=== PATIENT | female | born 1930 | race Caucasian/White ===

== ENCOUNTER 2017-07-04 10:22 | Inpatient (IN) | payer MEDICARE, OTHER ==
[~2017-07-04] VITALS: Ht 162.6 cm; Wt 59.0 kg
[2017-07-04] MEDS ORDERED: Ampicillin/Sulbactam Sod 3 GM in NS 110 ML IV SCH (11:00)
--- NOTE | 2017-07-04 11:51 | Diagnostic Imaging Report ---
Indication: Headache Technique: Contiguous 5 mm thick transaxial imaging of the head obtained in a Siemens Sensation [address] scanner. Soft tissue and bone windows generated. Total Dose length Product (DLP): [address] Dose Index Volume (CTDIvol): 70.38 mGy Comparison: none Findings: There is mild prominence of the ventricles, basal cisterns, and cerebral sulci consistent with atrophy. Mild, nonspecific, white matter hypoattenuation is noted throughout the brain consistent with chronic small vessel disease. There is no midline shift, edema, acute hemorrhage, mass effect, or abnormal extra-axial fluid collections. Bones and extra osseous soft tissues are unremarkable. There is a moderate amount of paranasal sinus opacification. Impression: No acute intracranial bleed, mass effect or edema. Mild atrophy of the brain. Nonspecific white matter hypoattenuation probably due to chronic small vessel disease. Moderate pansinusitis The CT scanner at [facility] is accredited by the [employer] and the scans are performed using dose optimization techniques as appropriate to a performed exam including Automatic Exposure control.
[2017-07-04] MEDS ORDERED: Unasyn 3gm Inj ONE (11:52)
[2017-07-04 12:00] LABS: MEAN CORPUSCULAR HEMOGLOBIN 30.2 PG (27.0-31.0); MEAN CORPUSCULAR HGB CONC 32.8 G/DL (32.0-36.0); MEAN CORPUSCULAR VOLUME 92 FL (80-99); MEAN PLATELET VOLUME 8.5 FL (6.5-10.1); PLATELET COUNT 234 K/UL (150-450)
[2017-07-04 12:06] LABS: PROTHROMBIN TIME 10.6 SEC (9.30-11.50)
[2017-07-04 12:12] LABS: WHITE BLOOD COUNT 39.6 K/UL (4.8-10.8)
[2017-07-04 12:13] LABS: ALANINE AMINOTRANSFERASE 31 U/L (3-33); ALBUMIN/GLOBULIN RATIO 1.2 (1.0-2.7); ANION GAP 17 (5-15); ASPARTATE AMINO TRANSFERASE 23 U/L (5-40); CALCIUM 9.6 mg/dL (8.6-10.2); CARBON DIOXIDE 23 mEQ/L (20-30); CHLORIDE 97 mEQ/L (98-107); CREATININE 0.9 mg/dL (0.5-0.9); HEMOLYSIS 4; POTASSIUM 3.9 mEQ/L (3.4-4.9); SODIUM 137 mEQ/L (135-145); TOTAL PROTEIN 6.6 g/dL (6.6-8.7); TROPONIN I < 0.30 ng/mL (<=0.30)
[2017-07-04 12:21] VITALS: BP 113/74
[2017-07-04 12:23] LABS: CKMB 3.8 ng/mL (< 3.8)
--- NOTE | 2017-07-04 12:32 | Diagnostic Imaging Report ---
Indication: Dyspnea Comparison: 12/29/10 A single view chest radiograph was obtained. Findings: There is a vague density at the right lung base. Pneumonia not excluded. This could be soft tissue attenuation or something overlying the patient is well. The heart is normal in size. The bones are osteopenic. Impression: Question of infiltrate involving the right lung base.
[2017-07-04 12:34] LABS: BAND NEUTROPHILS % (MANUAL) 2 % (0-8); BASOPHILS % (MANUAL) 0 % (0-2); EOSINOPHILS % (MANUAL) 0 % (0-3); LYMPHOCYTES % (MANUAL) 6 % (20-45); METAMYELOCYTES % 1 % (0-0); MYELOCYTES % 2 % (0-0); NEUTROPHILS % (MANUAL) 85 % (45-75); PLATELET ESTIMATE ADEQUATE; PLATELET MORPHOLOGY NORMAL; TOTAL CELLS COUNTED 100
[2017-07-04 12:35] LABS: BILIRUBIN,DIRECT 0.5 mg/dL (0.1-0.3)
[2017-07-04 12:36] LABS: HYPOCHROMASIA 1+
[2017-07-04 14:00] VITALS: BP 130/68
[2017-07-04 14:28] LABS: APPEARANCE,URINE SLIGHTLY CLOUDY; KETONES,URINE 2+ (NEGATIVE); LEUKOCYTE ESTERASE ,URINE 1+ (NEGATIVE); NITRITE,URINE NEGATIVE (NEGATIVE); PH,URINE 5 (4.5-8.0); PROTEIN,URINE 2+ (NEGATIVE); UROBILINOGEN,URINE NORMAL MG/DL (0.0-1.0)
[2017-07-04 14:40] LABS: AMORPHOUS SEDIMENT,UR FEW /LPF; BACTERIA,URINE FEW /HPF; MUCUS,URINE FEW /LPF (NONE/OCC); SQUAMOUS EPITHELIAL CELL,UR FEW /LPF (NONE/OCC)
[2017-07-04] MEDS ORDERED: DuoNeb 0.5-3(2.5)mg/3ml neb HHN PRN (14:45)
[2017-07-04] MEDS ORDERED: LORazepam Inj 2mg/ml 1ml IV PRN (14:45)
[2017-07-04] MEDS ORDERED: Miralax 17gm pkt ORAL PRN (14:45)
--- NOTE | 2017-07-04 14:49 | Emergency Room Report ---
History of Present Illness General Chief Complaint: General Complaint Source: Patient Present Illness HPI This is a 87-year-old female presented after increased fever to 101. She reported increased left eye discharge and had been recently seen by ophthalmology and started on topical antibiotics. Patient had been noted to have decreased hearing. She had been having some increased cough. The patient had been seen by primary care physician 2 days ago. Patient was noted to have elevated white blood count at that time. Patient was followed by Dr. Henderson. The patient had reported history of non-Hodgkin's lymphoma many years ago. She had normal white blood count is for many years Allergies: Coded Allergies: DEMECLOCYCLINE (Verified Allergy, Unknown, 12/29/10) Patient History Past Medical History: see triage record Reviewed Nursing Documentation: PMH: Agreed, PSxH: Agreed Nursing Documentation-PMH Past Medical History: Deferred Review of Systems All Other Systems: negative except mentioned in HPI Physical Exam Vital Signs Date Time Temp Pulse Resp B/P Pulse Ox O2 Delivery O2 Flow Rate FiO2 07/04/17 10:39 98.2 98 16 147/63 97 Room Air 07/04/17 12:21 2.0 Sp02 EP Interpretation: reviewed, normal General Appearance: normal inspection, well appearing, no apparent distress, alert Head: atraumatic ENT: normal voice, other - bilateral ear tm erythema, decreased hearing. Neck: normal inspection, full range of motion, supple, no bony tend Respiratory: normal inspection, chest non-tender, no respiratory distress, no retraction, no wheezing, crackles Cardiovascular #1: regular rate, rhythm, no edema Gastrointestinal: normal inspection, normal bowel sounds, non tender, soft, no guarding, no hernia Genitourinary: no CVA tenderness Musculoskeletal: normal inspection, back normal, normal range of motion Neurologic: normal inspection, alert, responsive, speech normal Psychiatric: normal inspection, judgement/insight normal, mood/affect normal Skin: normal inspection, normal color, no rash Medical Decision Making Diagnostic Impression: Primary Impression: Pneumonia Additional Impressions: Pansinusitis Hx of lymphoma, non-Hodgkins ER Course Patient presented for fever. Differential diagnosis included wasn't limited to pneumonia, urinary tract infection, drug fever, allergic reaction, sepsis, cholecystitis, among others.Because of complexity of patient's case laboratory testing and imaging studies were ordered. A CT imaging of the head was ordered due to the patient's change in hearing. CT read by radiology showed pansinusitis with atrophic changes noted. A chest x-ray one view showed a right lung infiltrate. The patient started on IV antibiotics. Dr. Pal was contacted for inpatient management due to complexity of medical condition. EKG Diagnostic Results Rate: normal Rhythm: NSR ST Segments: no acute changes Rhythm Strip Diag. Results EP Interpretation: yes Rhythm: NSR, no PVC's, no ectopy Last Vital Signs Date Time Temp Pulse Resp B/P Pulse Ox O2 Delivery O2 Flow Rate FiO2 07/04/17 12:21 98.2 101 30 113/74 100 Nasal Cannula 2.0 Status: unchanged [facility] Condition: Stable Referrals: NON PHYSICIAN (PCP) Darnell Worrell Jul 04, 2017 14:49
[2017-07-04] MEDS ORDERED: FAMOTIDINE20 MG ORAL (15:25)
[2017-07-04] MEDS ORDERED: BETIMOL5 M2 OP (15:25)
[2017-07-04] MEDS ORDERED: PATADAY2.5 ML OP (15:25)
[2017-07-04] MEDS ORDERED: VITAMIN D400 INTLU ORAL (15:25)
[2017-07-04] MEDS ORDERED: FISH OIL CAP1000 MG ORAL (15:25)
[2017-07-04 16:24] VITALS: BP 140/45
[2017-07-04] MEDS ORDERED: Rx Monitoring Vancomycin MISC PRN (16:45)
[2017-07-04 17:26] VITALS: BP 138/56
[2017-07-04] MEDS: Vancomycin 1 GM in D5W 275 ML IVPB SCH (19:24)
[2017-07-04] MEDS: Cefepime HCl 1 GM in D5W 110 ML IVPB SCH ×2 (19:24→21:56)
[2017-07-04] MEDS: Heparin 5000 units/ml inj SUBQ SCH (20:38)
[2017-07-04 20:39] VITALS: BP_SYST 127; BP_SYST 161; BP_DIAS 56; BP_DIAS 78
--- NOTE | 2017-07-04 22:08 | History and Physical ---
History of Present Illness General Reason for Hospitalization: General Complaint Present Illness HPI 87 year old female with hx of lymphoma many years ago, presented to with CC of fever and decreasing hearing. She has bouts of cough. Her CXR in ER showed some RLL infiltrate, her wbc was increased. She is admitted for further work up. Allergies: Coded Allergies: DEMECLOCYCLINE (Verified Allergy, Unknown, 12/29/10) Medication History Scheduled Famotidine (Famotidine), 20 MG ORAL DAILY, (Reported) Fish Oil (Fish Oil 1,000 mg Capsule), 1,000 MG ORAL DAILY, (Reported) Olopatadine Hcl (Pataday), 2.5 ML OP PRN, (Reported) Timolol (Betimol), 5 ML OP BID, (Reported) Vitamin D (Vitamin D3), 1,000 UNITS ORAL DAILY, (Reported) Patient History Healthcare decision maker Resuscitation status Full Code Advanced Directive on File Past Medical/Surgical History Past Medical/Surgical History: (1) Hx of lymphoma, non-Hodgkins Review of Systems All Other Systems: negative except mentioned in HPI Physical Exam General Appearance: WD/WN, no apparent distress Lines, tubes and drains: peripheral, central line HEENT: normocephalic, atraumatic Neck: non-tender, supple Respiratory/Chest: chest wall non-tender, lungs clear Cardiovascular/Chest: normal peripheral pulses, normal rate Abdomen: normal bowel sounds, non tender Genitourinary/Rectal: normal genital exam, normal rectal exam Last 24 Hour Vital Signs Date Time Temp Pulse Resp B/P Pulse Ox O2 Delivery O2 Flow Rate FiO2 07/04/17 20:39 98.2 99 20 127/56 95 Nasal Cannula 2.0 07/04/17 17:26 99.7 105 18 138/56 93 Room Air 07/04/17 16:42 98.2 99 35 127/56 95 Room Air 2.0 07/04/17 16:24 98.2 99 35 140/45 95 Room Air 07/04/17 14:00 98.2 101 29 130/68 100 Nasal Cannula 2.0 07/04/17 12:21 98.2 101 30 113/74 100 Nasal Cannula 2.0 07/04/17 10:39 98.2 98 16 147/63 97 Room Air Laboratory Tests Test 07/04/17 11:50 07/04/17 14:00 White Blood Count 39.6 K/UL (4.8-10.8) *H Red Blood Count 4.10 M/UL (4.20-5.40) L Hemoglobin 12.4 G/DL (12.0-16.0) Hematocrit 37.8 % (37.0-47.0) Mean Corpuscular Volume 92 FL (80-99) Mean Corpuscular Hemoglobin 30.2 PG (27.0-31.0) Mean Corpuscular Hemoglobin Concent 32.8 G/DL (32.0-36.0) Red Cell Distribution Width 12.0 % (11.6-14.8) Platelet Count 234 K/UL (150-450) Mean Platelet Volume 8.5 FL (6.5-10.1) Neutrophils (%) (Auto) % (45.0-75.0) Lymphocytes (%) (Auto) % (20.0-45.0) Monocytes (%) (Auto) % (1.0-10.0) Eosinophils (%) (Auto) % (0.0-3.0) Basophils (%) (Auto) % (0.0-2.0) Differential Total Cells Counted 100 Neutrophils % (Manual) 85 % (45-75) H Lymphocytes % (Manual) 6 % (20-45) L Monocytes % (Manual) 4 % (1-10) Eosinophils % (Manual) 0 % (0-3) Basophils % (Manual) 0 % (0-2) Metamyelocytes % 1 % (0-0) H Myelocytes % 2 % (0-0) H Band Neutrophils 2 % (0-8) Platelet Estimate Adequate Platelet Morphology Normal Hypochromasia 1+ Prothrombin Time 10.6 SEC (9.30-11.50) Prothromb Time International Ratio 1.0 (0.9-1.1) Activated Partial Thromboplast Time 34 SEC (23-33) H Sodium Level 137 mEQ/L (135-145) Potassium Level 3.9 mEQ/L (3.4-4.9) Chloride Level 97 mEQ/L (98-107) L Carbon Dioxide Level 23 mEQ/L (20-30) Anion Gap 17 (5-15) H Blood Urea Nitrogen 20 mg/dL (7-23) Creatinine 0.9 mg/dL (0.5-0.9) Estimat Glomerular Filtration Rate mL/min (>60) Glucose Level 156 mg/dL (74-106) H Lactic Acid Level 1.70 mmol/L (0.66-2.22) Calcium Level 9.6 mg/dL (8.6-10.2) Total Bilirubin 1.3 mg/dL (0.0-1.2) H Direct Bilirubin 0.5 mg/dL (0.1-0.3) H Aspartate Amino Transf (AST/SGOT) 23 U/L (5-40) Alanine Aminotransferase (ALT/SGPT) 31 U/L (3-33) Alkaline Phosphatase 176 U/L (35-104) H Total Creatine Kinase 85 U/L (26-140) Creatine Kinase MB 3.8 ng/mL (< 3.8) Creatine Kinase MB Relative Index 4.4 Troponin I < 0.30 ng/mL (<=0.30) Total Protein 6.6 g/dL (6.6-8.7) Albumin 3.7 g/dL (3.5-5.2) Globulin 2.9 g/dL Albumin/Globulin Ratio 1.2 (1.0-2.7) Urine Color Yellow Urine Appearance Slightly cloudy Urine pH 5 (4.5-8.0) Urine Specific [place] 1.015 (1.005-1.035) Urine Protein 2+ (NEGATIVE) H Urine Glucose (UA) Negative (NEGATIVE) Urine Ketones 2+ (NEGATIVE) H Urine Occult Blood 3+ (NEGATIVE) H Urine Nitrite Negative (NEGATIVE) Urine Bilirubin Negative (NEGATIVE) Urine Urobilinogen Normal MG/DL (0.0-1.0) Urine Leukocyte Esterase 1+ (NEGATIVE) H Urine RBC 5-10 /HPF (0 - 2) H Urine WBC 2-4 /HPF (0 - 2) Urine Squamous Epithelial Cells Few /LPF (NONE/OCC) Urine Amorphous Sediment Few /LPF (NONE) H Urine Bacteria Few /HPF (NONE) Urine Mucus Few /LPF (NONE/OCC) H Height (Feet): 5 Height (Inches): 4.00 Weight (Pounds): 130 Medications Current Medications Medications (Trade) Dose Ordered Sig/Art Route PRN Reason Start Time Stop Time Status Last Admin Dose Admin Acetaminophen (Tylenol) 650 mg Q4H PRN ORAL FEVER 07/04/17 14:45 08/03/17 14:44 Albuterol/ Ipratropium 3 ml 3 ml Q4H PRN HHN Shortness of Breath 07/04/17 14:45 07/09/17 14:44 Cefepime HCl 1 gm/ Dextrose 110 ml @ 220 mls/hr Q24HRS IVPB 07/04/17 18:30 07/11/17 18:29 07/04/17 21:56 Dextrose (Dextrose 50%) STAT PRN IV Hypoglycemia 07/04/17 14:45 08/03/17 14:44 Heparin Sodium (Porcine) (Heparin 5000 units/ml) 5,000 units EVERY 12 HOURS SUBQ 07/04/17 21:00 08/03/17 20:59 07/04/17 20:38 Lorazepam (Ativan 2mg/ml 1ml) 2 mg Q2H PRN IV For Anxiety 07/04/17 14:45 07/11/17 14:44 Morphine Sulfate (Morphine Sulfate) 4 mg Q4H PRN IVP Severe Pain (Pain Scale 7-10) 07/04/17 14:45 07/11/17 14:44 Ondansetron HCl (Zofran) 4 mg Q6H PRN IVP Nausea & Vomiting 07/04/17 14:45 08/03/17 14:44 Polyethylene Glycol (Miralax) 17 gm DAILYPRN PRN ORAL Constipation 07/04/17 14:45 08/03/17 14:44 Sodium Chloride (0.45% NS 1000ml) 1,000 ml @ 50 mls/hr Q20H IV 07/04/17 17:00 08/03/17 16:59 07/04/17 19:01 Vancomycin HCl (Rx Monitoring Vancomycin) 1 ea DAILY PRN MISC PRN RX PROTOCOL 07/04/17 16:45 08/03/17 16:44 Vancomycin HCl/ Dextrose (Vancomycin/D5W) 275 ml @ 183.3 mls/ hr Q24H IVPB 07/04/17 17:00 07/09/17 16:59 07/04/17 19:24 Assessment/Plan Problem List: (1) Sepsis ICD Codes: A41.9 - Sepsis, unspecified organism SNOMED: 74658758 (2) Pneumonia ICD Codes: J18.9 - Pneumonia, unspecified organism SNOMED: 813053258 (3) Hx of lymphoma, non-Hodgkins ICD Codes: Z85.72 - Personal history of non-Hodgkin lymphomas SNOMED: 451849540 Assessment/Plan f/u wbc blood smear continue abx check sputum cultures ent evaluation ID evaluation. ADALGISA CHINCHILLA Jul 04, 2017 22:08
[2017-07-05] VITALS (7 sets, daily range): BP systolic 104–128; BP diastolic 56–64
[2017-07-05 07:00] LABS: MEAN CORPUSCULAR HEMOGLOBIN 30.3 PG (27.0-31.0); MEAN CORPUSCULAR HGB CONC 32.9 G/DL (32.0-36.0); MEAN CORPUSCULAR VOLUME 92 FL (80-99); MEAN PLATELET VOLUME 8.6 FL (6.5-10.1); PLATELET COUNT 200 K/UL (150-450); RED BLOOD COUNT 3.59 M/UL (4.20-5.40)
[2017-07-05 07:05] LABS: WHITE BLOOD COUNT 38.4 K/UL (4.8-10.8)
[2017-07-05 07:19] LABS: ANION GAP 13 (5-15); CALCIUM 8.9 mg/dL (8.6-10.2); CARBON DIOXIDE 24 mEQ/L (20-30); CHLORIDE 102 mEQ/L (98-107); CREATININE 0.7 mg/dL (0.5-0.9); HEMOLYSIS 2; POTASSIUM 3.4 mEQ/L (3.4-4.9); SODIUM 139 mEQ/L (135-145)
[2017-07-05 08:08] LABS: BAND NEUTROPHILS % (MANUAL) 7 % (0-8); BASOPHILS % (MANUAL) 0 % (0-2); EOSINOPHILS % (MANUAL) 0 % (0-3); HYPOCHROMASIA 1+; LYMPHOCYTES % (MANUAL) 4 % (20-45); MYELOCYTES % 5 % (0-0); NEUTROPHILS % (MANUAL) 80 % (45-75); PLATELET ESTIMATE ADEQUATE; PLATELET MORPHOLOGY NORMAL; TOTAL CELLS COUNTED 100
[2017-07-05] MEDS: Heparin 5000 units/ml inj SUBQ SCH ×2 (08:42→20:51)
[2017-07-05] MEDS ORDERED: Tubing IV Secondary IV ONE (09:07)
[2017-07-05 10:05] LABS: OTHERS PATHOLOGIST COMMENT
--- NOTE | 2017-07-05 13:11 | Infectious Diseases Prog Note ---
Assessment/Plan Assessment/Plan ID consult dictated # [id number]; Pneumonia Pansinusitis NHL in remission Conjunctivitis Subjective Allergies: Coded Allergies: DEMECLOCYCLINE (Verified Allergy, Unknown, 12/29/10) Objective Vital Signs Last 24 Hour Vital Signs Date Time Temp Pulse Resp B/P Pulse Ox O2 Delivery O2 Flow Rate FiO2 07/05/17 11:48 98.0 85 20 119/62 96 Nasal Cannula 2.0 07/05/17 08:36 98.3 81 20 117/56 96 Nasal Cannula 07/05/17 04:45 98.6 83 18 127/59 97 Room Air 83 07/05/17 00:54 96.4 73 20 104/64 98 Nasal Cannula 73 07/04/17 20:39 98.2 99 20 127/56 95 Nasal Cannula 2.0 07/04/17 17:26 99.7 105 18 138/56 93 Room Air 07/04/17 16:42 98.2 99 35 127/56 95 Room Air 2.0 07/04/17 16:24 98.2 99 35 140/45 95 Room Air 07/04/17 14:00 98.2 101 29 130/68 100 Nasal Cannula 2.0 Height (Feet): 5 Height (Inches): 4.00 Weight (Pounds): 130 Laboratory Tests Test 07/04/17 14:00 07/05/17 05:45 Urine Color Yellow Urine Appearance Slightly cloudy Urine pH 5 (4.5-8.0) Urine Specific [place] 1.015 (1.005-1.035) Urine Protein 2+ (NEGATIVE) H Urine Glucose (UA) Negative (NEGATIVE) Urine Ketones 2+ (NEGATIVE) H Urine Occult Blood 3+ (NEGATIVE) H Urine Nitrite Negative (NEGATIVE) Urine Bilirubin Negative (NEGATIVE) Urine Urobilinogen Normal MG/DL (0.0-1.0) Urine Leukocyte Esterase 1+ (NEGATIVE) H Urine RBC 5-10 /HPF (0 - 2) H Urine WBC 2-4 /HPF (0 - 2) Urine Squamous Epithelial Cells Few /LPF (NONE/OCC) Urine Amorphous Sediment Few /LPF (NONE) H Urine Bacteria Few /HPF (NONE) Urine Mucus Few /LPF (NONE/OCC) H White Blood Count 38.4 K/UL (4.8-10.8) *H Red Blood Count 3.59 M/UL (4.20-5.40) L Hemoglobin 10.9 G/DL (12.0-16.0) L Hematocrit 33.0 % (37.0-47.0) L Mean Corpuscular Volume 92 FL (80-99) Mean Corpuscular Hemoglobin 30.3 PG (27.0-31.0) Mean Corpuscular Hemoglobin Concent 32.9 G/DL (32.0-36.0) Red Cell Distribution Width 12.0 % (11.6-14.8) Platelet Count 200 K/UL (150-450) Mean Platelet Volume 8.6 FL (6.5-10.1) Neutrophils (%) (Auto) % (45.0-75.0) Lymphocytes (%) (Auto) % (20.0-45.0) Monocytes (%) (Auto) % (1.0-10.0) Eosinophils (%) (Auto) % (0.0-3.0) Basophils (%) (Auto) % (0.0-2.0) Differential Total Cells Counted 100 Neutrophils % (Manual) 80 % (45-75) H Lymphocytes % (Manual) 4 % (20-45) L Monocytes % (Manual) 4 % (1-10) Eosinophils % (Manual) 0 % (0-3) Basophils % (Manual) 0 % (0-2) Myelocytes % 5 % (0-0) H Band Neutrophils 7 % (0-8) Platelet Estimate Adequate Platelet Morphology Normal Hypochromasia 1+ Sodium Level 139 mEQ/L (135-145) Potassium Level 3.4 mEQ/L (3.4-4.9) Chloride Level 102 mEQ/L (98-107) Carbon Dioxide Level 24 mEQ/L (20-30) Anion Gap 13 (5-15) Blood Urea Nitrogen 13 mg/dL (7-23) Creatinine 0.7 mg/dL (0.5-0.9) Estimat Glomerular Filtration Rate mL/min (>60) Glucose Level 115 mg/dL (74-106) H Calcium Level 8.9 mg/dL (8.6-10.2) Phosphorus Level 3.0 mg/dL (2.5-4.8) Albumin 2.8 g/dL (3.5-5.2) L Current Medications Medications (Trade) Dose Ordered Sig/Art Route PRN Reason Start Time Stop Time Status Last Admin Dose Admin Acetaminophen (Tylenol) 650 mg Q4H PRN ORAL FEVER 07/04/17 14:45 08/03/17 14:44 Albuterol/ Ipratropium 3 ml 3 ml Q4H PRN HHN Shortness of Breath 07/04/17 14:45 07/09/17 14:44 Cefepime HCl 1 gm/ Dextrose 110 ml @ 220 mls/hr Q24HRS IVPB 07/04/17 18:30 07/11/17 18:29 07/04/17 21:56 Dextrose (Dextrose 50%) STAT PRN IV Hypoglycemia 07/04/17 14:45 08/03/17 14:44 Heparin Sodium (Porcine) (Heparin 5000 units/ml) 5,000 units EVERY 12 HOURS SUBQ 07/04/17 21:00 08/03/17 20:59 07/05/17 08:42 Lorazepam (Ativan 2mg/ml 1ml) 2 mg Q2H PRN IV For Anxiety 07/04/17 14:45 07/11/17 14:44 Morphine Sulfate (Morphine Sulfate) 4 mg Q4H PRN IVP Severe Pain (Pain Scale 7-10) 07/04/17 14:45 07/11/17 14:44 Non-Formulary Medication (Non-Formulary Med) 1 ea DAILY ORAL 07/05/17 12:30 08/04/17 12:29 UNV Ondansetron HCl (Zofran) 4 mg Q6H PRN IVP Nausea & Vomiting 07/04/17 14:45 08/03/17 14:44 Polyethylene Glycol (Miralax) 17 gm DAILYPRN PRN ORAL Constipation 07/04/17 14:45 08/03/17 14:44 Sodium Chloride (0.45% NS 1000ml) 1,000 ml @ 50 mls/hr Q20H IV 07/04/17 17:00 08/03/17 16:59 07/04/17 19:01 Timolol Maleate (Timoptic 0.5% Op Soln) 1 drop TWICE A DAY BOTH EYES 07/05/17 13:30 08/04/17 13:29 Tobramycin/ Dexamethasone (Tobradex Opth Susp) 1 drop TID BOTH EYES 07/05/17 13:30 08/04/17 13:29 Vancomycin HCl (Rx Monitoring Vancomycin) 1 ea DAILY PRN MISC PRN RX PROTOCOL 07/04/17 16:45 08/03/17 16:44 Vancomycin HCl/ Dextrose (Vancomycin/D5W) 275 ml @ 183.3 mls/ hr Q24H IVPB 07/04/17 17:00 07/09/17 16:59 07/04/17 19:24 PRASAD MCGINNIS Jul 05, 2017 13:11
[2017-07-05] MEDS: Timolol 0.5% Op Soln 2.5ml BOTH EYES SCH ×2 (13:30→17:23)
[2017-07-05] MEDS: Tobradex Opth Susp 2.5ml BOTH EYES SCH ×2 (13:30→17:23)
--- NOTE | 2017-07-05 16:19 | Pulmonology Progress Note ---
Assessment/Plan Problems: (1) Sepsis (2) Pneumonia (3) Hx of lymphoma, non-Hodgkins Assessment/Plan blood smear check sputum pt/ot awaiting ENT evaluation Subjective ROS Limited/Unobtainable: No Interval Events: no new complains, still coughing Allergies: Coded Allergies: DEMECLOCYCLINE (Verified Allergy, Unknown, 12/29/10) Objective Last 24 Hour Vital Signs Date Time Temp Pulse Resp B/P Pulse Ox O2 Delivery O2 Flow Rate FiO2 07/05/17 11:48 98.0 85 20 119/62 96 Nasal Cannula 2.0 07/05/17 08:36 98.3 81 20 117/56 96 Nasal Cannula 07/05/17 04:45 98.6 83 18 127/59 97 Room Air 83 07/05/17 00:54 96.4 73 20 104/64 98 Nasal Cannula 73 07/04/17 20:39 98.2 99 20 127/56 95 Nasal Cannula 2.0 07/04/17 17:26 99.7 105 18 138/56 93 Room Air 07/04/17 16:42 98.2 99 35 127/56 95 Room Air 2.0 07/04/17 16:24 98.2 99 35 140/45 95 Room Air Intake and Output 07/04/17 07/05/17 19:00 07:00 Intake Total 986 ml Balance 986 ml IV Total 986 ml # Voids 1 General Appearance: WD/WN, no acute distress HEENT: normocephalic, atraumatic Respiratory/Chest: chest wall non-tender, lungs clear Breasts: no masses Cardiovascular: normal rate Abdomen: normal bowel sounds, no organomegaly Genitourinary: normal external genitalia Extremities: no clubbing Skin: no ulcers Neurologic/Psychiatric: abnormal gait, normal mood/affect Lymphatic: no neck adenopathy Laboratory Tests 07/05/17 05:45: White Blood Count 38.4*H, Red Blood Count 3.59L, Hemoglobin 10.9L, Hematocrit 33.0L, Mean Corpuscular Volume 92, Mean Corpuscular Hemoglobin 30.3, Mean Corpuscular Hemoglobin Concent 32.9, Red Cell Distribution Width 12.0, Platelet Count 200, Mean Platelet Volume 8.6, Neutrophils (%) (Auto) , Lymphocytes (%) ( Auto) , Monocytes (%) (Auto) , Eosinophils (%) (Auto) , Basophils (%) (Auto) , Differential Total Cells Counted 100, Neutrophils % (Manual) 80H, Lymphocytes % (Manual) 4L, Monocytes % (Manual) 4, Eosinophils % (Manual) 0, Basophils % ( Manual) 0, Myelocytes % 5H, Band Neutrophils 7, Platelet Estimate Adequate, Platelet Morphology Normal, Hypochromasia 1+, Sodium Level 139, Potassium Level 3.4, Chloride Level 102, Carbon Dioxide Level 24, Anion Gap 13, Blood Urea Nitrogen 13, Creatinine 0.7, Estimat Glomerular Filtration Rate , Glucose Level 115H, Calcium Level 8.9, Phosphorus Level 3.0, Albumin 2.8L Current Medications Medications (Trade) Dose Ordered Sig/Art Route PRN Reason Start Time Stop Time Status Last Admin Dose Admin Acetaminophen (Tylenol) 650 mg Q4H PRN ORAL FEVER 07/04/17 14:45 08/03/17 14:44 Albuterol/ Ipratropium 3 ml 3 ml Q4H PRN HHN Shortness of Breath 07/04/17 14:45 07/09/17 14:44 Cefepime HCl 1 gm/ Dextrose 110 ml @ 220 mls/hr Q24HRS IVPB 07/04/17 18:30 07/11/17 18:29 07/04/17 21:56 Dextrose (Dextrose 50%) STAT PRN IV Hypoglycemia 07/04/17 14:45 08/03/17 14:44 Heparin Sodium (Porcine) (Heparin 5000 units/ml) 5,000 units EVERY 12 HOURS SUBQ 07/04/17 21:00 08/03/17 20:59 07/05/17 08:42 Lorazepam (Ativan 2mg/ml 1ml) 2 mg Q2H PRN IV For Anxiety 07/04/17 14:45 07/11/17 14:44 Morphine Sulfate (Morphine Sulfate) 4 mg Q4H PRN IVP Severe Pain (Pain Scale 7-10) 07/04/17 14:45 07/11/17 14:44 Ondansetron HCl (Zofran) 4 mg Q6H PRN IVP Nausea & Vomiting 07/04/17 14:45 08/03/17 14:44 Patient Own Medication (Patient's Own Med) 1 ea BID BOTH EYES 07/05/17 18:00 08/04/17 17:59 Polyethylene Glycol (Miralax) 17 gm DAILYPRN PRN ORAL Constipation 07/04/17 14:45 08/03/17 14:44 Sodium Chloride (0.45% NS 1000ml) 1,000 ml @ 50 mls/hr Q20H IV 07/04/17 17:00 08/03/17 16:59 07/05/17 14:41 Timolol Maleate (Timoptic 0.5% Op Soln) 1 drop TWICE A DAY BOTH EYES 07/05/17 13:30 08/04/17 13:29 Tobramycin/ Dexamethasone (Tobradex Opth Susp) 1 drop TID BOTH EYES 07/05/17 13:30 08/04/17 13:29 Vancomycin HCl (Rx Monitoring Vancomycin) 1 ea DAILY PRN MISC PRN RX PROTOCOL 07/04/17 16:45 08/03/17 16:44 Vancomycin HCl/ Dextrose (Vancomycin/D5W) 275 ml @ 183.3 mls/ hr Q24H IVPB 07/04/17 17:00 07/09/17 16:59 07/04/17 19:24 ADALGISA CHINCHILLA Jul 05, 2017 16:19
[2017-07-05] MEDS: AZOPT 1% BOTH EYES SCH (17:22)
[2017-07-05] MEDS: OPTH BOTH EYES SCH (17:22)
[2017-07-05] MEDS: Vancomycin 1 GM in D5W 275 ML IVPB SCH (17:22)
[2017-07-05 18:31] LABS: PATH BLOOD SMEAR/OMC SENT TO PATHOLOGIST
[2017-07-05 18:41] LABS: URIC ACID 7.4 mg/dL (3.0-7.5)
[2017-07-05 19:31] LABS: THYROID STIMULATING HORMONE 1.4 uIU/mL (0.300-4.500)
[2017-07-05] MEDS: Cefepime 2gm/D5W 110ml IV SCH ×2 (20:47)
--- NOTE | 2017-07-05 23:30 | Consultation ---
DATE OF CONSULTATION: 07/05/2017 HEMATOLOGY/ONCOLOGY CONSULTATION CONSULTING PHYSICIAN: Adrián Barrios M.D. REQUESTING PHYSICIAN: Rosalie Pal M.D. REASON FOR CONSULTATION: Evaluation of leukocytosis. IDENTIFICATION: Dear Dr. Pal, The patient is a pleasant 87-year-old female with a past medical history significant for non-Hodgkin's lymphoma, status post chemotherapy, has been in remission for several years, at this time presented to the hospital with fever as well as decreasing hearing. She has been having some cough. Her chest x-ray showed a right lower lobe infiltrate. She had a peripheral smear that was performed, which showed 36,000 white cells as well as left shifted myeloid maturation, 5% myelocytes. Hematology service is consulted for further evaluation and treatment. INR is currently 1. Creatinine 0.7. Albumin is 2.8. PAST MEDICAL HISTORY: Lymphoma, in remission. MEDICATIONS: Fish oil, timolol, vitamin D, and Pepcid. ALLERGIES: Demecycline. REVIEW OF SYSTEMS: Constitutional: No fever, chills, or night sweats. Skin: No rashes, lumps, or itching. HEENT: No headache or vision changes. Breasts: No lumps, pain, or discharge. Pulmonary: No cough, sputum, or shortness of breath. Gastrointestinal: No nausea, vomiting, or diarrhea. Genitourinary: No dysuria, frequency, or urgency. Musculoskeletal: No joint swelling, muscle pain, or trauma. Neurological: No dizziness, fainting, or seizures. PHYSICAL EXAMINATION: GENERAL: The patient is in no distress. VITAL SIGNS: Blood pressure 127/86, heart rate 80, respiratory rate 12, and O2 saturation 99% on room air. PULMONARY: Decreased breath sounds. CARDIOVASCULAR: Regular rate. No S3 or S4. ABDOMEN: Soft, nontender, and nondistended. EXTREMITIES: A 1+ edema. LABORATORY AND DIAGNOSTIC DATA: WBC 39,000; hemoglobin 12.4, and platelet count of 276,000. Peripheral smear showed left-sided maturation. ASSESSMENT AND PLAN: 1. Granulocytosis concerning for leukemia such as chronic lymphocytic leukemia versus chronic neutrophilic leukemia. We will send for peripheral flow cytometry. 2. Leukocytosis, rule out underlying infection. 3. Anemia, secondary to chronic disease, rule out bleed. Anemia workup ordered. 4. Right lower lobe infiltrate pneumonia, on antibiotics. 5. Sepsis, on antibiotics. 6. Lymphoma history, non-Hodgkin's. Evaluate currently with a peripheral smear for recurrence of worsening case scenario. Adrián Barrios M.D. DR: ALANA JOB#: [id number] CC:
--- NOTE | 2017-07-05 23:30 | Consultation ---
DATE OF CONSULTATION: 07/05/2017 INFECTIOUS DISEASE CONSULTATION This consultation is for coverage of Dr. López. PRIMARY ATTENDING PHYSICIAN: Rosalie Pal M.D. REASON FOR CONSULTATION: Pneumonia, sinusitis, and leukocytosis. HISTORY OF PRESENT ILLNESS: This 87-year-old female admitted yesterday complaining of coughing. The patient had problems started with runny eyes. She was seen by a doctor outside and had tobramycin eye drops, then developed some pain in the ears and after that has developed coughing that is mostly dry. PAST MEDICAL HISTORY: Non-Hodgkin's lymphoma in remission for 5 years. The patient has a history of gallstone pancreatitis, history of hip replacement, and difficulty on walking and walks with a walker. MEDICATIONS: Timolol eye drops, tobramycin,ophthalmic, heparin subcutaneous, vancomycin, Tylenol, morphine, polyethylene glycol, and lorazepam. ALLERGIES: No known drug allergy. On the computer, it is written as demeclocycline. SOCIAL HISTORY: The patient now lives in [facility]. No history of alcohol, drug abuse, or smoking. REVIEW OF SYSTEMS: She has some pain in ears and legs. No fever. No chills. Dry coughing. No nausea. No vomiting. PHYSICAL EXAMINATION: GENERAL APPEARANCE: No acute distress. VITAL SIGNS: Temperature 98 degrees, pulse 85, and blood pressure 119/62. HEAD AND NECK: [place] conjunctivae. Uses biocular glasses. No oral lesion. Ear canals and tympanic membranes are within normal. HEART: Regular. LUNGS: Clear. ABDOMEN: Soft. EXTREMITIES: No edema. LABORATORY AND DIAGNOSTIC DATA: Sodium 139, potassium 3.4, chloride 102, bicarbonate 24, BUN 13, creatinine 0.7, and glucose 115. WBC 38.4, hemoglobin 10.2, hematocrit 33, platelets 200,000, and neutrophils are 80%. CT scan of the head showed pansinusitis. Chest x-ray shows questionable infiltrate in right lung. IMPRESSION: 1. Pneumonia, questionable pneumonia in the right lung. 2. Pansinusitis. 3. Non-Hodgkin's lymphoma, in remission. 4. Leukocytosis. 5. Conjunctivitis. RECOMMENDATION: We will continue with cefepime and vancomycin. We will follow up the cultures and her antibiotic. At the end of my exam, I thank, Dr. Pal, for involving me in the care of this patient. Shukri Braxton M.D. DR: SUSU JOB#: [id number] CC: CINDY
[2017-07-06] VITALS: BP 139/62
[2017-07-06] MEDS: Morphine Sulfate 4mg/ml Inj IVP PRN (01:07)
[2017-07-06 04:00] VITALS: BP 126/70
[2017-07-06 08:07] VITALS: BP 140/66
[2017-07-06] MEDS: Tobradex Opth Susp 2.5ml BOTH EYES SCH ×3 (08:41→17:40)
[2017-07-06] MEDS: AZOPT 1% BOTH EYES SCH ×2 (08:41→17:40)
[2017-07-06] MEDS: Timolol 0.5% Op Soln 2.5ml BOTH EYES SCH ×2 (08:41→17:40)
[2017-07-06] MEDS: OPTH BOTH EYES SCH ×2 (08:41→17:40)
[2017-07-06] MEDS: Heparin 5000 units/ml inj SUBQ SCH ×2 (08:43→20:54)
[2017-07-06 11:25] VITALS: BP 131/66
[2017-07-06 15:54] VITALS: BP 130/60
--- NOTE | 2017-07-06 16:11 | Pulmonology Progress Note ---
Assessment/Plan Problems: (1) Sepsis (2) Pneumonia (3) Hx of lymphoma, non-Hodgkins Assessment/Plan blood smear check sputum pt/ot awaiting ENT evaluation check cultures continue abx Subjective ROS Limited/Unobtainable: No Constitutional: Reports: no symptoms HEENT: Repors: no symptoms Respiratory: Reports: no symptoms Allergies: Coded Allergies: DEMECLOCYCLINE (Verified Allergy, Unknown, 12/29/10) Objective Last 24 Hour Vital Signs Date Time Temp Pulse Resp B/P Pulse Ox O2 Delivery O2 Flow Rate FiO2 07/06/17 15:54 97.0 77 18 130/60 100 Nasal Cannula 2.0 07/06/17 11:25 98.2 81 20 131/66 100 Nasal Cannula 2.0 07/06/17 08:07 97.9 91 20 140/66 98 Nasal Cannula 2.0 07/06/17 04:00 98.2 81 18 126/70 96 Nasal Cannula 2.0 07/06/17 01:58 98.1 07/06/17 00:00 98.1 85 18 139/62 97 Nasal Cannula 2.0 07/05/17 20:00 98.6 71 18 127/64 Nasal Cannula 2.0 07/05/17 19:52 98.4 71 18 127/64 97 Nasal Cannula 2.0 Intake and Output 07/05/17 07/06/17 19:00 07:00 Intake Total 1053.3 ml 903.3 ml Balance 1053.3 ml 903.3 ml Intake Oral 420 ml IV Total 633.3 ml 903.3 ml # Voids 1 4 Objective General Appearance: WD/WN HEENT: normocephalic, atraumatic Respiratory/Chest: chest wall non-tender, lungs clear Breasts: no masses Cardiovascular: normal peripheral pulses, normal rate Abdomen: normal bowel sounds, soft, non tender Genitourinary: normal external genitalia Extremities: no cyanosis Skin: no rash 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, normal mood/affect Lymphatic: no groin adenopathy Microbiology Date/Time Source Procedure Growth Status 07/04/17 11:50 Blood Blood Culture - Preliminary NO GROWTH AFTER 24 HOURS Resulted 07/04/17 11:50 Blood Blood Culture - Preliminary NO GROWTH AFTER 24 HOURS Resulted 07/05/17 23:00 Sputum Gram Stain - Final Resulted 07/05/17 23:00 Sputum Sputum Culture Pending Resulted Laboratory Tests 07/05/17 18:00: Reticulocyte Count 0.2, Fibrinogen > 800H, Uric Acid 7.4, Iron Level 25L, Total Iron Binding Capacity 130L, Percent Iron Saturation 19, Unsaturated Iron Binding 105L, Ferritin 989H, Vitamin B12 Level 673, Methylmalonic Acid [Pending] , Folate [Pending], Thyroid Stimulating Hormone (TSH) 1.400 Current Medications Medications (Trade) Dose Ordered Sig/Art Route PRN Reason Start Time Stop Time Status Last Admin Dose Admin Acetaminophen (Tylenol) 650 mg Q4H PRN ORAL FEVER 07/04/17 14:45 08/03/17 14:44 Albuterol/ Ipratropium 3 ml 3 ml Q4H PRN HHN Shortness of Breath 07/04/17 14:45 07/09/17 14:44 Cefepime HCl/ Dextrose (Maxipime/D5W) 110 ml @ 220 mls/hr Q24HRS IV 07/05/17 20:00 07/12/17 19:59 07/05/17 20:47 Dextrose (Dextrose 50%) STAT PRN IV Hypoglycemia 07/04/17 14:45 08/03/17 14:44 Heparin Sodium (Porcine) (Heparin 5000 units/ml) 5,000 units EVERY 12 HOURS SUBQ 07/04/17 21:00 08/03/17 20:59 07/06/17 08:43 Lorazepam (Ativan 2mg/ml 1ml) 2 mg Q2H PRN IV For Anxiety 07/04/17 14:45 07/11/17 14:44 Morphine Sulfate (Morphine Sulfate) 4 mg Q4H PRN IVP Severe Pain (Pain Scale 7-10) 07/04/17 14:45 07/11/17 14:44 07/06/17 01:07 Ondansetron HCl (Zofran) 4 mg Q6H PRN IVP Nausea & Vomiting 07/04/17 14:45 08/03/17 14:44 Patient Own Medication 1 ea 1 ea BID BOTH EYES 07/05/17 18:00 08/04/17 17:59 07/06/17 08:41 Polyethylene Glycol (Miralax) 17 gm DAILYPRN PRN ORAL Constipation 07/04/17 14:45 08/03/17 14:44 Sodium Chloride (0.45% NS 1000ml) 1,000 ml @ 50 mls/hr Q20H IV 07/04/17 17:00 08/03/17 16:59 07/06/17 15:09 Timolol Maleate (Timoptic 0.5% Op Soln) 1 drop TWICE A DAY BOTH EYES 07/05/17 13:30 08/04/17 13:29 07/06/17 08:41 Tobramycin/ Dexamethasone (Tobradex Opth Susp) 1 drop TID BOTH EYES 07/05/17 13:30 08/04/17 13:29 07/06/17 13:15 Vancomycin HCl (Rx Monitoring Vancomycin) 1 ea DAILY PRN MISC PRN RX PROTOCOL 07/04/17 16:45 08/03/17 16:44 Vancomycin HCl/ Dextrose (Vancomycin/D5W) 275 ml @ 183.3 mls/ hr Q24H IVPB 07/04/17 17:00 07/09/17 16:59 07/05/17 17:22 ADALGISA CHNICHILLA Jul 06, 2017 16:11
[2017-07-06] MEDS ORDERED: Tubing IV Secondary IV ONE (16:50)
[2017-07-06] MEDS: Vancomycin 1 GM in D5W 275 ML IVPB SCH (17:40)
[2017-07-06 20:00] VITALS: BP 139/63
[2017-07-06] MEDS: Cefepime 2gm/D5W 110ml IV SCH ×2 (20:49)
[2017-07-07] VITALS: BP 120/56
[2017-07-07 04:00] VITALS: BP 142/66
[2017-07-07] MEDS: Morphine Sulfate 4mg/ml Inj IVP PRN (05:25)
[2017-07-07 08:34] VITALS: BP 149/72
--- NOTE | 2017-07-07 09:24 | Infectious Diseases Prog Note ---
Assessment/Plan Assessment/Plan A; Pneumonia Pansinusitis NHL in remission Conjunctivitis Left Knee guerrero's cyst P; Continue Cefepime Discontinue vancomycin F/U CBC Subjective ROS Limited/Unobtainable: No Constitutional: Reports: no symptoms HEENT: Reports: other - pain in ears Respiratory: Reports: dry cough Gastrointestinal/Abdominal: Reports: bloating Genitourinary: Reports: other - urgency Musculoskeletal: Reports: no symptoms Allergies: Coded Allergies: DEMECLOCYCLINE (Verified Allergy, Unknown, 12/29/10) Objective Vital Signs Last 24 Hour Vital Signs Date Time Temp Pulse Resp B/P Pulse Ox O2 Delivery O2 Flow Rate FiO2 07/07/17 08:34 97.7 87 19 149/72 97 Nasal Cannula 2.0 07/07/17 04:00 97.7 80 20 142/66 98 Nasal Cannula 3.0 07/07/17 00:00 97.7 78 18 120/56 97 Nasal Cannula 2.0 07/06/17 21:54 97.7 07/06/17 20:00 99.9 84 19 139/63 98 Room Air 07/06/17 15:54 97.0 77 18 130/60 100 Nasal Cannula 2.0 07/06/17 11:25 98.2 81 20 131/66 100 Nasal Cannula 2.0 Height (Feet): 5 Height (Inches): 4.00 Weight (Pounds): 130 General Appearance: no acute distress HEENT: mucous membranes moist Respiratory/Chest: lungs clear Cardiovascular: normal rate Abdomen: soft, non tender Extremities: no edema Neurologic/Psychiatric: alert, oriented x 3, responsive, other - hearing loss Microbiology Date/Time Source Procedure Growth Status 07/04/17 11:50 Blood Blood Culture - Preliminary NO GROWTH AFTER 48 HOURS Resulted 07/04/17 11:50 Blood Blood Culture - Preliminary NO GROWTH AFTER 48 HOURS Resulted 07/05/17 23:00 Sputum Gram Stain - Final Resulted 07/05/17 23:00 Sputum Sputum Culture - Preliminary NORMAL UPPER RESPIRATORY SUYAPA PRESENT Resulted Current Medications Medications (Trade) Dose Ordered Sig/Art Route PRN Reason Start Time Stop Time Status Last Admin Dose Admin Acetaminophen (Tylenol) 650 mg Q4H PRN ORAL FEVER 07/04/17 14:45 08/03/17 14:44 07/06/17 20:55 Albuterol/ Ipratropium 3 ml 3 ml Q4H PRN HHN Shortness of Breath 07/04/17 14:45 07/09/17 14:44 Cefepime HCl/ Dextrose (Maxipime/D5W) 110 ml @ 220 mls/hr Q24HRS IV 07/05/17 20:00 07/12/17 19:59 07/06/17 20:49 Dextrose (Dextrose 50%) STAT PRN IV Hypoglycemia 07/04/17 14:45 08/03/17 14:44 Heparin Sodium (Porcine) (Heparin 5000 units/ml) 5,000 units EVERY 12 HOURS SUBQ 07/04/17 21:00 08/03/17 20:59 07/06/17 20:54 Lorazepam (Ativan 2mg/ml 1ml) 2 mg Q2H PRN IV For Anxiety 07/04/17 14:45 07/11/17 14:44 Morphine Sulfate (Morphine Sulfate) 4 mg Q4H PRN IVP Severe Pain (Pain Scale 7-10) 07/04/17 14:45 07/11/17 14:44 07/07/17 05:25 Ondansetron HCl (Zofran) 4 mg Q6H PRN IVP Nausea & Vomiting 07/04/17 14:45 08/03/17 14:44 Patient Own Medication 1 ea 1 ea BID BOTH EYES 07/05/17 18:00 08/04/17 17:59 07/06/17 17:40 Polyethylene Glycol (Miralax) 17 gm DAILYPRN PRN ORAL Constipation 07/04/17 14:45 08/03/17 14:44 Sodium Chloride (0.45% NS 1000ml) 1,000 ml @ 50 mls/hr Q20H IV 07/04/17 17:00 08/03/17 16:59 07/06/17 15:09 Timolol Maleate (Timoptic 0.5% Op Soln) 1 drop TWICE A DAY BOTH EYES 07/05/17 13:30 08/04/17 13:29 07/06/17 17:40 Tobramycin/ Dexamethasone (Tobradex Opth Susp) 1 drop TID BOTH EYES 07/05/17 13:30 08/04/17 13:29 07/06/17 17:40 Vancomycin HCl (Rx Monitoring Vancomycin) 1 ea DAILY PRN MISC PRN RX PROTOCOL 07/04/17 16:45 08/03/17 16:44 Vancomycin HCl/ Dextrose (Vancomycin/D5W) 275 ml @ 183.3 mls/ hr Q24H IVPB 07/04/17 17:00 07/09/17 16:59 07/06/17 17:40 PRASAD MCGINNIS Jul 07, 2017 09:24
[2017-07-07] MEDS: Tobradex Opth Susp 2.5ml BOTH EYES SCH ×3 (09:31→17:24)
[2017-07-07] MEDS: OPTH BOTH EYES SCH ×2 (09:32→17:24)
[2017-07-07] MEDS: Timolol 0.5% Op Soln 2.5ml BOTH EYES SCH ×2 (09:32→17:24)
[2017-07-07] MEDS: AZOPT 1% BOTH EYES SCH ×2 (09:32→17:24)
[2017-07-07] MEDS: Heparin 5000 units/ml inj SUBQ SCH ×2 (09:36→20:27)
[2017-07-07 12:04] VITALS: BP 143/76
--- NOTE | 2017-07-07 13:04 | General Progress Note ---
Assessment/Plan Assessment/Plan 1. Granulocytosis concerning for leukemia such as chronic lymphocytic leukemia versus chronic neutrophilic leukemia. We will send for peripheral flow cytometry. --> currently pending 2. Leukocytosis, rule out underlying infection. 3. Anemia, secondary to chronic disease, rule out bleed. Anemia workup ordered. --> ob pending --> work up reviewed, no evidence of iron or b12 deficiency 4. Right lower lobe infiltrate pneumonia, on antibiotics. 5. Sepsis, on antibiotics. 6. Lymphoma history, non-Hodgkin's. Evaluate currently with a peripheral smear for recurrence of worsening case scenario. Subjective Date patient seen: Jul 06, 2017 Constitutional: Reports: no symptoms HEENT: Reports: no symptoms Cardiovascular: Reports: no symptoms Respiratory: Reports: no symptoms Gastrointestinal/Abdominal: Reports: no symptoms Genitourinary: Reports: no symptoms Neurologic/Psychiatric: Reports: no symptoms Endocrine: Reports: no symptoms Hematologic/Lymphatic: Reports: anemia Allergies: Coded Allergies: DEMECLOCYCLINE (Verified Allergy, Unknown, 12/29/10) Subjective NAD Objective Last 24 Hour Vital Signs Date Time Temp Pulse Resp B/P Pulse Ox O2 Delivery O2 Flow Rate FiO2 07/07/17 12:04 97.9 84 19 143/76 98 Nasal Cannula 2.0 07/07/17 08:34 97.7 87 19 149/72 97 Nasal Cannula 2.0 07/07/17 04:00 97.7 80 20 142/66 98 Nasal Cannula 3.0 07/07/17 00:00 97.7 78 18 120/56 97 Nasal Cannula 2.0 07/06/17 21:54 97.7 07/06/17 20:00 99.9 84 19 139/63 98 Room Air 07/06/17 15:54 97.0 77 18 130/60 100 Nasal Cannula 2.0 Intake and Output 07/06/17 07/07/17 19:00 07:00 Intake Total 1253.3 ml 660 ml Output Total 400 ml Balance 853.3 ml 660 ml Intake Oral 570 ml IV Total 683.3 ml 660 ml Output Urine Total 400 ml # Voids 2 6 Height (Feet): 5 Height (Inches): 4.00 Weight (Pounds): 130 General Appearance: no apparent distress EENT: PERRL/EOMI Neck: normal alignment Cardiovascular: normal rate Edema: no edema noted Pedal (L), no edema noted Pedal (R) Neurologic: normal mood/affect Adrián Barrios Jul 07, 2017 13:03
--- NOTE | 2017-07-07 13:27 | Pulmonology Progress Note ---
Assessment/Plan Problems: (1) Sepsis (2) Pneumonia (3) Hx of lymphoma, non-Hodgkins Assessment/Plan hematology f/u check sputum pt/ot awaiting ENT evaluation check cultures continue abx check blood smear Subjective ROS Limited/Unobtainable: No Constitutional: Reports: no symptoms HEENT: Repors: no symptoms Respiratory: Reports: no symptoms Allergies: Coded Allergies: DEMECLOCYCLINE (Verified Allergy, Unknown, 12/29/10) Objective Last 24 Hour Vital Signs Date Time Temp Pulse Resp B/P Pulse Ox O2 Delivery O2 Flow Rate FiO2 07/07/17 12:04 97.9 84 19 143/76 98 Nasal Cannula 2.0 07/07/17 08:34 97.7 87 19 149/72 97 Nasal Cannula 2.0 07/07/17 04:00 97.7 80 20 142/66 98 Nasal Cannula 3.0 07/07/17 00:00 97.7 78 18 120/56 97 Nasal Cannula 2.0 07/06/17 21:54 97.7 07/06/17 20:00 99.9 84 19 139/63 98 Room Air 07/06/17 15:54 97.0 77 18 130/60 100 Nasal Cannula 2.0 Intake and Output 07/06/17 07/07/17 19:00 07:00 Intake Total 1253.3 ml 660 ml Output Total 400 ml Balance 853.3 ml 660 ml Intake Oral 570 ml IV Total 683.3 ml 660 ml Output Urine Total 400 ml # Voids 2 6 Objective General Appearance: WD/WN HEENT: normocephalic, atraumatic Respiratory/Chest: chest wall non-tender, lungs clear Breasts: no masses Cardiovascular: normal peripheral pulses, normal rate Abdomen: normal bowel sounds, soft, non tender Genitourinary: normal external genitalia Extremities: no cyanosis Skin: no rash 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, 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 mood/affect Lymphatic: no groin adenopathy Microbiology Date/Time Source Procedure Growth Status 07/05/17 23:00 Sputum Gram Stain - Final Resulted 07/05/17 23:00 Sputum Sputum Culture - Preliminary NORMAL UPPER RESPIRATORY SUYAPA PRESENT Resulted Current Medications Medications (Trade) Dose Ordered Sig/Art Route PRN Reason Start Time Stop Time Status Last Admin Dose Admin Acetaminophen (Tylenol) 650 mg Q4H PRN ORAL FEVER 07/04/17 14:45 08/03/17 14:44 07/06/17 20:55 Albuterol/ Ipratropium (DuoNeb 0.5-3(2.5)mg/3ml) 3 ml Q4H PRN HHN Shortness of Breath 07/04/17 14:45 07/09/17 14:44 Cefepime HCl/ Dextrose (Maxipime/D5W) 110 ml @ 220 mls/hr Q24HRS IV 07/05/17 20:00 07/12/17 19:59 07/06/17 20:49 Dextrose (Dextrose 50%) STAT PRN IV Hypoglycemia 07/04/17 14:45 08/03/17 14:44 Heparin Sodium (Porcine) (Heparin 5000 units/ml) 5,000 units EVERY 12 HOURS SUBQ 07/04/17 21:00 08/03/17 20:59 07/07/17 09:36 Lorazepam (Ativan 2mg/ml 1ml) 2 mg Q2H PRN IV For Anxiety 07/04/17 14:45 07/11/17 14:44 Morphine Sulfate (Morphine Sulfate) 4 mg Q4H PRN IVP Severe Pain (Pain Scale 7-10) 07/04/17 14:45 07/11/17 14:44 07/07/17 05:25 Ondansetron HCl (Zofran) 4 mg Q6H PRN IVP Nausea & Vomiting 07/04/17 14:45 08/03/17 14:44 Patient Own Medication 1 ea 1 ea BID BOTH EYES 07/05/17 18:00 08/04/17 17:59 07/07/17 09:32 Polyethylene Glycol (Miralax) 17 gm DAILYPRN PRN ORAL Constipation 07/04/17 14:45 08/03/17 14:44 Sodium Chloride (0.45% NS 1000ml) 1,000 ml @ 50 mls/hr Q20H IV 07/04/17 17:00 08/03/17 16:59 07/07/17 13:13 Timolol Maleate (Timoptic 0.5% Op Soln) 1 drop TWICE A DAY BOTH EYES 07/05/17 13:30 08/04/17 13:29 07/07/17 09:32 Tobramycin/ Dexamethasone (Tobradex Opth Susp) 1 drop TID BOTH EYES 07/05/17 13:30 08/04/17 13:29 07/07/17 13:07 ADALGISA CHINCHILLA Jul 07, 2017 13:27
[2017-07-07 16:00] VITALS: BP 143/65
--- NOTE | 2017-07-07 16:05 | General Progress Note ---
Assessment/Plan Assessment/Plan 1. Granulocytosis concerning for leukemia such as chronic lymphocytic leukemia versus chronic neutrophilic leukemia. We will send for peripheral flow cytometry. --> currently pending --> will follow up with Dr. Zaheer Aquino, her oncologist 2. Leukocytosis, rule out underlying infection. 3. Anemia, secondary to chronic disease, rule out bleed. Anemia workup ordered. --> ob pending --> work up reviewed, no evidence of iron or b12 deficiency 4. Right lower lobe infiltrate pneumonia, on antibiotics. 5. Sepsis, on antibiotics. 6. Lymphoma history, non-Hodgkin's. Evaluate currently with a peripheral smear for recurrence of worsening case scenario. Subjective Constitutional: Reports: no symptoms HEENT: Reports: no symptoms Cardiovascular: Reports: no symptoms Respiratory: Reports: no symptoms Gastrointestinal/Abdominal: Reports: no symptoms Genitourinary: Reports: no symptoms Neurologic/Psychiatric: Reports: no symptoms Endocrine: Reports: no symptoms Hematologic/Lymphatic: Reports: anemia Allergies: Coded Allergies: DEMECLOCYCLINE (Verified Allergy, Unknown, 12/29/10) Subjective appears comfortable Objective Last 24 Hour Vital Signs Date Time Temp Pulse Resp B/P Pulse Ox O2 Delivery O2 Flow Rate FiO2 07/07/17 12:04 97.9 84 19 143/76 98 Nasal Cannula 2.0 07/07/17 08:34 97.7 87 19 149/72 97 Nasal Cannula 2.0 07/07/17 04:00 97.7 80 20 142/66 98 Nasal Cannula 3.0 07/07/17 00:00 97.7 78 18 120/56 97 Nasal Cannula 2.0 07/06/17 21:54 97.7 07/06/17 20:00 99.9 84 19 139/63 98 Room Air Intake and Output 07/06/17 07/07/17 19:00 07:00 Intake Total 1253.3 ml 660 ml Output Total 400 ml Balance 853.3 ml 660 ml Intake Oral 570 ml IV Total 683.3 ml 660 ml Output Urine Total 400 ml # Voids 2 6 Height (Feet): 5 Height (Inches): 4.00 Weight (Pounds): 130 General Appearance: no apparent distress Neck: normal inspection Abdomen: non tender Edema: no edema noted Pedal (L), no edema noted Pedal (R) Neurologic: sensory deficit Skin: warm/dry GianlucaynAdrián rockwell 13, 2017 16:05
[2017-07-07] MEDS ORDERED: 1/2 NS 1000ml IV ONE (17:18)
--- NOTE | 2017-07-07 17:59 | Cardiology Report ---
APPROVED REPORT EKG Measurement Heart [id number] [place] 122P67 [id number] Normal sinus rhythm Left axis deviation Minimal voltage criteria for LVH, may be normal variant Abnormal ECG
[2017-07-07 20:00] VITALS: BP 142/68
[2017-07-07] MEDS: Cefepime 2gm/D5W 110ml IV SCH ×2 (20:25)
[2017-07-08] VITALS: BP 132/62
[2017-07-08 04:00] VITALS: BP 138/68
[2017-07-08 06:51] LABS: PROTHROMBIN TIME 10.8 SEC (9.30-11.50)
[2017-07-08 07:05] LABS: MEAN CORPUSCULAR HEMOGLOBIN 32.1 PG (27.0-31.0); MEAN CORPUSCULAR HGB CONC 34.7 G/DL (32.0-36.0); MEAN CORPUSCULAR VOLUME 93 FL (80-99); PLATELET COUNT 215 K/UL (150-450); RED BLOOD COUNT 3.35 M/UL (4.20-5.40); RED CELL DISTRIBUTION WIDTH 11.7 % (11.6-14.8)
[2017-07-08 07:17] LABS: ALANINE AMINOTRANSFERASE 21 U/L (3-33); ALBUMIN/GLOBULIN RATIO 0.9 (1.0-2.7); ANION GAP 9 (5-15); ASPARTATE AMINO TRANSFERASE 21 U/L (5-40); CALCIUM 8.6 mg/dL (8.6-10.2); CARBON DIOXIDE 25 mEQ/L (20-30); CHLORIDE 104 mEQ/L (98-107); CREATININE 0.6 mg/dL (0.5-0.9); HEMOLYSIS 7; MAGNESIUM 1.9 mg/dL (1.7-2.5); PHOSPHORUS 3.5 mg/dL (2.5-4.8); POTASSIUM 3.2 mEQ/L (3.4-4.9); SODIUM 138 mEQ/L (135-145); TOTAL PROTEIN 4.9 g/dL (6.6-8.7)
[2017-07-08 07:33] LABS: WHITE BLOOD COUNT 24.4 K/UL (4.8-10.8)
[2017-07-08 08:15] VITALS: BP 140/65
--- NOTE | 2017-07-08 09:00 | Consultation ---
DATE OF CONSULTATION: 07/08/2017 HEAD AND NECK SURGERY/ENT CONSULT CONSULTING PHYSICIAN: Sanket Galan M.D. REQUESTING PHYSICIAN: Rosalie Pal M.D. INDICATION FOR CONSULTATION: This is an 87-year-old female, who was admitted with sepsis appears to be pneumonia and some sinusitis with hearing loss. She has chronic hearing loss, wears bilateral Phonak hearing aids. ALLERGIES: She is allergic to demeclocycline. MEDICATIONS: Medications include Maxipime, vancomycin, Tylenol, heparin, DuoNeb, lorazepam, morphine, Zofran, MiraLAX, tobramycin, and dexamethasone. LABORATORY DATA: Her cultures are negative from the nose and blood as of 07/05/2017. Her white count is coming down on 07/04/2017 was 39, this morning it is 24.4, although does have a shift. PHYSICAL EXAMINATION: VITAL SIGNS: Height 162.56, weight 58.967, and BMI 22.3. HEENT: Head: Normocephalic. Eyes: Pupils are equal, round, and reactive to light and EOMI. Sinuses nontender. Nose normal. Ears positive light reflex. No cerumen. TMs looks good in her ears. She does have a Phonak aids next to her, but not wearing them at the moment. NECK: No palpable masses. ASSESSMENT: Not sure if she has sinusitis or it has been treated and is no longer bothering her. Hearing loss appears to be chronic. As she already has hearing aids for both ears. Other issues are pneumonia and sepsis. Continue present care. PLAN: When discharged she should followup and getting her hearing aids adjusted if they are not working well for her. Thank you very much for asking my opinion in the care and treatment of this patient. Sanket Galan M.D. DR: ZANE JOB#: [id number] CC: CINDY
[2017-07-08 09:31] LABS: BAND NEUTROPHILS % (MANUAL) 7 % (0-8); BASOPHILS % (MANUAL) 1 % (0-2); EOSINOPHILS % (MANUAL) 1 % (0-3); HYPOCHROMASIA 1+; LYMPHOCYTES % (MANUAL) 9 % (20-45); MYELOCYTES % 2 % (0-0); NEUTROPHILS % (MANUAL) 63 % (45-75); PLATELET ESTIMATE ADEQUATE; PLATELET MORPHOLOGY NORMAL; TOTAL CELLS COUNTED 100
[2017-07-08] MEDS ORDERED: 1/2 NS 1000ml IV ONE (09:45)
[2017-07-08] MEDS ORDERED: NS 275ml ONE (09:46)
[2017-07-08] MEDS ORDERED: Tubing IV Secondary IV ONE (09:46)
[2017-07-08] MEDS: Tobradex Opth Susp 2.5ml BOTH EYES SCH ×3 (09:58→18:17)
[2017-07-08] MEDS: Timolol 0.5% Op Soln 2.5ml BOTH EYES SCH ×2 (09:58→18:16)
[2017-07-08] MEDS: OPTH BOTH EYES SCH ×2 (09:59→18:16)
[2017-07-08] MEDS: AZOPT 1% BOTH EYES SCH ×2 (09:59→18:16)
[2017-07-08] MEDS: Heparin 5000 units/ml inj SUBQ SCH ×2 (10:01→20:35)
--- NOTE | 2017-07-08 10:03 | Infectious Diseases Prog Note ---
Assessment/Plan Assessment/Plan A; Pneumonia Pansinusitis NHL in remission Conjunctivitis Left Knee guerrero's cyst P; Continue Cefepime if diarrhea persists check for C. difficile Subjective ROS Limited/Unobtainable: No Respiratory: Reports: dry cough Gastrointestinal/Abdominal: Reports: bloating, diarrhea, other - last night Allergies: Coded Allergies: DEMECLOCYCLINE (Verified Allergy, Unknown, 12/29/10) Objective Vital Signs Last 24 Hour Vital Signs Date Time Temp Pulse Resp B/P Pulse Ox O2 Delivery O2 Flow Rate FiO2 07/08/17 08:15 97.1 77 19 140/65 96 Nasal Cannula 2.0 07/08/17 04:00 97.3 75 18 138/68 97 Nasal Cannula 07/08/17 00:00 97.7 79 18 132/62 98 Nasal Cannula 2.0 07/07/17 20:00 98.8 90 18 142/68 Nasal Cannula 2.0 07/07/17 19:43 Nasal Cannula 2.0 28 07/07/17 19:43 97 2.0 28 07/07/17 18:23 97.3 07/07/17 16:00 97.3 89 20 143/65 97 Nasal Cannula 3.0 07/07/17 12:04 97.9 84 19 143/76 98 Nasal Cannula 2.0 Height (Feet): 5 Height (Inches): 4.00 Weight (Pounds): 130 General Appearance: no acute distress HEENT: mucous membranes moist Respiratory/Chest: lungs clear Cardiovascular: normal rate Abdomen: soft, non tender Extremities: no edema Neurologic/Psychiatric: alert, oriented x 3, responsive Microbiology Date/Time Source Procedure Growth Status 07/05/17 23:00 Sputum Gram Stain - Final Complete 07/05/17 23:00 Sputum Sputum Culture - Final NORMAL UPPER RESPIRATORY SUYAPA AT 48 ... Complete Laboratory Tests Test 07/07/17 21:30 07/08/17 04:35 Stool Occult Blood Negative (NEGATIVE) White Blood Count 24.4 K/UL (4.8-10.8) *H Red Blood Count 3.35 M/UL (4.20-5.40) L Hemoglobin 10.8 G/DL (12.0-16.0) L Hematocrit 31.0 % (37.0-47.0) L Mean Corpuscular Volume 93 FL (80-99) Mean Corpuscular Hemoglobin 32.1 PG (27.0-31.0) H Mean Corpuscular Hemoglobin Concent 34.7 G/DL (32.0-36.0) Red Cell Distribution Width 11.7 % (11.6-14.8) Platelet Count 215 K/UL (150-450) Mean Platelet Volume 9.0 FL (6.5-10.1) Neutrophils (%) (Auto) % (45.0-75.0) Lymphocytes (%) (Auto) % (20.0-45.0) Monocytes (%) (Auto) % (1.0-10.0) Eosinophils (%) (Auto) % (0.0-3.0) Basophils (%) (Auto) % (0.0-2.0) Differential Total Cells Counted 100 Neutrophils % (Manual) 63 % (45-75) Lymphocytes % (Manual) 9 % (20-45) L Monocytes % (Manual) 17 % (1-10) H Eosinophils % (Manual) 1 % (0-3) Basophils % (Manual) 1 % (0-2) Myelocytes % 2 % (0-0) H Band Neutrophils 7 % (0-8) Platelet Estimate Adequate Platelet Morphology Normal Hypochromasia 1+ Prothrombin Time 10.8 SEC (9.30-11.50) Prothromb Time International Ratio 1.0 (0.9-1.1) Activated Partial Thromboplast Time 37 SEC (23-33) H Sodium Level 138 mEQ/L (135-145) Potassium Level 3.2 mEQ/L (3.4-4.9) L Chloride Level 104 mEQ/L (98-107) Carbon Dioxide Level 25 mEQ/L (20-30) Anion Gap 9 (5-15) Blood Urea Nitrogen 6 mg/dL (7-23) L Creatinine 0.6 mg/dL (0.5-0.9) Estimat Glomerular Filtration Rate mL/min (>60) Glucose Level 112 mg/dL (74-106) H Calcium Level 8.6 mg/dL (8.6-10.2) Phosphorus Level 3.5 mg/dL (2.5-4.8) Magnesium Level 1.9 mg/dL (1.7-2.5) Total Bilirubin 0.7 mg/dL (0.0-1.2) Aspartate Amino Transf (AST/SGOT) 21 U/L (5-40) Alanine Aminotransferase (ALT/SGPT) 21 U/L (3-33) Alkaline Phosphatase 156 U/L (35-104) H Total Protein 4.9 g/dL (6.6-8.7) L Albumin 2.4 g/dL (3.5-5.2) L Globulin 2.5 g/dL Albumin/Globulin Ratio 0.9 (1.0-2.7) L Current Medications Medications (Trade) Dose Ordered Sig/Art Route PRN Reason Start Time Stop Time Status Last Admin Dose Admin Acetaminophen (Tylenol) 650 mg Q4H PRN ORAL Mild Pain/Temp > 100.5 07/07/17 17:00 08/06/17 16:59 07/07/17 17:24 Albuterol/ Ipratropium (DuoNeb 0.5-3(2.5)mg/3ml) 3 ml Q4H PRN HHN Shortness of Breath 07/04/17 14:45 07/09/17 14:44 Cefepime HCl/ Dextrose (Maxipime/D5W) 110 ml @ 220 mls/hr Q24HRS IV 07/05/17 20:00 07/12/17 19:59 07/07/17 20:25 Dextrose (Dextrose 50%) STAT PRN IV Hypoglycemia 07/04/17 14:45 08/03/17 14:44 Heparin Sodium (Porcine) (Heparin 5000 units/ml) 5,000 units EVERY 12 HOURS SUBQ 07/04/17 21:00 08/03/17 20:59 07/07/17 20:27 Lorazepam (Ativan 2mg/ml 1ml) 2 mg Q2H PRN IV For Anxiety 07/04/17 14:45 07/11/17 14:44 Morphine Sulfate (Morphine Sulfate) 4 mg Q4H PRN IVP Severe Pain (Pain Scale 7-10) 07/04/17 14:45 07/11/17 14:44 07/07/17 05:25 Ondansetron HCl (Zofran) 4 mg Q6H PRN IVP Nausea & Vomiting 07/04/17 14:45 08/03/17 14:44 Patient Own Medication 1 ea 1 ea BID BOTH EYES 07/05/17 18:00 08/04/17 17:59 07/07/17 17:24 Polyethylene Glycol (Miralax) 17 gm DAILYPRN PRN ORAL Constipation 07/04/17 14:45 08/03/17 14:44 Sodium Chloride (0.45% NS 1000ml) 1,000 ml @ 50 mls/hr Q20H IV 07/04/17 17:00 08/03/17 16:59 07/07/17 13:13 Timolol Maleate (Timoptic 0.5% Op Soln) 1 drop TWICE A DAY BOTH EYES 07/05/17 13:30 08/04/17 13:29 07/07/17 17:24 Tobramycin/ Dexamethasone (Tobradex Opth Susp) 1 drop TID BOTH EYES 07/05/17 13:30 08/04/17 13:29 07/07/17 17:24 PRASAD MCGINNIS Jul 08, 2017 10:03
[2017-07-08 12:15] VITALS: BP 145/68
--- NOTE | 2017-07-08 12:23 | Diagnostic Imaging Report ---
APPROVED REPORT CPT Code: 14139 Present Symptoms Shortness of breath Comments: Lt ankle sprain. Hx left hip fracture 2010. BILATERAL: Imaging reveals a patent deep venous system bilaterally. There is no evidence of thrombus within the femoral, popliteal or tibial segments. The greater saphenous veins are also within normal limits. Doppler indicates normal spontaneous flow within these segments. Incidental finding: Avina's cyst in left popliteal fossa measuring 3.5 cm x 2.0 cm x 1.3 cm.
--- NOTE | 2017-07-08 15:07 | Pulmonology Progress Note ---
Assessment/Plan Problems: (1) Sepsis (2) Pneumonia (3) Hx of lymphoma, non-Hodgkins Assessment/Plan blood smear, and cytology pending hematology f/u check sputum pt/ot awaiting ENT evaluation check cultures continue abx all cultures negative ENT consult appreciated and reviewed. Subjective ROS Limited/Unobtainable: No Constitutional: Reports: no symptoms HEENT: Repors: no symptoms Respiratory: Reports: no symptoms Allergies: Coded Allergies: DEMECLOCYCLINE (Verified Allergy, Unknown, 12/29/10) Objective Last 24 Hour Vital Signs Date Time Temp Pulse Resp B/P Pulse Ox O2 Delivery O2 Flow Rate FiO2 07/08/17 12:15 97.7 78 21 145/68 98 Nasal Cannula 2.0 07/08/17 08:15 97.1 77 19 140/65 96 Nasal Cannula 2.0 07/08/17 04:00 97.3 75 18 138/68 97 Nasal Cannula 07/08/17 00:00 97.7 79 18 132/62 98 Nasal Cannula 2.0 07/07/17 20:00 98.8 90 18 142/68 Nasal Cannula 2.0 07/07/17 19:43 Nasal Cannula 2.0 28 07/07/17 19:43 97 2.0 28 07/07/17 18:23 97.3 07/07/17 16:00 97.3 89 20 143/65 97 Nasal Cannula 3.0 Intake and Output 07/07/17 07/08/17 19:00 07:00 Intake Total 1000 ml 550 ml Output Total 220 ml Balance 780 ml 550 ml Intake Oral 600 ml IV Total 400 ml 550 ml Output Urine Total 220 ml # Voids 3 3 # Bowel Movements 1 Objective General Appearance: WD/WN HEENT: normocephalic, atraumatic Respiratory/Chest: chest wall non-tender, lungs clear Breasts: no masses Cardiovascular: normal peripheral pulses, normal rate Abdomen: normal bowel sounds, soft, non tender Genitourinary: normal external genitalia Extremities: no cyanosis Skin: no rash Neurologic/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 Complete Laboratory Tests 07/07/17 21:30: Stool Occult Blood Negative 07/08/17 04:35: White Blood Count 24.4*H, Red Blood Count 3.35L, Hemoglobin 10.8L, Hematocrit 31.0L, Mean Corpuscular Volume 93, Mean Corpuscular Hemoglobin 32.1H, Mean Corpuscular Hemoglobin Concent 34.7, Red Cell Distribution Width 11.7, Platelet Count 215, Mean Platelet Volume 9.0, Neutrophils (%) (Auto) , Lymphocytes (%) ( Auto) , Monocytes (%) (Auto) , Eosinophils (%) (Auto) , Basophils (%) (Auto) , Differential Total Cells Counted 100, Neutrophils % (Manual) 63, Lymphocytes % ( Manual) 9L, Monocytes % (Manual) 17H, Eosinophils % (Manual) 1, Basophils % ( Manual) 1, Myelocytes % 2H, Band Neutrophils 7, Platelet Estimate Adequate, Platelet Morphology Normal, Hypochromasia 1+, Prothrombin Time 10.8, Prothromb Time International Ratio 1.0, Activated Partial Thromboplast Time 37H, Sodium Level 138, Potassium Level 3.2L, Chloride Level 104, Carbon Dioxide Level 25, Anion Gap 9, Blood Urea Nitrogen 6L, Creatinine 0.6, Estimat Glomerular Filtration Rate , Glucose Level 112H, Calcium Level 8.6, Phosphorus Level 3.5, Magnesium Level 1.9, Total Bilirubin 0.7, Aspartate Amino Transf (AST/SGOT) 21, Alanine Aminotransferase (ALT/SGPT) 21, Alkaline Phosphatase 156H, Total Protein 4.9L, Albumin 2.4L, Globulin 2.5, Albumin/Globulin Ratio 0.9L Current Medications Medications (Trade) Dose Ordered Sig/Art Route PRN Reason Start Time Stop Time Status Last Admin Dose Admin Acetaminophen (Tylenol) 650 mg Q4H PRN ORAL Mild Pain/Temp > 100.5 07/07/17 17:00 08/06/17 16:59 07/07/17 17:24 Albuterol/ Ipratropium (DuoNeb 0.5-3(2.5)mg/3ml) 3 ml Q4H PRN HHN Shortness of Breath 07/04/17 14:45 07/09/17 14:44 Cefepime HCl/ Dextrose (Maxipime/D5W) 110 ml @ 220 mls/hr Q24HRS IV 07/05/17 20:00 07/12/17 19:59 07/07/17 20:25 Dextrose (Dextrose 50%) STAT PRN IV Hypoglycemia 07/04/17 14:45 08/03/17 14:44 Heparin Sodium (Porcine) (Heparin 5000 units/ml) 5,000 units EVERY 12 HOURS SUBQ 07/04/17 21:00 08/03/17 20:59 07/08/17 10:01 Lorazepam (Ativan 2mg/ml 1ml) 2 mg Q2H PRN IV For Anxiety 07/04/17 14:45 07/11/17 14:44 Morphine Sulfate (Morphine Sulfate) 4 mg Q4H PRN IVP Severe Pain (Pain Scale 7-10) 07/04/17 14:45 07/11/17 14:44 07/07/17 05:25 Ondansetron HCl (Zofran) 4 mg Q6H PRN IVP Nausea & Vomiting 07/04/17 14:45 08/03/17 14:44 Patient Own Medication 1 ea 1 ea BID BOTH EYES 07/05/17 18:00 08/04/17 17:59 07/08/17 09:59 Polyethylene Glycol (Miralax) 17 gm DAILYPRN PRN ORAL Constipation 07/04/17 14:45 08/03/17 14:44 Sodium Chloride (0.45% NS 1000ml) 1,000 ml @ 50 mls/hr Q20H IV 07/04/17 17:00 08/03/17 16:59 07/08/17 09:58 Timolol Maleate (Timoptic 0.5% Op Soln) 1 drop TWICE A DAY BOTH EYES 07/05/17 13:30 08/04/17 13:29 07/08/17 09:58 Tobramycin/ Dexamethasone (Tobradex Opth Susp) 1 drop TID BOTH EYES 07/05/17 13:30 08/04/17 13:29 07/08/17 13:48 ADALGISA CHINCHILLA Jul 08, 2017 15:07
[2017-07-08 15:48] VITALS: BP 147/67
[2017-07-08 20:00] VITALS: BP 136/63
[2017-07-08] MEDS: Cefepime 2gm/D5W 110ml IV SCH ×2 (20:30)
--- NOTE | 2017-07-08 20:46 | General Progress Note ---
Assessment/Plan Assessment/Plan 1. Granulocytosis concerning for leukemia such as chronic lymphocytic leukemia versus chronic neutrophilic leukemia. We will send for peripheral flow cytometry. --> currently pending --> will follow up with Dr. Zaheer Aquino, her oncologist 2. Leukocytosis 3. Anemia, secondary to chronic disease, rule out bleed. Anemia workup ordered. --> ob is negative --> work up reviewed, no evidence of iron or b12 deficiency 4. Right lower lobe infiltrate pneumonia, on antibiotics. 5. Lymphoma history, non-Hodgkin's. Evaluate currently with a peripheral smear for recurrence of worsening case scenario. Subjective Constitutional: Reports: no symptoms HEENT: Reports: no symptoms Cardiovascular: Reports: no symptoms Respiratory: Reports: no symptoms Gastrointestinal/Abdominal: Reports: no symptoms Genitourinary: Reports: no symptoms Neurologic/Psychiatric: Reports: no symptoms Endocrine: Reports: no symptoms Hematologic/Lymphatic: Reports: anemia Allergies: Coded Allergies: DEMECLOCYCLINE (Verified Allergy, Unknown, 12/29/10) Subjective calm, in bed, resting Objective Last 24 Hour Vital Signs Date Time Temp Pulse Resp B/P Pulse Ox O2 Delivery O2 Flow Rate FiO2 07/08/17 19:57 Nasal Cannula 2.0 28 07/08/17 19:57 96 2.0 28 07/08/17 15:48 97.3 84 20 147/67 96 Nasal Cannula 2.0 07/08/17 12:15 97.7 78 21 145/68 98 Nasal Cannula 2.0 07/08/17 08:15 97.1 77 19 140/65 96 Nasal Cannula 2.0 07/08/17 04:00 97.3 75 18 138/68 97 Nasal Cannula 07/08/17 00:00 97.7 79 18 132/62 98 Nasal Cannula 2.0 Intake and Output 07/07/17 07/08/17 19:00 07:00 Intake Total 1000 ml 550 ml Output Total 220 ml Balance 780 ml 550 ml Intake Oral 600 ml IV Total 400 ml 550 ml Output Urine Total 220 ml # Voids 3 3 # Bowel Movements 1 Laboratory Tests 07/07/17 21:30: Stool Occult Blood Negative 07/08/17 04:35: White Blood Count 24.4*H, Red Blood Count 3.35L, Hemoglobin 10.8L, Hematocrit 31.0L, Mean Corpuscular Volume 93, Mean Corpuscular Hemoglobin 32.1H, Mean Corpuscular Hemoglobin Concent 34.7, Red Cell Distribution Width 11.7, Platelet Count 215, Mean Platelet Volume 9.0, Neutrophils (%) (Auto) , Lymphocytes (%) ( Auto) , Monocytes (%) (Auto) , Eosinophils (%) (Auto) , Basophils (%) (Auto) , Differential Total Cells Counted 100, Neutrophils % (Manual) 63, Lymphocytes % ( Manual) 9L, Monocytes % (Manual) 17H, Eosinophils % (Manual) 1, Basophils % ( Manual) 1, Myelocytes % 2H, Band Neutrophils 7, Platelet Estimate Adequate, Platelet Morphology Normal, Hypochromasia 1+, Prothrombin Time 10.8, Prothromb Time International Ratio 1.0, Activated Partial Thromboplast Time 37H, Sodium Level 138, Potassium Level 3.2L, Chloride Level 104, Carbon Dioxide Level 25, Anion Gap 9, Blood Urea Nitrogen 6L, Creatinine 0.6, Estimat Glomerular Filtration Rate , Glucose Level 112H, Calcium Level 8.6, Phosphorus Level 3.5, Magnesium Level 1.9, Total Bilirubin 0.7, Aspartate Amino Transf (AST/SGOT) 21, Alanine Aminotransferase (ALT/SGPT) 21, Alkaline Phosphatase 156H, Total Protein 4.9L, Albumin 2.4L, Globulin 2.5, Albumin/Globulin Ratio 0.9L Height (Feet): 5 Height (Inches): 4.00 Weight (Pounds): 130 General Appearance: no apparent distress EENT: TMs normal Neck: normal alignment Edema: no edema noted Pedal (L), no edema noted Pedal (R) Neurologic: no motor/sensory deficits Skin: warm/dry Adrián Barrios Jul 08, 2017 20:46
[2017-07-09] VITALS: BP 142/66
[2017-07-09 04:00] VITALS: BP 139/66
[2017-07-09 06:20] LABS: MEAN CORPUSCULAR HEMOGLOBIN 31.2 PG (27.0-31.0); MEAN CORPUSCULAR HGB CONC 33.5 G/DL (32.0-36.0); MEAN CORPUSCULAR VOLUME 93 FL (80-99); MEAN PLATELET VOLUME 8.2 FL (6.5-10.1); PLATELET COUNT 242 K/UL (150-450); RED BLOOD COUNT 3.67 M/UL (4.20-5.40)
[2017-07-09 06:37] LABS: WHITE BLOOD COUNT 23.5 K/UL (4.8-10.8)
[2017-07-09 07:58] LABS: BAND NEUTROPHILS % (MANUAL) 7 % (0-8); BASOPHILS % (MANUAL) 0 % (0-2); EOSINOPHILS % (MANUAL) 1 % (0-3); HYPOCHROMASIA 1+; LYMPHOCYTES % (MANUAL) 7 % (20-45); MYELOCYTES % 4 % (0-0); NEUTROPHILS % (MANUAL) 65 % (45-75); PLATELET ESTIMATE ADEQUATE; PLATELET MORPHOLOGY NORMAL; TOTAL CELLS COUNTED 100
[2017-07-09] MEDS: Timolol 0.5% Op Soln 2.5ml BOTH EYES SCH ×2 (08:38→17:23)
[2017-07-09] MEDS: Heparin 5000 units/ml inj SUBQ SCH ×2 (08:38→20:40)
[2017-07-09] MEDS: OPTH BOTH EYES SCH ×2 (08:53→17:37)
[2017-07-09] MEDS: AZOPT 1% BOTH EYES SCH ×2 (08:53→17:37)
[2017-07-09 08:57] VITALS: BP 146/65
[2017-07-09] MEDS: Tobradex Opth Susp 2.5ml BOTH EYES SCH ×3 (09:19→17:53)
--- NOTE | 2017-07-09 09:27 | Diagnostic Imaging Report ---
Indication: PAIN Technique: 2 views of the left ankle Comparison: none Findings: Exam is somewhat limited due to lack of a mortise view. Bones are osteoporotic. No definite acute fractures. No dislocations. The joint spaces are preserved. Impression: Somewhat limited exam Osteoporosis No definite acute bony trauma
[2017-07-09 12:49] VITALS: BP 145/73
--- NOTE | 2017-07-09 14:23 | Infectious Diseases Prog Note ---
Assessment/Plan Assessment/Plan A; Pneumonia Pansinusitis NHL in remission Conjunctivitis Left Knee guerrero's cyst P; Continue Cefepime X 2 days check for C. difficile Subjective ROS Limited/Unobtainable: No Respiratory: Reports: dry cough Gastrointestinal/Abdominal: Reports: diarrhea, other - indigestion Genitourinary: Reports: no symptoms Neurologic: Reports: no symptoms Psychiatric: Reports: no symptoms Allergies: Coded Allergies: DEMECLOCYCLINE (Verified Allergy, Unknown, 12/29/10) Objective Vital Signs Last 24 Hour Vital Signs Date Time Temp Pulse Resp B/P Pulse Ox O2 Delivery O2 Flow Rate FiO2 07/09/17 12:49 97.7 74 20 145/73 97 Nasal Cannula 2.0 07/09/17 08:57 96.6 77 19 146/65 98 Nasal Cannula 2.0 07/09/17 04:00 97.3 72 20 139/66 98 Nasal Cannula 2.0 07/09/17 00:13 97.7 07/09/17 00:00 97.7 74 20 142/66 98 Nasal Cannula 2.0 07/08/17 20:00 97.7 76 20 136/63 96 Nasal Cannula 2.0 07/08/17 19:57 Nasal Cannula 2.0 28 07/08/17 19:57 96 2.0 28 07/08/17 15:48 97.3 84 20 147/67 96 Nasal Cannula 2.0 Height (Feet): 5 Height (Inches): 4.00 Weight (Pounds): 130 General Appearance: no acute distress HEENT: mucous membranes moist Respiratory/Chest: lungs clear Cardiovascular: normal rate Abdomen: soft, non tender Extremities: no edema Neurologic/Psychiatric: alert, oriented x 3, responsive Laboratory Tests Test 07/09/17 04:55 White Blood Count 23.5 K/UL (4.8-10.8) *H Red Blood Count 3.67 M/UL (4.20-5.40) L Hemoglobin 11.4 G/DL (12.0-16.0) L Hematocrit 34.1 % (37.0-47.0) L Mean Corpuscular Volume 93 FL (80-99) Mean Corpuscular Hemoglobin 31.2 PG (27.0-31.0) H Mean Corpuscular Hemoglobin Concent 33.5 G/DL (32.0-36.0) Red Cell Distribution Width 12.0 % (11.6-14.8) Platelet Count 242 K/UL (150-450) Mean Platelet Volume 8.2 FL (6.5-10.1) Neutrophils (%) (Auto) % (45.0-75.0) Lymphocytes (%) (Auto) % (20.0-45.0) Monocytes (%) (Auto) % (1.0-10.0) Eosinophils (%) (Auto) % (0.0-3.0) Basophils (%) (Auto) % (0.0-2.0) Differential Total Cells Counted 100 Neutrophils % (Manual) 65 % (45-75) Lymphocytes % (Manual) 7 % (20-45) L Monocytes % (Manual) 16 % (1-10) H Eosinophils % (Manual) 1 % (0-3) Basophils % (Manual) 0 % (0-2) Myelocytes % 4 % (0-0) H Band Neutrophils 7 % (0-8) Platelet Estimate Adequate Platelet Morphology Normal Hypochromasia 1+ Current Medications Medications (Trade) Dose Ordered Sig/Art Route PRN Reason Start Time Stop Time Status Last Admin Dose Admin Acetaminophen (Tylenol) 650 mg Q4H PRN ORAL Mild Pain/Temp > 100.5 07/07/17 17:00 08/06/17 16:59 07/08/17 23:14 Albuterol/ Ipratropium (DuoNeb 0.5-3(2.5)mg/3ml) 3 ml Q4H PRN HHN Shortness of Breath 07/04/17 14:45 07/09/17 14:44 Cefepime HCl/ Dextrose (Maxipime/D5W) 110 ml @ 220 mls/hr Q24HRS IV 07/05/17 20:00 07/12/17 19:59 07/08/17 20:30 Dextrose (Dextrose 50%) STAT PRN IV Hypoglycemia 07/04/17 14:45 08/03/17 14:44 Heparin Sodium (Porcine) (Heparin 5000 units/ml) 5,000 units EVERY 12 HOURS SUBQ 07/04/17 21:00 08/03/17 20:59 07/09/17 08:38 Lorazepam (Ativan 2mg/ml 1ml) 2 mg Q2H PRN IV For Anxiety 07/04/17 14:45 07/11/17 14:44 Morphine Sulfate (Morphine Sulfate) 4 mg Q4H PRN IVP Severe Pain (Pain Scale 7-10) 07/04/17 14:45 07/11/17 14:44 07/07/17 05:25 Ondansetron HCl (Zofran) 4 mg Q6H PRN IVP Nausea & Vomiting 07/04/17 14:45 08/03/17 14:44 Patient Own Medication 1 ea 1 ea BID BOTH EYES 07/05/17 18:00 08/04/17 17:59 07/09/17 08:53 Polyethylene Glycol (Miralax) 17 gm DAILYPRN PRN ORAL Constipation 07/04/17 14:45 08/03/17 14:44 Sodium Chloride (0.45% NS 1000ml) 1,000 ml @ 50 mls/hr Q20H IV 07/04/17 17:00 08/03/17 16:59 07/09/17 05:54 Timolol Maleate (Timoptic 0.5% Op Soln) 1 drop TWICE A DAY BOTH EYES 07/05/17 13:30 08/04/17 13:29 07/09/17 08:38 Tobramycin/ Dexamethasone (Tobradex Opth Susp) 1 drop TID BOTH EYES 07/05/17 13:30 08/04/17 13:29 07/09/17 12:58 PRASAD MCGINNIS Jul 09, 2017 14:23
[2017-07-09 16:00] VITALS: BP 149/59
--- NOTE | 2017-07-09 16:11 | Pulmonology Progress Note ---
Assessment/Plan Problems: (1) Sepsis (2) Pneumonia (3) Hx of lymphoma, non-Hodgkins Assessment/Plan blood smear, and cytology negative for any blasts hematology f/u check sputum pt/ot check cultures continue abx all cultures negative, guerrero for Cdiff wbc persistently high ENT consult appreciated and reviewed. Subjective ROS Limited/Unobtainable: No Interval Events: no new complains Allergies: Coded Allergies: DEMECLOCYCLINE (Verified Allergy, Unknown, 12/29/10) Objective Last 24 Hour Vital Signs Date Time Temp Pulse Resp B/P Pulse Ox O2 Delivery O2 Flow Rate FiO2 07/09/17 12:49 97.7 74 20 145/73 97 Nasal Cannula 2.0 07/09/17 08:57 96.6 77 19 146/65 98 Nasal Cannula 2.0 07/09/17 04:00 97.3 72 20 139/66 98 Nasal Cannula 2.0 07/09/17 00:13 97.7 07/09/17 00:00 97.7 74 20 142/66 98 Nasal Cannula 2.0 07/08/17 20:00 97.7 76 20 136/63 96 Nasal Cannula 2.0 07/08/17 19:57 Nasal Cannula 2.0 28 07/08/17 19:57 96 2.0 28 Intake and Output 07/08/17 07/09/17 19:00 07:00 Intake Total 1170 ml 680 ml Balance 1170 ml 680 ml Intake Oral 720 ml 120 ml IV Total 450 ml 560 ml # Voids 2 2 Objective General Appearance: WD/WN HEENT: normocephalic, atraumatic Respiratory/Chest: chest wall non-tender, lungs clear Breasts: no masses Cardiovascular: normal peripheral pulses, normal rate Abdomen: normal bowel sounds, soft, non tender Genitourinary: normal external genitalia Extremities: no cyanosis Skin: no rash 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, normal mood/affect Lymphatic: no groin adenopathy Laboratory Tests 07/09/17 04:55: White Blood Count 23.5*H, Red Blood Count 3.67L, Hemoglobin 11.4L, Hematocrit 34.1L, Mean Corpuscular Volume 93, Mean Corpuscular Hemoglobin 31.2H, Mean Corpuscular Hemoglobin Concent 33.5, Red Cell Distribution Width 12.0, Platelet Count 242, Mean Platelet Volume 8.2, Neutrophils (%) (Auto) , Lymphocytes (%) ( Auto) , Monocytes (%) (Auto) , Eosinophils (%) (Auto) , Basophils (%) (Auto) , Differential Total Cells Counted 100, Neutrophils % (Manual) 65, Lymphocytes % ( Manual) 7L, Monocytes % (Manual) 16H, Eosinophils % (Manual) 1, Basophils % ( Manual) 0, Myelocytes % 4H, Band Neutrophils 7, Platelet Estimate Adequate, Platelet Morphology Normal, Hypochromasia 1+ Current Medications Medications (Trade) Dose Ordered Sig/Art Route PRN Reason Start Time Stop Time Status Last Admin Dose Admin Acetaminophen (Tylenol) 650 mg Q4H PRN ORAL Mild Pain/Temp > 100.5 07/07/17 17:00 08/06/17 16:59 07/08/17 23:14 Cefepime HCl/ Dextrose (Maxipime/D5W) 110 ml @ 220 mls/hr Q24HRS IV 07/05/17 20:00 07/12/17 19:59 07/08/17 20:30 Dextrose (Dextrose 50%) STAT PRN IV Hypoglycemia 07/04/17 14:45 08/03/17 14:44 Heparin Sodium (Porcine) (Heparin 5000 units/ml) 5,000 units EVERY 12 HOURS SUBQ 07/04/17 21:00 08/03/17 20:59 07/09/17 08:38 Lorazepam (Ativan 2mg/ml 1ml) 2 mg Q2H PRN IV For Anxiety 07/04/17 14:45 07/11/17 14:44 Morphine Sulfate (Morphine Sulfate) 4 mg Q4H PRN IVP Severe Pain (Pain Scale 7-10) 07/04/17 14:45 07/11/17 14:44 07/07/17 05:25 Ondansetron HCl (Zofran) 4 mg Q6H PRN IVP Nausea & Vomiting 07/04/17 14:45 08/03/17 14:44 Patient Own Medication 1 ea 1 ea BID BOTH EYES 07/05/17 18:00 08/04/17 17:59 07/09/17 08:53 Polyethylene Glycol (Miralax) 17 gm DAILYPRN PRN ORAL Constipation 07/04/17 14:45 08/03/17 14:44 Sodium Chloride (0.45% NS 1000ml) 1,000 ml @ 50 mls/hr Q20H IV 07/04/17 17:00 08/03/17 16:59 07/09/17 05:54 Timolol Maleate (Timoptic 0.5% Op Soln) 1 drop TWICE A DAY BOTH EYES 07/05/17 13:30 08/04/17 13:29 07/09/17 08:38 Tobramycin/ Dexamethasone (Tobradex Opth Susp) 1 drop TID BOTH EYES 07/05/17 13:30 08/04/17 13:29 07/09/17 12:58 ADALGISA CHINCHILLA Jul 09, 2017 16:11
--- NOTE | 2017-07-09 18:21 | General Progress Note ---
Assessment/Plan Assessment/Plan 1. Granulocytosis concerning for leukemia such as chronic lymphocytic leukemia versus chronic neutrophilic leukemia. We will send for peripheral flow cytometry. --> smear negative for blasts --> follow up with Dr. Zaheer Aquino, her oncologist 2. Leukocytosis --> ID following 3. Anemia, secondary to chronic disease, rule out bleed. Anemia workup ordered. --> ob is negative --> work up reviewed, no evidence of iron or b12 deficiency 4. Right lower lobe infiltrate pneumonia, on antibiotics. Subjective Constitutional: Reports: no symptoms HEENT: Reports: no symptoms Cardiovascular: Reports: no symptoms Respiratory: Reports: no symptoms Gastrointestinal/Abdominal: Reports: no symptoms Genitourinary: Reports: no symptoms Neurologic/Psychiatric: Reports: no symptoms Endocrine: Reports: no symptoms Hematologic/Lymphatic: Reports: no symptoms Allergies: Coded Allergies: DEMECLOCYCLINE (Verified Allergy, Unknown, 12/29/10) Subjective NAD Objective Last 24 Hour Vital Signs Date Time Temp Pulse Resp B/P Pulse Ox O2 Delivery O2 Flow Rate FiO2 07/09/17 16:00 98.1 75 20 149/59 97 Nasal Cannula 2.0 07/09/17 12:49 97.7 74 20 145/73 97 Nasal Cannula 2.0 07/09/17 08:57 96.6 77 19 146/65 98 Nasal Cannula 2.0 07/09/17 04:00 97.3 72 20 139/66 98 Nasal Cannula 2.0 07/09/17 00:13 97.7 07/09/17 00:00 97.7 74 20 142/66 98 Nasal Cannula 2.0 07/08/17 20:00 97.7 76 20 136/63 96 Nasal Cannula 2.0 07/08/17 19:57 Nasal Cannula 2.0 28 07/08/17 19:57 96 2.0 28 Intake and Output 07/08/17 07/09/17 19:00 07:00 Intake Total 1170 ml 680 ml Balance 1170 ml 680 ml Intake Oral 720 ml 120 ml IV Total 450 ml 560 ml # Voids 2 2 Laboratory Tests 07/09/17 04:55: White Blood Count 23.5*H, Red Blood Count 3.67L, Hemoglobin 11.4L, Hematocrit 34.1L, Mean Corpuscular Volume 93, Mean Corpuscular Hemoglobin 31.2H, Mean Corpuscular Hemoglobin Concent 33.5, Red Cell Distribution Width 12.0, Platelet Count 242, Mean Platelet Volume 8.2, Neutrophils (%) (Auto) , Lymphocytes (%) ( Auto) , Monocytes (%) (Auto) , Eosinophils (%) (Auto) , Basophils (%) (Auto) , Differential Total Cells Counted 100, Neutrophils % (Manual) 65, Lymphocytes % ( Manual) 7L, Monocytes % (Manual) 16H, Eosinophils % (Manual) 1, Basophils % ( Manual) 0, Myelocytes % 4H, Band Neutrophils 7, Platelet Estimate Adequate, Platelet Morphology Normal, Hypochromasia 1+ Height (Feet): 5 Height (Inches): 4.00 Weight (Pounds): 130 General Appearance: alert EENT: normal ENT inspection Neck: supple Cardiovascular: normal rate Respiratory/Chest: chest wall non-tender Abdomen: no organomegaly Edema: mild edema 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
[2017-07-09 20:00] VITALS: BP 146/57
[2017-07-09] MEDS: Cefepime 2gm/D5W 110ml IV SCH ×2 (20:38)
[2017-07-10 00:15] VITALS: BP 147/56
[2017-07-10 04:19] VITALS: BP 145/57
[2017-07-10 08:10] LABS: OTHERS PATHOLOGIST COMMENT
[2017-07-10 08:37] VITALS: BP 157/67
[2017-07-10] MEDS: OPTH BOTH EYES SCH ×2 (09:25→17:21)
[2017-07-10] MEDS: Tobradex Opth Susp 2.5ml BOTH EYES SCH ×3 (09:25→17:21)
[2017-07-10] MEDS: Timolol 0.5% Op Soln 2.5ml BOTH EYES SCH ×2 (09:25→17:21)
[2017-07-10] MEDS: AZOPT 1% BOTH EYES SCH ×2 (09:25→17:21)
[2017-07-10] MEDS: Heparin 5000 units/ml inj SUBQ SCH ×2 (09:26→20:48)
[2017-07-10 11:58] VITALS: BP 152/62
--- NOTE | 2017-07-10 14:01 | Infectious Diseases Prog Note ---
Assessment/Plan Assessment/Plan Assessment: NEUTOPHILIC GRANULOCYTOSIS w/ toxic granules RLL Pneumonia Pansinusitis blood cx 07/04/17 negative sputum cx 07/05/17 normal oral carol NHL in remission undergoing r/o CLL vs CNL, pending peripheral flow cytometry Conjunctivitis, resolved Left Knee guerrero's cyst hypoalbuminemia hypokalemia mild elevated alk phos Plan: Continue Cefepime D#5 If peripheral flow cytometry is negative, will consider adjusting abx and additional imaging, but exam is reassuring today. check for C. difficile monitor CBC, recheck in AM. Subjective Constitutional: Reports: no symptoms HEENT: Reports: congestion, other - dark non bloody discharge when blowing her nose. Respiratory: Reports: no symptoms Cardiovascular: Reports: no symptoms Gastrointestinal/Abdominal: Reports: no symptoms Neurologic: Reports: no symptoms Musculoskeletal: Reports: no symptoms Allergies: Coded Allergies: DEMECLOCYCLINE (Verified Allergy, Unknown, 12/29/10) Objective Vital Signs Last 24 Hour Vital Signs Date Time Temp Pulse Resp B/P Pulse Ox O2 Delivery O2 Flow Rate FiO2 07/10/17 11:58 97.9 67 19 152/62 97 Nasal Cannula 2.0 07/10/17 08:37 97.3 73 19 157/67 98 Nasal Cannula 2.0 07/10/17 04:19 98.2 67 20 145/57 96 Nasal Cannula 07/10/17 02:49 98.2 07/10/17 00:15 98.2 74 20 147/56 96 Nasal Cannula 07/09/17 20:00 98.2 74 20 146/57 96 Nasal Cannula 07/09/17 19:15 97 2.0 28 07/09/17 19:15 Nasal Cannula 2.0 28 07/09/17 16:00 98.1 75 20 149/59 97 Nasal Cannula 2.0 Height (Feet): 5 Height (Inches): 4.00 Weight (Pounds): 130 Objective General Appearance: no acute distress HEENT: mucous membranes moist Respiratory/Chest: lungs clear Cardiovascular: normal rate Abdomen: soft, non tender Extremities: no edema Neurologic/Psychiatric: alert, oriented x 3, responsive Current Medications Medications (Trade) Dose Ordered Sig/Art Route PRN Reason Start Time Stop Time Status Last Admin Dose Admin Acetaminophen (Tylenol) 650 mg Q4H PRN ORAL Mild Pain/Temp > 100.5 07/07/17 17:00 08/06/17 16:59 07/10/17 01:50 Cefepime HCl/ Dextrose (Maxipime/D5W) 110 ml @ 220 mls/hr Q24HRS IV 07/05/17 20:00 07/12/17 19:59 07/09/17 20:38 Dextrose (Dextrose 50%) STAT PRN IV Hypoglycemia 07/04/17 14:45 08/03/17 14:44 Heparin Sodium (Porcine) (Heparin 5000 units/ml) 5,000 units EVERY 12 HOURS SUBQ 07/04/17 21:00 08/03/17 20:59 07/10/17 09:26 Lorazepam (Ativan 2mg/ml 1ml) 2 mg Q2H PRN IV For Anxiety 07/04/17 14:45 07/11/17 14:44 Morphine Sulfate (Morphine Sulfate) 4 mg Q4H PRN IVP Severe Pain (Pain Scale 7-10) 07/04/17 14:45 07/11/17 14:44 07/07/17 05:25 Ondansetron HCl (Zofran) 4 mg Q6H PRN IVP Nausea & Vomiting 07/04/17 14:45 08/03/17 14:44 Patient Own Medication 1 ea 1 ea BID BOTH EYES 07/05/17 18:00 08/04/17 17:59 07/10/17 09:25 Polyethylene Glycol (Miralax) 17 gm DAILYPRN PRN ORAL Constipation 07/04/17 14:45 08/03/17 14:44 Sodium Chloride (0.45% NS 1000ml) 1,000 ml @ 50 mls/hr Q20H IV 07/04/17 17:00 08/03/17 16:59 07/10/17 12:50 Timolol Maleate (Timoptic 0.5% Op Soln) 1 drop TWICE A DAY BOTH EYES 07/05/17 13:30 08/04/17 13:29 07/10/17 09:25 Tobramycin/ Dexamethasone (Tobradex Opth Susp) 1 drop TID BOTH EYES 07/05/17 13:30 08/04/17 13:29 07/10/17 12:49 Ricky Schroeder M.D. Jul 10, 2017 14:01
--- NOTE | 2017-07-10 14:40 | General Progress Note ---
Assessment/Plan Assessment/Plan 1. Granulocytosis concerning for leukemia such as chronic lymphocytic leukemia versus chronic neutrophilic leukemia. We will send for peripheral flow cytometry. --> flow cytometry negative for blasts, no evidence of abnormality --> follow up with Dr. Zaheer Aquino, her oncologist 2. Leukocytosis --> ID following 3. Anemia, secondary to chronic disease, rule out bleed. Anemia workup ordered. --> ob is negative --> work up reviewed, no evidence of iron or b12 deficiency 4. Right lower lobe infiltrate pneumonia, on antibiotics. Subjective Constitutional: Reports: no symptoms HEENT: Reports: no symptoms Cardiovascular: Reports: no symptoms Respiratory: Reports: no symptoms Gastrointestinal/Abdominal: Reports: no symptoms Genitourinary: Reports: no symptoms Neurologic/Psychiatric: Reports: no symptoms Endocrine: Reports: no symptoms Hematologic/Lymphatic: Reports: anemia Allergies: Coded Allergies: DEMECLOCYCLINE (Verified Allergy, Unknown, 12/29/10) Subjective no major changes Objective Last 24 Hour Vital Signs Date Time Temp Pulse Resp B/P Pulse Ox O2 Delivery O2 Flow Rate FiO2 07/10/17 11:58 97.9 67 19 152/62 97 Nasal Cannula 2.0 07/10/17 08:37 97.3 73 19 157/67 98 Nasal Cannula 2.0 07/10/17 04:19 98.2 67 20 145/57 96 Nasal Cannula 07/10/17 02:49 98.2 07/10/17 00:15 98.2 74 20 147/56 96 Nasal Cannula 07/09/17 20:00 98.2 74 20 146/57 96 Nasal Cannula 07/09/17 19:15 97 2.0 28 07/09/17 19:15 Nasal Cannula 2.0 28 07/09/17 16:00 98.1 75 20 149/59 97 Nasal Cannula 2.0 Intake and Output 07/09/17 07/10/17 19:00 07:00 Intake Total 50 ml 1400 ml Output Total 300 ml Balance 50 ml 1100 ml Intake Oral 840 ml IV Total 50 ml 560 ml Output Urine Total 300 ml # Voids 4 # Bowel Movements 2 Height (Feet): 5 Height (Inches): 4.00 Weight (Pounds): 130 General Appearance: no apparent distress EENT: normal ENT inspection Neck: normal alignment Cardiovascular: regular rhythm Edema: no edema noted Pedal (L), no edema noted Pedal (R) Skin: warm/dry Adrián Barrios Jul 10, 2017 14:40
[2017-07-10 16:04] VITALS: BP 154/66
--- NOTE | 2017-07-10 17:16 | Pulmonology Progress Note ---
Assessment/Plan Problems: (1) rule out leukemia (2) Sepsis (3) Pneumonia (4) Hx of lymphoma, non-Hodgkins Assessment/Plan blood smear, and cytology negative for any blasts check sputum pt/ot check cultures continue abx all cultures negative, guerrero for Cdiff wbc persistently high CT abdomen and pelvis to rule out occult infection Subjective ROS Limited/Unobtainable: No Allergies: Coded Allergies: DEMECLOCYCLINE (Verified Allergy, Unknown, 12/29/10) Objective Last 24 Hour Vital Signs Date Time Temp Pulse Resp B/P Pulse Ox O2 Delivery O2 Flow Rate FiO2 07/10/17 16:04 98.1 78 20 154/66 96 Nasal Cannula 2.0 07/10/17 11:58 97.9 67 19 152/62 97 Nasal Cannula 2.0 07/10/17 08:37 97.3 73 19 157/67 98 Nasal Cannula 2.0 07/10/17 04:19 98.2 67 20 145/57 96 Nasal Cannula 07/10/17 02:49 98.2 07/10/17 00:15 98.2 74 20 147/56 96 Nasal Cannula 07/09/17 20:00 98.2 74 20 146/57 96 Nasal Cannula 07/09/17 19:15 97 2.0 28 07/09/17 19:15 Nasal Cannula 2.0 28 Intake and Output 07/09/17 07/10/17 19:00 07:00 Intake Total 50 ml 1400 ml Output Total 300 ml Balance 50 ml 1100 ml Intake Oral 840 ml IV Total 50 ml 560 ml Output Urine Total 300 ml # Voids 4 # Bowel Movements 2 Objective General Appearance: WD/WN HEENT: normocephalic, atraumatic Respiratory/Chest: chest wall non-tender, lungs clear Breasts: no masses Cardiovascular: normal peripheral pulses, normal rate Abdomen: normal bowel sounds, soft, non tender Genitourinary: normal external genitalia Extremities: no cyanosis Skin: no rash 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, normal mood/affect Lymphatic: no groin adenopathy Current Medications Medications (Trade) Dose Ordered Sig/Art Route PRN Reason Start Time Stop Time Status Last Admin Dose Admin Acetaminophen (Tylenol) 650 mg Q4H PRN ORAL Mild Pain/Temp > 100.5 07/07/17 17:00 08/06/17 16:59 07/10/17 01:50 Cefepime HCl/ Dextrose (Maxipime/D5W) 110 ml @ 220 mls/hr Q24HRS IV 07/05/17 20:00 07/12/17 19:59 07/09/17 20:38 Dextrose (Dextrose 50%) STAT PRN IV Hypoglycemia 07/04/17 14:45 08/03/17 14:44 Heparin Sodium (Porcine) (Heparin 5000 units/ml) 5,000 units EVERY 12 HOURS SUBQ 07/04/17 21:00 08/03/17 20:59 07/10/17 09:26 Lorazepam (Ativan 2mg/ml 1ml) 2 mg Q2H PRN IV For Anxiety 07/04/17 14:45 07/11/17 14:44 Morphine Sulfate (Morphine Sulfate) 4 mg Q4H PRN IVP Severe Pain (Pain Scale 7-10) 07/04/17 14:45 07/11/17 14:44 07/07/17 05:25 Ondansetron HCl (Zofran) 4 mg Q6H PRN IVP Nausea & Vomiting 07/04/17 14:45 08/03/17 14:44 Patient Own Medication 1 ea 1 ea BID BOTH EYES 07/05/17 18:00 08/04/17 17:59 07/10/17 09:25 Polyethylene Glycol (Miralax) 17 gm DAILYPRN PRN ORAL Constipation 07/04/17 14:45 08/03/17 14:44 Sodium Chloride (0.45% NS 1000ml) 1,000 ml @ 50 mls/hr Q20H IV 07/04/17 17:00 08/03/17 16:59 07/10/17 12:50 Timolol Maleate (Timoptic 0.5% Op Soln) 1 drop TWICE A DAY BOTH EYES 07/05/17 13:30 08/04/17 13:29 07/10/17 09:25 Tobramycin/ Dexamethasone (Tobradex Opth Susp) 1 drop TID BOTH EYES 07/05/17 13:30 08/04/17 13:29 07/10/17 12:49 ADALGISA CHINCHILLA Jul 10, 2017 17:16
[2017-07-10] MEDS: Analgesic Balm 15gm TOPIC SCH ×2 (18:34→20:46)
[2017-07-10 20:00] VITALS: BP 151/68
[2017-07-10] MEDS: Cefepime 2gm/D5W 110ml IV SCH ×2 (20:46)
[2017-07-11] VITALS (7 sets, daily range): BP systolic 110–161; BP diastolic 57–71
[2017-07-11 07:25] LABS: MEAN CORPUSCULAR HEMOGLOBIN 31.5 PG (27.0-31.0); MEAN CORPUSCULAR HGB CONC 33.9 G/DL (32.0-36.0); MEAN CORPUSCULAR VOLUME 93 FL (80-99); MEAN PLATELET VOLUME 7.8 FL (6.5-10.1); PLATELET COUNT 222 K/UL (150-450); RED BLOOD COUNT 3.28 M/UL (4.20-5.40); RED CELL DISTRIBUTION WIDTH 11.9 % (11.6-14.8); WHITE BLOOD COUNT 21.1 K/UL (4.8-10.8)
[2017-07-11 08:00] LABS: ALANINE AMINOTRANSFERASE 19 U/L (3-33); ALBUMIN/GLOBULIN RATIO 1.9 (1.0-2.7); ANION GAP 12 (5-15); ASPARTATE AMINO TRANSFERASE 26 U/L (5-40); CALCIUM 8.1 mg/dL (8.6-10.2); CARBON DIOXIDE 25 mEQ/L (20-30); CHLORIDE 103 mEQ/L (98-107); CREATININE 0.6 mg/dL (0.5-0.9); CRP QUANT 8.9 mg/dL (< 0.5); HEMOLYSIS 85; PHOSPHORUS 3.3 mg/dL (2.5-4.8); POTASSIUM 4.1 mEQ/L (3.4-4.9); SODIUM 140 mEQ/L (135-145); TOTAL PROTEIN 4.4 g/dL (6.6-8.7)
[2017-07-11] MEDS: Tobradex Opth Susp 2.5ml BOTH EYES SCH ×3 (08:26→18:28)
[2017-07-11] MEDS: Timolol 0.5% Op Soln 2.5ml BOTH EYES SCH ×2 (08:26→18:28)
[2017-07-11] MEDS: Analgesic Balm 15gm TOPIC SCH ×4 (08:27→21:36)
[2017-07-11] MEDS: OPTH BOTH EYES SCH ×2 (08:27→18:28)
[2017-07-11] MEDS: AZOPT 1% BOTH EYES SCH ×2 (08:27→18:28)
[2017-07-11] MEDS: Heparin 5000 units/ml inj SUBQ SCH ×2 (08:38→21:33)
[2017-07-11 10:16] LABS: BAND NEUTROPHILS % (MANUAL) 5 % (0-8); BASOPHILS % (MANUAL) 0 % (0-2); EOSINOPHILS % (MANUAL) 1 % (0-3); LYMPHOCYTES % (MANUAL) 6 % (20-45); METAMYELOCYTES % 3 % (0-0); MYELOCYTES % 3 % (0-0); NEUTROPHILS % (MANUAL) 74 % (45-75); PLATELET ESTIMATE ADEQUATE; PLATELET MORPHOLOGY NORMAL; TOTAL CELLS COUNTED 100
[2017-07-11 10:19] LABS: MICROCYTES 1+
[2017-07-11 10:22] LABS: HYPOCHROMASIA 1+
--- NOTE | 2017-07-11 15:30 | Diagnostic Imaging Report ---
\H\CT THORAX\N\ Indications: Chest pain, sepsis, pneumonia, history of non-Hodgkin's lymphoma Technique: Continuous helical CT imaging of the thorax and upper abdomen was performed with automatic exposure control following intravenous administration of nonionic iodine contrast, on a Siemens sensation [address] scanner. Axial, coronal, and sagittal images were reconstructed at 5 mm slice thickness. CTDI volume(s): 8, 49, 13, 20, 14 mGy Total DLP: 1852 mGy-cm (Includes CT neck, abdomen, pelvis) Findings: Comparison: None Motion artifact degrades images. Loss in the dependent portions of right middle lobe, both lower lobes, right greater left. Increased interstitial markings in the nonconsolidated dependent portions of both lower lobes. Moderate bilateral pleural effusions, right greater than left. Heart normal size. No pericardial abnormality. No mediastinal or hilar enlarged lymph nodes, other abnormal mass or fluid collection. Scattered arterial mural calcifications. Vascular nonaneurysmal. No obvious filling defects in central pulmonary arteries. Chest wall soft tissues nonfocal. Multilevel disc space narrowing with marginal osteophyte formation, vacuum phenomenon in thoracic spine. IMPRESSION: Pulmonary bibasal atelectasis. Superimposed pneumonia not excludable. Pulmonary bibasal interstitial infiltrates, nonspecific, acuity indeterminate. Moderate bibasal pleural effusions, nonspecific Arteriosclerosis Degenerative spondylosis \H\CT ABDOMEN PELVIS\N\ Indications: Abdominal pain, sepsis, history of non-Hodgkin's lymphoma Technique: Continuous helical CT imaging of the abdomen and pelvis was performed with automatic exposure control following administration of oral and intravenous nonionic iodine contrast, on a Siemens sensation [address] scanner. Axial, coronal, and sagittal images were reconstructed at 5 mm slice thickness. CTDI volume(s): As above mGy Total DLP: As above mGy-cm Findings: Comparison: None Oral contrast has passed throughout the gastrointestinal tract to the level of distal descending colon. Entire tract nondilated aside from mild fecal distention of the rectosigmoid. Small hiatal hernia. Appendix not identified. Multiple colonic diverticula. No obvious mural thickening, adjacent stranding, extraluminal gas or loculated fluid collections. Small amount of free fluid in the dependent portion of pelvis. 2 mm circumscribed low-attenuation focus anterior aspect hepatic segment 4A, too small to accurately characterize. Gas and mildly dilated left intrahepatic bile ducts. Gallbladder absent. Surgical clips in gallbladder fossa. Common bile duct mildly distended and fluid-filled, maximum diameter 10 mm. No associated stone or mass identified. It appears to insert into a 2 cm duodenal diverticulum. Subcentimeter circumscribed low-attenuation foci in both renal cortices. Prominent arterial mural calcifications. No obvious significant flow-limiting stenosis or occlusion. Images through lower pelvis degraded by artifact from left hip prosthesis. Mild prominence/distention of uterine endometrial canal, low attenuation. Small nodular calcification in uterine myometrium. Bilateral fat-containing inguinal hernias. Remainder of visualized abdominopelvic anatomy demonstrates no other obvious acute abnormality. No enlarged lymph nodes detected. Abdominopelvic wall soft tissues nonfocal. Disc space narrowing with marginal osteophyte formation, vacuum phenomenon, discogenic sclerosis, mild facet hypertrophy lower lumbar spine. IMPRESSION: Small amount pelvic free fluid, nonspecific Mild dilation of bile ducts without obvious obstructive etiology, they be secondary to previous cholecystectomy. Correlate clinically. Pneumobilia may be secondary to previous enterotomy. Ascending cholangitis with gas-forming organism not excludable. Correlate clinically. Hiatal hernia -- Duodenal, multiple colonic diverticula Tiny hepatic low-attenuation focus, nonspecific Bilateral renal cortical low-attenuation foci probably but not definitely cysts Nonspecific mild prominence of uterine endometrial canal. Consider ultrasound correlation. Uterine myometrial calcifications likely vascular or degenerated fibroid Increased colorectal feces suggests constipation Bilateral fat-containing inguinal hernias Previous left hip arthroplasty Degenerative spondylosis
--- NOTE | 2017-07-11 16:35 | General Progress Note ---
Assessment/Plan Assessment/Plan 1. Granulocytosis concerning for leukemia such as chronic lymphocytic leukemia versus chronic neutrophilic leukemia --> flow cytometry negative for blasts, no evidence of abnormality --> CT scan was negative for malignancy --> follow up with Dr. Zaheer Aquino, her onc 2. Leukocytosis --> ID following, ct abd/pelvis to rule out infection negative 3. Anemia, secondary to chronic disease, rule out bleed. Anemia workup ordered. --> ob is negative --> work up reviewed, no evidence of iron or b12 deficiency 4. Right lower lobe infiltrate pneumonia, on antibiotics. Subjective Constitutional: Reports: no symptoms HEENT: Reports: no symptoms Cardiovascular: Reports: no symptoms Respiratory: Reports: no symptoms Gastrointestinal/Abdominal: Reports: no symptoms Genitourinary: Reports: no symptoms Neurologic/Psychiatric: Reports: no symptoms Endocrine: Reports: no symptoms Hematologic/Lymphatic: Reports: anemia Allergies: Coded Allergies: DEMECLOCYCLINE (Verified Allergy, Unknown, 12/29/10) Subjective ct abdomen scheduled today Objective Last 24 Hour Vital Signs Date Time Temp Pulse Resp B/P Pulse Ox O2 Delivery O2 Flow Rate FiO2 07/11/17 16:00 98.2 69 18 155/65 96 Nasal Cannula 2.0 07/11/17 11:57 98.1 72 18 153/65 97 Nasal Cannula 07/11/17 08:00 97.2 65 17 110/65 96 Nasal Cannula 07/11/17 04:00 97.7 84 18 154/71 96 Nasal Cannula 2.0 07/11/17 01:06 79 150/58 07/11/17 00:00 98.4 86 18 161/67 95 Nasal Cannula 2.0 07/10/17 21:08 Nasal Cannula 2.0 28 07/10/17 21:08 97 2.0 28 07/10/17 20:00 98.0 77 18 151/68 96 Nasal Cannula 2.0 Intake and Output 07/10/17 07/11/17 19:00 07:00 Intake Total 840 ml 780 ml Output Total 240 ml Balance 600 ml 780 ml Intake Oral 240 ml 120 ml IV Total 600 ml 660 ml Output Urine Total 240 ml # Voids 2 5 Laboratory Tests 07/11/17 04:50: White Blood Count 21.1H, Red Blood Count 3.28L, Hemoglobin 10.3L, Hematocrit 30.5L, Mean Corpuscular Volume 93, Mean Corpuscular Hemoglobin 31.5H, Mean Corpuscular Hemoglobin Concent 33.9, Red Cell Distribution Width 11.9, Platelet Count 222, Mean Platelet Volume 7.8, Neutrophils (%) (Auto) , Lymphocytes (%) ( Auto) , Monocytes (%) (Auto) , Eosinophils (%) (Auto) , Basophils (%) (Auto) , Differential Total Cells Counted 100, Neutrophils % (Manual) 74, Lymphocytes % ( Manual) 6L, Monocytes % (Manual) 8, Eosinophils % (Manual) 1, Basophils % ( Manual) 0, Metamyelocytes % 3H, Myelocytes % 3H, Band Neutrophils 5, Platelet Estimate Adequate, Platelet Morphology Normal, Hypochromasia 1+, Microcytosis 1+ , Erythrocyte Sedimentation Rate 92H, Sodium Level 140, Potassium Level 4.1, Chloride Level 103, Carbon Dioxide Level 25, Anion Gap 12, Blood Urea Nitrogen 7 , Creatinine 0.6, Estimat Glomerular Filtration Rate , Glucose Level 105, Calcium Level 8.1L, Phosphorus Level 3.3, Magnesium Level 2.0, Total Bilirubin 0.6, Aspartate Amino Transf (AST/SGOT) 26, Alanine Aminotransferase (ALT/SGPT) 19, Alkaline Phosphatase 160H, C-Reactive Protein, Quantitative 8.9H, Total Protein 4.4L, Albumin 2.9L, Globulin 1.5, Albumin/Globulin Ratio 1.9 Height (Feet): 5 Height (Inches): 4.00 Weight (Pounds): 130 General Appearance: WD/WN EENT: PERRL/EOMI Neck: non-tender Cardiovascular: normal peripheral pulses Respiratory/Chest: no respiratory distress Abdomen: non tender Extremities: non-tender Edema: no edema noted Pedal (L), no edema noted Pedal (R) Skin: warm/dry Adrián Barrios Jul 11, 2017 16:35
--- NOTE | 2017-07-11 18:54 | Infectious Diseases Prog Note ---
Assessment/Plan Assessment/Plan Assessment: RLL pneumonia, sputum cx 07/05 neg, blood cx 07/04 negative NEUTOPHILIC GRANULOCYTOSIS w/ toxic granules; decreased from 39.6 to 21.1 on abx for pneumonia Exam reassuring CT c/a/p not diagnostic, but negative for abscess, and does have some pneumobilia s/p cholecystectomy, but her exam and LFTs are not consistent with ascending cholangitis now that leukemia has been excluded, and CT w/o focal infectious process other than pneumonia which she is responding to, still would like to r/o C diff but with her constipation it hasn't been sent. will start empiric trial of flagyl. 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 difficile monitor CBC, recheck in AM. If continues to downtrend, okay for dispo to SNF on continued abx from ID standpoint. Subjective Constitutional: Reports: no symptoms Respiratory: Reports: no symptoms Cardiovascular: Reports: no symptoms Gastrointestinal/Abdominal: Reports: no symptoms Genitourinary: Reports: no symptoms Skin: Reports: no symptoms Allergies: Coded Allergies: DEMECLOCYCLINE (Verified Allergy, Unknown, 12/29/10) Objective Vital Signs Last 24 Hour Vital Signs Date Time Temp Pulse Resp B/P Pulse Ox O2 Delivery O2 Flow Rate FiO2 07/11/17 16:00 98.2 69 18 155/65 96 Nasal Cannula 2.0 07/11/17 11:57 98.1 72 18 153/65 97 Nasal Cannula 07/11/17 08:00 97.2 65 17 110/65 96 Nasal Cannula 07/11/17 04:00 97.7 84 18 154/71 96 Nasal Cannula 2.0 07/11/17 01:06 79 150/58 07/11/17 00:00 98.4 86 18 161/67 95 Nasal Cannula 2.0 07/10/17 21:08 Nasal Cannula 2.0 28 07/10/17 21:08 97 2.0 28 07/10/17 20:00 98.0 77 18 151/68 96 Nasal Cannula 2.0 Height (Feet): 5 Height (Inches): 4.00 Weight (Pounds): 130 Objective General Appearance: no acute distress HEENT: mucous membranes moist Respiratory/Chest: lungs clear Cardiovascular: normal rate Abdomen: soft, non tender Extremities: no edema Neurologic/Psychiatric: alert, oriented x 3, responsive no new micro Radiology Patient : KALEIGH YUNG Referring Physician: ADALGISA CHINCHILLA ID Number: [id number] Service Date: 07/11/17 : 1930 Report Date: 07/11/17 Gender: F Accession No.: [id number] Location: 4W Procedure: CT Chest Abdomen Pelvis W/Cont Indications: Chest pain, sepsis, pneumonia, history of non-Hodgkin's lymphoma Technique: Continuous helical CT imaging of the thorax and upper abdomen was performed with automatic exposure control following intravenous administration of nonionic iodine contrast, on a Siemens sensation [address] scanner. Axial, coronal, and sagittal images were reconstructed at 5 mm slice thickness. CTDI volume(s): 8, 49, 13, 20, 14 mGy Total DLP: 1852 mGy-cm (Includes CT neck, abdomen, pelvis) Findings: Comparison: None Motion artifact degrades images. Loss in the dependent portions of right middle lobe, both lower lobes, right greater left. Increased interstitial markings in the nonconsolidated dependent portions of both lower lobes. Moderate bilateral pleural effusions, right greater than left. Heart normal size. No pericardial abnormality. No mediastinal or hilar enlarged lymph nodes, other abnormal mass or fluid collection. Scattered arterial mural calcifications. Vascular nonaneurysmal. No obvious filling defects in central pulmonary arteries. Chest wall soft tissues nonfocal. Multilevel disc space narrowing with marginal osteophyte formation, vacuum phenomenon in thoracic spine. IMPRESSION: Pulmonary bibasal atelectasis. Superimposed pneumonia not excludable. Pulmonary bibasal interstitial infiltrates, nonspecific, acuity indeterminate. Moderate bibasal pleural effusions, nonspecific Arteriosclerosis Degenerative spondylosis Indications: Abdominal pain, sepsis, history of non-Hodgkin's lymphoma Technique: Continuous helical CT imaging of the abdomen and pelvis was performed with automatic exposure control following administration of oral and intravenous nonionic iodine contrast, on a Siemens sensation [address] scanner. Axial, coronal, and sagittal images were reconstructed at 5 mm slice thickness. CTDI volume(s): As above mGy Total DLP: As above mGy-cm Findings: Comparison: None Oral contrast has passed throughout the gastrointestinal tract to the level of distal descending colon. Entire tract nondilated aside from mild fecal distention of the rectosigmoid. Small hiatal hernia. Appendix not identified. Multiple colonic diverticula. No obvious mural thickening, adjacent stranding, extraluminal gas or loculated fluid collections. Small amount of free fluid in the dependent portion of pelvis. 2 mm circumscribed low-attenuation focus anterior aspect hepatic segment 4A, too small to accurately characterize. Gas and mildly dilated left intrahepatic bile ducts. Gallbladder absent. Surgical clips in gallbladder fossa. Common bile duct mildly distended and fluid-filled, maximum diameter 10 mm. No associated stone or mass identified. It appears to insert into a 2 cm duodenal diverticulum. Subcentimeter circumscribed low-attenuation foci in both renal cortices. Prominent arterial mural calcifications. No obvious significant flow-limiting stenosis or occlusion. Images through lower pelvis degraded by artifact from left hip prosthesis. Mild prominence/distention of uterine endometrial canal, low attenuation. Small nodular calcification in uterine myometrium. Bilateral fat-containing inguinal hernias. Remainder of visualized abdominopelvic anatomy demonstrates no other obvious acute abnormality. No enlarged lymph nodes detected. Abdominopelvic wall soft tissues nonfocal. Disc space narrowing with marginal osteophyte formation, vacuum phenomenon, discogenic sclerosis, mild facet hypertrophy lower lumbar spine. IMPRESSION: Small amount pelvic free fluid, nonspecific Mild dilation of bile ducts without obvious obstructive etiology, they be secondary to previous cholecystectomy. Correlate clinically. Pneumobilia may be secondary to previous enterotomy. Ascending cholangitis with gas-forming organism not excludable. Correlate clinically. Hiatal hernia -- Duodenal, multiple colonic diverticula Tiny hepatic low-attenuation focus, nonspecific Bilateral renal cortical low-attenuation foci probably but not definitely cysts Nonspecific mild prominence of uterine endometrial canal. Consider ultrasound correlation. Uterine myometrial calcifications likely vascular or degenerated fibroid Increased colorectal feces suggests constipation Bilateral fat-containing inguinal hernias Previous left hip arthroplasty Degenerative spondylosis Laboratory Tests Test 07/11/17 04:50 White Blood Count 21.1 K/UL (4.8-10.8) H Red Blood Count 3.28 M/UL (4.20-5.40) L Hemoglobin 10.3 G/DL (12.0-16.0) L Hematocrit 30.5 % (37.0-47.0) L Mean Corpuscular Volume 93 FL (80-99) Mean Corpuscular Hemoglobin 31.5 PG (27.0-31.0) H Mean Corpuscular Hemoglobin Concent 33.9 G/DL (32.0-36.0) Red Cell Distribution Width 11.9 % (11.6-14.8) Platelet Count 222 K/UL (150-450) Mean Platelet Volume 7.8 FL (6.5-10.1) Neutrophils (%) (Auto) % (45.0-75.0) Lymphocytes (%) (Auto) % (20.0-45.0) Monocytes (%) (Auto) % (1.0-10.0) Eosinophils (%) (Auto) % (0.0-3.0) Basophils (%) (Auto) % (0.0-2.0) Differential Total Cells Counted 100 Neutrophils % (Manual) 74 % (45-75) Lymphocytes % (Manual) 6 % (20-45) L Monocytes % (Manual) 8 % (1-10) Eosinophils % (Manual) 1 % (0-3) Basophils % (Manual) 0 % (0-2) Metamyelocytes % 3 % (0-0) H Myelocytes % 3 % (0-0) H Band Neutrophils 5 % (0-8) Platelet Estimate Adequate Platelet Morphology Normal Hypochromasia 1+ Microcytosis 1+ Erythrocyte Sedimentation Rate 92 MM/HR (0-42) H Sodium Level 140 mEQ/L (135-145) Potassium Level 4.1 mEQ/L (3.4-4.9) Chloride Level 103 mEQ/L (98-107) Carbon Dioxide Level 25 mEQ/L (20-30) Anion Gap 12 (5-15) Blood Urea Nitrogen 7 mg/dL (7-23) Creatinine 0.6 mg/dL (0.5-0.9) Estimat Glomerular Filtration Rate mL/min (>60) Glucose Level 105 mg/dL (74-106) Calcium Level 8.1 mg/dL (8.6-10.2) L Phosphorus Level 3.3 mg/dL (2.5-4.8) Magnesium Level 2.0 mg/dL (1.7-2.5) Total Bilirubin 0.6 mg/dL (0.0-1.2) Aspartate Amino Transf (AST/SGOT) 26 U/L (5-40) Alanine Aminotransferase (ALT/SGPT) 19 U/L (3-33) Alkaline Phosphatase 160 U/L (35-104) H C-Reactive Protein, Quantitative 8.9 mg/dL (< 0.5) H Total Protein 4.4 g/dL (6.6-8.7) L Albumin 2.9 g/dL (3.5-5.2) L Globulin 1.5 g/dL Albumin/Globulin Ratio 1.9 (1.0-2.7) Current Medications Medications (Trade) Dose Ordered Sig/Art Route PRN Reason Start Time Stop Time Status Last Admin Dose Admin Acetaminophen (Tylenol) 650 mg Q4H PRN ORAL Mild Pain/Temp > 100.5 07/07/17 17:00 08/06/17 16:59 07/10/17 01:50 Cefepime HCl/ Dextrose (Maxipime/D5W) 110 ml @ 220 mls/hr Q24HRS IV 07/05/17 20:00 07/12/17 19:59 07/10/17 20:46 Dextrose (Dextrose 50%) STAT PRN IV Hypoglycemia 07/04/17 14:45 08/03/17 14:44 Heparin Sodium (Porcine) (Heparin 5000 units/ml) 5,000 units EVERY 12 HOURS SUBQ 07/04/17 21:00 08/03/17 20:59 07/11/17 08:38 Menthol/Methyl Salicylate (Bengay) 1 applic FOUR TIMES A DAY TOPIC 07/10/17 18:30 08/09/17 18:29 07/11/17 18:28 Ondansetron HCl (Zofran) 4 mg Q6H PRN IVP Nausea & Vomiting 07/04/17 14:45 08/03/17 14:44 Patient Own Medication 1 ea 1 ea BID BOTH EYES 07/05/17 18:00 08/04/17 17:59 07/11/17 18:28 Polyethylene Glycol (Miralax) 17 gm DAILYPRN PRN ORAL Constipation 07/04/17 14:45 08/03/17 14:44 Sodium Chloride (0.45% NS 1000ml) 1,000 ml @ 50 mls/hr Q20H IV 07/04/17 17:00 08/03/17 16:59 07/11/17 08:27 Timolol Maleate (Timoptic 0.5% Op Soln) 1 drop TWICE A DAY BOTH EYES 07/05/17 13:30 08/04/17 13:29 07/11/17 18:28 Tobramycin/ Dexamethasone (Tobradex Opth Susp) 1 drop TID BOTH EYES 07/05/17 13:30 08/04/17 13:29 07/11/17 18:28 Ricky Schroeder M.D. Jul 11, 2017 18:54
[2017-07-11] MEDS ORDERED: CEFEPIME-D2 GM/50 ML IVPB (18:58)
[2017-07-11] MEDS ORDERED: METRONIDAZOLE500 MG ORAL (18:58)
[2017-07-11 19:54] LABS: LYMPHOCYTES % (AUTO) 4.5 % (20.0-45.0); MEAN CORPUSCULAR HEMOGLOBIN 31.8 PG (27.0-31.0); MEAN CORPUSCULAR HGB CONC 34.7 G/DL (32.0-36.0); MEAN CORPUSCULAR VOLUME 92 FL (80-99); MEAN PLATELET VOLUME 9.5 FL (6.5-10.1); NEUTROPHILS % (AUTO) 81.6 % (45.0-75.0); PLATELET COUNT 223 K/UL (150-450); RED BLOOD COUNT 3.24 M/UL (4.20-5.40); RED CELL DISTRIBUTION WIDTH 11.8 % (11.6-14.8); WHITE BLOOD COUNT 20.1 K/UL (4.8-10.8)
[2017-07-11 19:55] LABS: BASOPHILS % (AUTO) 1.3 % (0.0-2.0); EOSINOPHILS % (AUTO) 0.3 % (0.0-3.0); MONOCYTES % (AUTO) 12.3 % (1.0-10.0)
[2017-07-11] MEDS: Cefepime 2gm/D5W 110ml IV SCH ×2 (21:17)
--- NOTE | 2017-07-11 22:41 | Pulmonology Progress Note ---
Assessment/Plan Problems: (1) rule out leukemia (2) Sepsis (3) Pneumonia (4) Hx of lymphoma, non-Hodgkins Assessment/Plan blood smear, and cytology negative for any blasts check sputum pt/ot check cultures continue abx all cultures negative, stool for Cdiff wbc persistently high CT abdomen and pelvis to rule out occult infection, all reviewed, wbc decreasing from 30's to 20's started on flagyl dc home in am with oral abx if ok with ID Subjective ROS Limited/Unobtainable: No Constitutional: Reports: no symptoms HEENT: Repors: no symptoms Allergies: Coded Allergies: DEMECLOCYCLINE (Verified Allergy, Unknown, 12/29/10) Objective Last 24 Hour Vital Signs Date Time Temp Pulse Resp B/P Pulse Ox O2 Delivery O2 Flow Rate FiO2 07/11/17 20:00 98.6 73 19 147/57 96 Nasal Cannula 07/11/17 16:00 98.2 69 18 155/65 96 Nasal Cannula 2.0 07/11/17 11:57 98.1 72 18 153/65 97 Nasal Cannula 07/11/17 08:00 97.2 65 17 110/65 96 Nasal Cannula 07/11/17 04:00 97.7 84 18 154/71 96 Nasal Cannula 2.0 07/11/17 01:06 79 150/58 07/11/17 00:00 98.4 86 18 161/67 95 Nasal Cannula 2.0 Intake and Output 07/10/17 07/11/17 19:00 07:00 Intake Total 840 ml 780 ml Output Total 240 ml Balance 600 ml 780 ml Intake Oral 240 ml 120 ml IV Total 600 ml 660 ml Output Urine Total 240 ml # Voids 2 5 Objective General Appearance: WD/WN HEENT: normocephalic, atraumatic Respiratory/Chest: chest wall non-tender, lungs clear Breasts: no masses Cardiovascular: normal peripheral pulses, normal rate Abdomen: normal bowel sounds, soft, non tender Genitourinary: normal external genitalia Extremities: no cyanosis Skin: no rash 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, normal mood/affect Lymphatic: no groin adenopathy Laboratory Tests 07/11/17 04:50: White Blood Count 21.1H, Red Blood Count 3.28L, Hemoglobin 10.3L, Hematocrit 30.5L, Mean Corpuscular Volume 93, Mean Corpuscular Hemoglobin 31.5H, Mean Corpuscular Hemoglobin Concent 33.9, Red Cell Distribution Width 11.9, Platelet Count 222, Mean Platelet Volume 7.8, Neutrophils (%) (Auto) , Lymphocytes (%) ( Auto) , Monocytes (%) (Auto) , Eosinophils (%) (Auto) , Basophils (%) (Auto) , Differential Total Cells Counted 100, Neutrophils % (Manual) 74, Lymphocytes % ( Manual) 6L, Monocytes % (Manual) 8, Eosinophils % (Manual) 1, Basophils % ( Manual) 0, Metamyelocytes % 3H, Myelocytes % 3H, Band Neutrophils 5, Platelet Estimate Adequate, Platelet Morphology Normal, Hypochromasia 1+, Microcytosis 1+ , Erythrocyte Sedimentation Rate 92H, Sodium Level 140, Potassium Level 4.1, Chloride Level 103, Carbon Dioxide Level 25, Anion Gap 12, Blood Urea Nitrogen 7 , Creatinine 0.6, Estimat Glomerular Filtration Rate , Glucose Level 105, Calcium Level 8.1L, Phosphorus Level 3.3, Magnesium Level 2.0, Total Bilirubin 0.6, Aspartate Amino Transf (AST/SGOT) 26, Alanine Aminotransferase (ALT/SGPT) 19, Alkaline Phosphatase 160H, C-Reactive Protein, Quantitative 8.9H, Total Protein 4.4L, Albumin 2.9L, Globulin 1.5, Albumin/Globulin Ratio 1.9 07/11/17 19:30: White Blood Count 20.1H, Red Blood Count 3.24L, Hemoglobin 10.3L, Hematocrit 29.7L, Mean Corpuscular Volume 92, Mean Corpuscular Hemoglobin 31.8H, Mean Corpuscular Hemoglobin Concent 34.7, Red Cell Distribution Width 11.8, Platelet Count 223, Mean Platelet Volume 9.5, Neutrophils (%) (Auto) 81.6H, Lymphocytes ( %) (Auto) 4.5L, Monocytes (%) (Auto) 12.3H, Eosinophils (%) (Auto) 0.3, Basophils (%) (Auto) 1.3, Lactate Dehydrogenase 448H Current Medications Medications (Trade) Dose Ordered Sig/Art Route PRN Reason Start Time Stop Time Status Last Admin Dose Admin Acetaminophen (Tylenol) 650 mg Q4H PRN ORAL Mild Pain/Temp > 100.5 07/07/17 17:00 08/06/17 16:59 07/10/17 01:50 Cefepime HCl/ Dextrose (Maxipime/D5W) 110 ml @ 220 mls/hr Q24HRS IV 07/05/17 20:00 07/12/17 19:59 07/11/17 21:17 Dextrose (Dextrose 50%) STAT PRN IV Hypoglycemia 07/04/17 14:45 08/03/17 14:44 Heparin Sodium (Porcine) (Heparin 5000 units/ml) 5,000 units EVERY 12 HOURS SUBQ 07/04/17 21:00 08/03/17 20:59 07/11/17 21:33 Menthol/Methyl Salicylate (Bengay) 1 applic FOUR TIMES A DAY TOPIC 07/10/17 18:30 08/09/17 18:29 07/11/17 21:36 Metronidazole (Flagyl) 500 mg Q8HR ORAL 07/11/17 22:00 07/17/17 21:59 Ondansetron HCl (Zofran) 4 mg Q6H PRN IVP Nausea & Vomiting 07/04/17 14:45 08/03/17 14:44 Patient Own Medication 1 ea 1 ea BID BOTH EYES 07/05/17 18:00 08/04/17 17:59 07/11/17 18:28 Polyethylene Glycol (Miralax) 17 gm DAILYPRN PRN ORAL Constipation 07/04/17 14:45 08/03/17 14:44 Sodium Chloride (0.45% NS 1000ml) 1,000 ml @ 50 mls/hr Q20H IV 07/04/17 17:00 08/03/17 16:59 07/11/17 08:27 Timolol Maleate (Timoptic 0.5% Op Soln) 1 drop TWICE A DAY BOTH EYES 07/05/17 13:30 08/04/17 13:29 07/11/17 18:28 Tobramycin/ Dexamethasone (Tobradex Opth Susp) 1 drop TID BOTH EYES 07/05/17 13:30 08/04/17 13:29 07/11/17 18:28 ADALGISA CHINCHILLA Jul 11, 2017 22:41
[2017-07-11] MEDS: metroNIDAZOLE 500mg tab ORAL SCH (22:48)
[2017-07-12 00:06] VITALS: BP 155/65
[2017-07-12 04:20] VITALS: BP 136/61
[2017-07-12] MEDS: metroNIDAZOLE 500mg tab ORAL SCH ×2 (05:37→13:07)
[2017-07-12 07:25] LABS: BASOPHILS % (AUTO) 1.6 % (0.0-2.0); EOSINOPHILS % (AUTO) 0.4 % (0.0-3.0); LYMPHOCYTES % (AUTO) 5.4 % (20.0-45.0); MEAN CORPUSCULAR HEMOGLOBIN 31.5 PG (27.0-31.0); MEAN CORPUSCULAR HGB CONC 34.1 G/DL (32.0-36.0); MEAN CORPUSCULAR VOLUME 92 FL (80-99); MEAN PLATELET VOLUME 9.1 FL (6.5-10.1); MONOCYTES % (AUTO) 12.9 % (1.0-10.0); NEUTROPHILS % (AUTO) 79.7 % (45.0-75.0); PLATELET COUNT 211 K/UL (150-450); RED BLOOD COUNT 3.18 M/UL (4.20-5.40); RED CELL DISTRIBUTION WIDTH 11.8 % (11.6-14.8); WHITE BLOOD COUNT 16.6 K/UL (4.8-10.8)
--- NOTE | 2017-07-12 07:32 | Pulmonology Progress Note ---
Assessment/Plan Assessment/Plan ASSESSMENT sepsis RLL PNA pansinusitis NHL - in remission r/o leukemia - CLL vs CML- negative conjunctivitis- resolved Avina cyst L popliteal ankle sprain anemia of chronic disease PLAN OF CARE MS floor sputum cx negative, blood cx negative ID follows abx per ID recommendations O2 HHN prn stool C dif if able started on empiric Flagyl flow cytometry was negative while working out to r/o leukemia CT head no acute IC pathology , moderate pansinusitis initial CXR with R infiltrate Venous Duplex + Avina cyst L popliteal ankle X ray negative for acute bony trauma CT C/A/P noted CT chest: Pulmonary bi-basal atelectasis. Superimposed pneumonia not excludable. Pulmonary bi-basal interstitial infiltrates, nonspecific, acuity indeterminate. Moderate bi-basal pleural effusions, nonspecific CT A/P - Mild dilation of bile ducts without obvious obstructive etiology, they be secondary to previous cholecystectomy. . Pneumobilia may be secondary to previous enterotomy. Ascending cholangitis with gas-forming organism not excludable. Unlikely ascending cholangitis given benign abdominal exam, normal LFT, leukocytosis trending down CT neck - Bilateral maxillary sinusitis and mastoiditis, likely acute No other evidence of acute cervical pathology, with limitation as described anemia workup with low iron and high ferritin, stool OB negative monitor HH, stable, transfuse prn with goal to keep HgB above 7 HH at baseline PT/OT dc today home with HH services for IV abx as recommended by ID case discussed and evaluated by supervising physician Subjective Allergies: Coded Allergies: DEMECLOCYCLINE (Verified Allergy, Unknown, 12/29/10) Subjective leukocytosis trending down, afebrile Objective Last 24 Hour Vital Signs Date Time Temp Pulse Resp B/P Pulse Ox O2 Delivery O2 Flow Rate FiO2 07/12/17 04:20 97.5 74 19 136/61 Nasal Cannula 07/12/17 01:25 98.6 07/12/17 00:06 98.6 85 19 155/65 96 Nasal Cannula 07/11/17 23:56 97 Nasal Cannula 2.0 97 07/11/17 23:56 Nasal Cannula 2.0 28 07/11/17 20:00 98.6 73 19 147/57 96 Nasal Cannula 07/11/17 16:00 98.2 69 18 155/65 96 Nasal Cannula 2.0 07/11/17 11:57 98.1 72 18 153/65 97 Nasal Cannula 07/11/17 08:00 97.2 65 17 110/65 96 Nasal Cannula Intake and Output 07/11/17 07/12/17 19:00 07:00 Intake Total 860 ml 1042 ml Balance 860 ml 1042 ml Intake Oral 360 ml 420 ml IV Total 500 ml 622 ml # Voids 3 4 # Bowel Movements 2 General Appearance: no acute distress, cachetic, other - frail elderly female HEENT: normocephalic, atraumatic, anicteric, mucous membranes moist Respiratory/Chest: lungs clear - with moderate air exchange , no respiratory distress, no accessory muscle use Cardiovascular: normal rate, regular rhythm Abdomen: soft, non tender, non distended Genitourinary: normal external genitalia Extremities: no edema, pedal pulses normal Neurologic/Psychiatric: abnormal gait - unsteady , alert, oriented x 3, responsive Musculoskeletal: atrophy - BLE Laboratory Tests 07/11/17 19:30: White Blood Count 20.1H, Red Blood Count 3.24L, Hemoglobin 10.3L, Hematocrit 29.7L, Mean Corpuscular Volume 92, Mean Corpuscular Hemoglobin 31.8H, Mean Corpuscular Hemoglobin Concent 34.7, Red Cell Distribution Width 11.8, Platelet Count 223, Mean Platelet Volume 9.5, Neutrophils (%) (Auto) 81.6H, Lymphocytes ( %) (Auto) 4.5L, Monocytes (%) (Auto) 12.3H, Eosinophils (%) (Auto) 0.3, Basophils (%) (Auto) 1.3, Lactate Dehydrogenase 448H 07/12/17 06:05: White Blood Count [Pending], Red Blood Count [Pending], Hemoglobin [Pending], Hematocrit [Pending], Mean Corpuscular Volume [Pending], Mean Corpuscular Hemoglobin [Pending], Mean Corpuscular Hemoglobin Concent [Pending], Red Cell Distribution Width [Pending], Platelet Count [Pending], Mean Platelet Volume [ Pending], Neutrophils (%) (Auto) [Pending], Lymphocytes (%) (Auto) [Pending], Monocytes (%) (Auto) [Pending], Eosinophils (%) (Auto) [Pending], Basophils (%) (Auto) [Pending], Erythrocyte Sedimentation Rate [Pending], Sodium Level [ Pending], Potassium Level [Pending], Chloride Level [Pending], Carbon Dioxide Level [Pending], Blood Urea Nitrogen [Pending], Creatinine [Pending], Estimat Glomerular Filtration Rate [Pending], Glucose Level [Pending], Calcium Level [ Pending], Phosphorus Level [Pending], Magnesium Level [Pending], Ferritin [ Pending], Total Bilirubin [Pending], Aspartate Amino Transf (AST/SGOT) [Pending] , Alanine Aminotransferase (ALT/SGPT) [Pending], Alkaline Phosphatase [Pending] , C-Reactive Protein, Quantitative [Pending], Total Protein [Pending], Albumin [ Pending], Globulin [Pending] Current Medications Medications (Trade) Dose Ordered Sig/Art Route PRN Reason Start Time Stop Time Status Last Admin Dose Admin Acetaminophen (Tylenol) 650 mg Q4H PRN ORAL Mild Pain/Temp > 100.5 07/07/17 17:00 08/06/17 16:59 07/12/17 00:26 Cefepime HCl/ Dextrose (Maxipime/D5W) 110 ml @ 220 mls/hr Q24HRS IV 07/05/17 20:00 07/12/17 19:59 07/11/17 21:17 Dextrose (Dextrose 50%) STAT PRN IV Hypoglycemia 07/04/17 14:45 08/03/17 14:44 Heparin Sodium (Porcine) (Heparin 5000 units/ml) 5,000 units EVERY 12 HOURS SUBQ 07/04/17 21:00 08/03/17 20:59 07/11/17 21:33 Menthol/Methyl Salicylate (Bengay) 1 applic FOUR TIMES A DAY TOPIC 07/10/17 18:30 08/09/17 18:29 07/11/17 21:36 Metronidazole (Flagyl) 500 mg Q8HR ORAL 07/11/17 22:00 07/17/17 21:59 07/12/17 05:37 Ondansetron HCl (Zofran) 4 mg Q6H PRN IVP Nausea & Vomiting 07/04/17 14:45 08/03/17 14:44 Patient Own Medication 1 ea 1 ea BID BOTH EYES 07/05/17 18:00 08/04/17 17:59 07/11/17 18:28 Polyethylene Glycol (Miralax) 17 gm DAILYPRN PRN ORAL Constipation 07/04/17 14:45 08/03/17 14:44 Sodium Chloride (0.45% NS 1000ml) 1,000 ml @ 50 mls/hr Q20H IV 07/04/17 17:00 08/03/17 16:59 07/12/17 05:00 Timolol Maleate (Timoptic 0.5% Op Soln) 1 drop TWICE A DAY BOTH EYES 07/05/17 13:30 08/04/17 13:29 07/11/17 18:28 Tobramycin/ Dexamethasone (Tobradex Opth Susp) 1 drop TID BOTH EYES 07/05/17 13:30 08/04/17 13:29 07/11/17 18:28 Serge (Alba Kim NP Jul 12, 2017 07:32
[2017-07-12 07:43] LABS: ALANINE AMINOTRANSFERASE 16 U/L (3-33); ALBUMIN/GLOBULIN RATIO 1.2 (1.0-2.7); ANION GAP 12 (5-15); ASPARTATE AMINO TRANSFERASE 16 U/L (5-40); CALCIUM 8.7 mg/dL (8.6-10.2); CARBON DIOXIDE 24 mEQ/L (20-30); CHLORIDE 101 mEQ/L (98-107); CREATININE 0.5 mg/dL (0.5-0.9); CRP QUANT 8.5 mg/dL (< 0.5); HEMOLYSIS 0; PHOSPHORUS 3.2 mg/dL (2.5-4.8); POTASSIUM 3.4 mEQ/L (3.4-4.9); SODIUM 137 mEQ/L (135-145); TOTAL PROTEIN 6.1 g/dL (6.6-8.7)
[2017-07-12 08:00] VITALS: BP 143/55
[2017-07-12] MEDS: OPTH BOTH EYES SCH ×2 (08:18→18:00)
[2017-07-12] MEDS: AZOPT 1% BOTH EYES SCH ×2 (08:18→18:00)
[2017-07-12] MEDS: Tobradex Opth Susp 2.5ml BOTH EYES SCH ×3 (08:18→18:00)
[2017-07-12] MEDS: Timolol 0.5% Op Soln 2.5ml BOTH EYES SCH ×2 (08:18→18:00)
[2017-07-12] MEDS: Analgesic Balm 15gm TOPIC SCH ×3 (08:18→18:00)
[2017-07-12] MEDS: Heparin 5000 units/ml inj SUBQ SCH (08:25)
[2017-07-12 08:53] LABS: ERYTHROCYTE SEDIMENTATION RATE 88 MM/HR (0-42)
--- NOTE | 2017-07-12 10:38 | Diagnostic Imaging Report ---
Indications: Neck pain, sepsis, history of non-Hodgkin's lymphoma Technique: Continuous helical CT imaging of the neck from the base of the skull through the aortic arch was performed with automatic exposure control following intravenous administration of nonionic iodine contrast, on a Siemens sensation [address] scanner. Axial, coronal, and sagittal images were reconstructed at 3 mm slice thickness. CTDI volume(s): 8, 49, 13, 20, 14 mGy Total DLP: 1852 mGy-cm (Includes CT thorax, abdomen, pelvis) Findings: Comparison: None Visualized portions of brain: Unremarkable. Mastoid air cells: Bilateral subtotal opacification with air-fluid levels Paranasal sinuses: Subtotal opacification of bilateral maxillary sinuses with air-fluid levels.. Nasopharynx: Unremarkable. Oral cavity: Multiple images extensively degraded by artifact from metallic dental fillings. Unobscured anatomy unremarkable.. Oropharynx: Unremarkable. Epiglottis: Unremarkable. False vocal cords: Unremarkable. True vocal cords: Unremarkable. Subglottic airway: Unremarkable. Prevertebral soft tissues: Unremarkable. Bilateral parapharyngeal soft tissues: Partially obscured by artifact from metallic dental fillings. Unobscured anatomy unremarkable.. Lymph nodes: Normal size and configuration bilaterally. No enlargement. Superficial soft tissues: Unremarkable. Parotid glands: Unremarkable. Submandibular glands: Unremarkable. Thyroid gland: Unremarkable. Vascular structures: Scattered calcified arterial mural plaquing. No obvious flow-limiting stenosis or occlusion.. Skeletal structures: Multilevel disc space narrowing with marginal osteophyte formation and facet sclerosis and hypertrophy throughout cervical spine. Suggestion of multilevel spinal stenosis, neural foraminal narrowing.. IMPRESSION: Bilateral maxillary sinusitis and mastoiditis, likely acute No other evidence of acute cervical pathology, with limitation as described Arteriosclerosis without obvious flow-limiting abnormality Cervical degenerative spondylosis. Neural impingement not excludable. Consider MRI for further evaluation as clinically indicated. The CT scanner at [facility] is accredited by the [employer] and the scans are performed using protocols designed to limit radiation exposure to as low as reasonably achievable to attain images of sufficient resolution adequate for diagnostic evaluation.
[2017-07-12 11:53] VITALS: BP 144/66
--- NOTE | 2017-07-12 14:15 | Infectious Diseases Prog Note ---
Assessment/Plan Assessment/Plan Assessment: RLL pneumonia, sputum cx 07/05 neg, blood cx 07/04 negative NEUTOPHILIC GRANULOCYTOSIS w/ toxic granules; decreased from 39.6 to 21.1 to 16 on abx for pneumonia Exam reassuring CT c/a/p not diagnostic, but negative for abscess, and does have some pneumobilia s/p cholecystectomy, but her exam and LFTs are not consistent with ascending cholangitis now that leukemia has been excluded, and CT w/o focal infectious process other than pneumonia which she is responding to, still would like to r/o C diff but with her constipation it hasn't been sent. will start empiric trial of flagyl. Pansinusitis with mastoiditis (mild) blood cx 07/04/17 negative sputum cx 07/05/17 normal oral carol NHL in remission s/p r/o CLL vs CNL, peripheral flow cytometry was negative Conjunctivitis, resolved Left Knee guerrero's cyst hypoalbuminemia hypokalemia mild elevated alk phos Elevated ESR (92mm/hr) in the setting of pneumonia Plan: Continue Cefepime 2gm IV q24hr D#8 of 10 Continue flagyl 500mg PO q8hr D#2 of 7 check for C. difficile Leukocytosis resolving albeit slowly. okay for dispo on continued abx from ID standpoint. Subjective Constitutional: Reports: no symptoms Gastrointestinal/Abdominal: Reports: nausea Genitourinary: Reports: no symptoms Allergies: Coded Allergies: DEMECLOCYCLINE (Verified Allergy, Unknown, 12/29/10) Objective Vital Signs Last 24 Hour Vital Signs Date Time Temp Pulse Resp B/P Pulse Ox O2 Delivery O2 Flow Rate FiO2 07/12/17 11:53 97.3 74 19 144/66 96 Nasal Cannula 2.0 07/12/17 09:21 97.5 07/12/17 08:00 97.3 74 18 143/55 96 Nasal Cannula 2.0 07/12/17 04:20 97.5 74 19 136/61 Nasal Cannula 07/12/17 00:06 98.6 85 19 155/65 96 Nasal Cannula 07/11/17 23:56 97 Nasal Cannula 2.0 97 07/11/17 23:56 Nasal Cannula 2.0 28 07/11/17 20:00 98.6 73 19 147/57 96 Nasal Cannula 8/17/17 16:00 98.2 69 18 155/65 96 Nasal Cannula 2.0 Height (Feet): 5 Height (Inches): 4.00 Weight (Pounds): 130 Objective General Appearance: no acute distress HEENT: mucous membranes moist Respiratory/Chest: lungs clear Cardiovascular: normal rate Abdomen: soft, non tender Extremities: no edema Neurologic/Psychiatric: alert, oriented x 3, responsive Laboratory Tests Test 07/11/17 19:30 07/12/17 06:05 White Blood Count 20.1 K/UL (4.8-10.8) H 16.6 K/UL (4.8-10.8) H Red Blood Count 3.24 M/UL (4.20-5.40) L 3.18 M/UL (4.20-5.40) L Hemoglobin 10.3 G/DL (12.0-16.0) L 10.0 G/DL (12.0-16.0) L Hematocrit 29.7 % (37.0-47.0) L 29.3 % (37.0-47.0) L Mean Corpuscular Volume 92 FL (80-99) 92 FL (80-99) Mean Corpuscular Hemoglobin 31.8 PG (27.0-31.0) H 31.5 PG (27.0-31.0) H Mean Corpuscular Hemoglobin Concent 34.7 G/DL (32.0-36.0) 34.1 G/DL (32.0-36.0) Red Cell Distribution Width 11.8 % (11.6-14.8) 11.8 % (11.6-14.8) Platelet Count 223 K/UL (150-450) 211 K/UL (150-450) Mean Platelet Volume 9.5 FL (6.5-10.1) 9.1 FL (6.5-10.1) Neutrophils (%) (Auto) 81.6 % (45.0-75.0) H 79.7 % (45.0-75.0) H Lymphocytes (%) (Auto) 4.5 % (20.0-45.0) L 5.4 % (20.0-45.0) L Monocytes (%) (Auto) 12.3 % (1.0-10.0) H 12.9 % (1.0-10.0) H Eosinophils (%) (Auto) 0.3 % (0.0-3.0) 0.4 % (0.0-3.0) Basophils (%) (Auto) 1.3 % (0.0-2.0) 1.6 % (0.0-2.0) Lactate Dehydrogenase 448 U/L (135-230) H Erythrocyte Sedimentation Rate 88 MM/HR (0-42) H Sodium Level 137 mEQ/L (135-145) Potassium Level 3.4 mEQ/L (3.4-4.9) Chloride Level 101 mEQ/L (98-107) Carbon Dioxide Level 24 mEQ/L (20-30) Anion Gap 12 (5-15) Blood Urea Nitrogen 7 mg/dL (7-23) Creatinine 0.5 mg/dL (0.5-0.9) Estimat Glomerular Filtration Rate mL/min (>60) Glucose Level 91 mg/dL (74-106) Calcium Level 8.7 mg/dL (8.6-10.2) Phosphorus Level 3.2 mg/dL (2.5-4.8) Magnesium Level 2.0 mg/dL (1.7-2.5) Ferritin 726 ng/mL (13-150) H Total Bilirubin 0.7 mg/dL (0.0-1.2) Aspartate Amino Transf (AST/SGOT) 16 U/L (5-40) Alanine Aminotransferase (ALT/SGPT) 16 U/L (3-33) Alkaline Phosphatase 147 U/L (35-104) H C-Reactive Protein, Quantitative 8.5 mg/dL (< 0.5) H Total Protein 6.1 g/dL (6.6-8.7) #L Albumin 3.4 g/dL (3.5-5.2) L Globulin 2.7 g/dL Albumin/Globulin Ratio 1.2 (1.0-2.7) Current Medications Medications (Trade) Dose Ordered Sig/Art Route PRN Reason Start Time Stop Time Status Last Admin Dose Admin Acetaminophen (Tylenol) 650 mg Q4H PRN ORAL Mild Pain/Temp > 100.5 07/07/17 17:00 08/06/17 16:59 07/12/17 08:22 Cefepime HCl/ Dextrose (Maxipime/D5W) 110 ml @ 220 mls/hr Q24HRS IV 07/05/17 20:00 07/12/17 19:59 07/11/17 21:17 Dextrose (Dextrose 50%) STAT PRN IV Hypoglycemia 07/04/17 14:45 08/03/17 14:44 Heparin Sodium (Porcine) (Heparin 5000 units/ml) 5,000 units EVERY 12 HOURS SUBQ 07/04/17 21:00 08/03/17 20:59 07/12/17 08:25 Menthol/Methyl Salicylate (Bengay) 1 applic FOUR TIMES A DAY TOPIC 07/10/17 18:30 08/09/17 18:29 07/12/17 13:07 Metronidazole (Flagyl) 500 mg Q8HR ORAL 07/11/17 22:00 07/17/17 21:59 07/12/17 13:07 Ondansetron HCl (Zofran) 4 mg Q6H PRN IVP Nausea & Vomiting 07/04/17 14:45 08/03/17 14:44 Patient Own Medication 1 ea 1 ea BID BOTH EYES 07/05/17 18:00 08/04/17 17:59 07/12/17 08:18 Polyethylene Glycol (Miralax) 17 gm DAILYPRN PRN ORAL Constipation 07/04/17 14:45 08/03/17 14:44 Sodium Chloride (0.45% NS 1000ml) 1,000 ml @ 50 mls/hr Q20H IV 07/04/17 17:00 08/03/17 16:59 07/12/17 05:00 Timolol Maleate (Timoptic 0.5% Op Soln) 1 drop TWICE A DAY BOTH EYES 07/05/17 13:30 08/04/17 13:29 07/12/17 08:18 Tobramycin/ Dexamethasone (Tobradex Opth Susp) 1 drop TID BOTH EYES 07/05/17 13:30 08/04/17 13:29 07/12/17 13:07 Ricky Schroeder M.D. Jul 12, 2017 14:15
[2017-07-12] MEDS ORDERED: 1/2 NS 1000ml IV ONE (14:52)
[2017-07-12 16:00] VITALS: BP 137/79
--- NOTE | 2017-07-14 22:39 | General Progress Note ---
Assessment/Plan Assessment/Plan 1. Granulocytosis concerning for leukemia such as chronic lymphocytic leukemia versus chronic neutrophilic leukemia --> flow cytometry negative for blasts, no evidence of abnormality --> CT scan was negative for malignancy --> follow up with Dr. Zaheer Aquino, her onc 2. Leukocytosis --> down trending slowly --> ID following, ct abd/pelvis to rule out infection negative --> ct neck shows mastoiditis and sinusitis 3. Anemia, secondary to chronic disease, rule out bleed. Anemia workup ordered. --> ob is negative --> work up reviewed, no evidence of iron or b12 deficiency 4. Right lower lobe infiltrate pneumonia, on antibiotics. Subjective Date patient seen: Jul 12, 2017 Constitutional: Reports: no symptoms HEENT: Reports: no symptoms Cardiovascular: Reports: no symptoms Respiratory: Reports: no symptoms Gastrointestinal/Abdominal: Reports: no symptoms Genitourinary: Reports: no symptoms Neurologic/Psychiatric: Reports: no symptoms Endocrine: Reports: no symptoms Hematologic/Lymphatic: Reports: no symptoms Allergies: Coded Allergies: DEMECLOCYCLINE (Verified Allergy, Unknown, 12/29/10) Subjective NAD Objective Height (Feet): 5 Height (Inches): 4.00 Weight (Pounds): 130 General Appearance: no apparent distress EENT: normal ENT inspection Neck: normal inspection Respiratory/Chest: no accessory muscle use Abdomen: no organomegaly Skin: warm/dry Adrián Barrios Jul 14, 2017 22:39
--- NOTE | 2017-07-15 10:40 | Discharge Summary ---
Discharge Summary Hospital Course Date of Admission Jul 04, 2017 at 12:39 Date of Discharge Jul 12, 2017 at 18:50 Admitting Diagnosis sepsis, pneumonia HPI Radha Akbar is a 87 year old female who was admitted on Jul 04, 2017 at 12: 39 for Sepsis, Pneumonia Hospital Course dc summary #[id number] Discharge Medications New Medications: Cefepime Hcl/D5w (Cefepime-Dextrose 2 Gm/50 Ml) 2 Gm/50 Ml Piggyback 2 GM IVPB Q24H for 7 Days, BAG Metronidazole* (Flagyl*) 500 Mg Tablet 500 MG ORAL THREE TIMES A DAY for 7 Days, #21 TAB Discharge Discharge Disposition Patient was discharged to Home with Home Health(06) Discharge Diagnoses: Serge ([facility])Alba NP Jul 15, 2017 10:40
--- NOTE | 2017-07-16 10:31 | Discharge Summary 2 SIG ---
DATE OF ADMISSION: 07/04/2017 DATE OF DISCHARGE: 07/12/2017 The patient admitted under Dr. Pal. REASON FOR ADMISSION: This is an 87-year-old female with a history of non-Hodgkin lymphoma, presented to emergency department with complaint of fever and cough. Chest x-ray revealed right lower lobe infiltrate. The patient was admitted for further management. White blood count was 39.6 with neutrophils of 85%. ADMITTING DIAGNOSES: 1. Sepsis. 2. Pneumonia. 3. Pansinusitis. 4. History of non-Hodgkin lymphoma. HOSPITAL STAY: The patient was admitted. The patient was started on empiric antibiotic. Sputum culture negative. Blood culture negative. ID consult was requested. Supplemental oxygen provided as needed to keep saturation above 92%. Pulmonary toilet provided. Antibiotic was given as per ID recommendation. Flow cytometry was negative while working out to rule out leukemia. The patient was started on empiric Flagyl, possibly cover for C. diff. Unable to obtain stool C. diff since the patient was constipated at this time. CT of the head revealed no acute intracranial pathology, but shows moderate pansinusitis. Again, to reiterate, initial chest x-ray revealed right upper lobe infiltrate. Venous duplex of bilateral lower extremity revealed Avina's cyst in the left popliteal. Ankle x-ray was negative for acute bony trauma. CT of the chest showed pulmonary bibasilar atelectasis, possible superimposed pneumonia, pulmonary bibasilar interstitial infiltrate, and moderate bibasilar pleural effusion. CT of the abdomen and pelvis revealed mild dilatation of bile duct without obvious obstructive etiology. Pneumobilia may be secondary to previous enterotomy, ascending cholangitis with gas-forming organism was not excludable. CT of the neck revealed bilateral maxillary sinusitis and mastoiditis, likely acute. Per ID doctor, CT of the chest, abdomen, and pelvis was negative for abscess. The patient may have some pneumobilia after cholecystectomy, but her exam and LFT were not consistent with ascending cholangitis. Hemoglobin and hematocrit were closely monitored, remained on the baseline. Anemia workup revealed low iron and high ferritin. Stool OB was negative. Hemoglobin and hematocrit were closely monitored with the goal to keep hemoglobin above 7. Hemoglobin and hematocrit remained in the baseline with hemoglobin upon discharge 10 and hematocrit 29.3. The patient was working with physical and occupational therapy. The patient was stable for discharge home with home health services for IV antibiotic to complete the course as per ID recommendation. Blood culture negative. DISCHARGE DIAGNOSES: 1. Sepsis. 2. Right lower lobe pneumonia. 3. Pansinusitis. 4. Non-Hodgkin lymphoma, in remission. 5. Conjunctivitis, resolved. 6. Avina's cyst, left popliteal. 7. Anemia of chronic disease. 8. Ankle sprain. DISCHARGE MEDICATIONS: See medication reconciliation list. DISCHARGE INSTRUCTIONS: The patient was discharged home with home health services. Follow up with the primary medical doctor. Rosalie Pal M.D. I have been assigned to dictate discharge summary on this account and I was not involved in the patient's management. [facility] NZ[facility] DR: JENNIFER JOB#: [id number] CC:
== END 2017-07-12 18:50 | disposition home health service (06) | DRG 871 ==
LOC: EMR 11:00 → 4W 12:39 → EDBEDREQ 14:44 → EDBEDREQSVC 16:27 → 4W 16:42
DX: A41.9 Sepsis, unspecified organism (principal); J18.9 Pneumonia, unspecified organism; E88.09 Other disorders of plasma-protein metabolism, not elsewhere classified; D70.8 Other neutropenia; D63.8 Anemia in other chronic diseases classified elsewhere; H10.9 Unspecified conjunctivitis; E87.6 Hypokalemia; S93.402A Sprain of unspecified ligament of left ankle, initial encounter; J32.4 Chronic pansinusitis; Z85.72 Personal history of non-Hodgkin lymphomas; Z96.649 Presence of unspecified artificial hip joint; R26.2 Difficulty in walking, not elsewhere classified; Z88.8 Allergy status to other drugs, medicaments and biological substances; M71.22 Synovial cyst of popliteal space [Baker], left knee; X58.XXXA Exposure to other specified factors, initial encounter; H91.93 Unspecified hearing loss, bilateral
CPT/HCPCS: 36415; 70450; 70491; 71010; 71260; 74177; 80053; 80069; 81003; 82248; 82270; 82550; 82553; 82607; 82728; 82746; 83540; 83550; 83605; 83615; 83735; 83921; 84100; 84443; 84484; 84550; 85007; 85025; 85044; 85060; 85384; 85610; 85651; 85730; 86140; 87040; 87070; 87205; 93005; 93970; 94760

== ENCOUNTER 2018-11-26 13:58 | Inpatient (IN) | payer MEDICARE ==
[2018-11-26] VITALS (10 sets, daily range): BP systolic 114–132; BP diastolic 43–58
[~2018-11-26] VITALS: Ht 165.1 cm; Wt 47.6 kg
[~2018-11-26 13:58] MED LIST: BETIMOL5 M2 OP; CEFEPIME-D2 GM/50 ML IVPB; FAMOTIDINE20 MG ORAL; FISH OIL CAP1000 MG ORAL; METRONIDAZOLE500 MG ORAL; PATADAY2.5 ML OP; VITAMIN D400 INTLU ORAL
--- NOTE | 2018-11-26 13:58 | NUR ---
ED Nurse Note: PT BROUGHT IN BY AMBULANCE FROM HOME DUE TO GROUND LEVEL FALL. PT C/O RIGHT SIDED HIP PAIN 05/04 DESCRIBED ACHING. PT DENIES HEAD TRAUMA. LIMITED ROM OF RIGHT LOWER EXTREMITIY. CIRCULATION AND SENSATION INTACT AND CAP REFILL <3 SECONDS.
[2018-11-26] MEDS ORDERED: Morphine Sulfate 4mg/ml Inj (IV/IM USE ONLY) IVP ONE (14:15)
[2018-11-26] MEDS ORDERED: Sodium Chloride 500ML 550 ML IV SCH (14:15)
--- NOTE | 2018-11-26 14:52 | Emergency Room Report ---
History of Present Illness General Chief Complaint: Lower Extremity Injury Source: Patient, EMS Present Illness HPI Patient sustained a ground-level fall. She hit her right hip. She's unable to ambulate after that. There is no loss of consciousness. States that she's not moving the pain is minimal but when she tries to stand or move the hip the pain is quite severe. Pain rated 6/10 and aching. Not radiating No fevers, chills, chest pain, palpitations, nausea, vomiting, diarrhea, dysuria , abdominal pain, shortness of breath, depression, visual changes, headache. Previously treated for pneumonia Allergies: Coded Allergies: DEMECLOCYCLINE (Verified Allergy, Unknown, 12/29/10) Patient History Past Medical History: see triage record Past Surgical History: other - Left hip replacement Social History: Denies: smoking, alcohol use, drug use Social History Narrative Sister Now: No Reviewed Nursing Documentation: PMH: Agreed; PSxH: Agreed Nursing Documentation-PMH Hx Cardiac Problems: No Hx Cancer: No Hx Gastrointestinal Problems: No Hx Neurological Problems: No Review of Systems All Other Systems: negative except mentioned in HPI Physical Exam Vital Signs Date Time Temp Pulse Resp B/P (MAP) Pulse Ox O2 Delivery O2 Flow Rate FiO2 11/26/18 13:52 98.1 90 15 226/94 100 Room Air Sp02 EP Interpretation: reviewed, normal General Appearance: well appearing, no apparent distress, GCS 15 Head: normocephalic Eyes: bilateral eye normal inspection, bilateral eye PERRL ENT: moist mucus membranes Neck: supple, no bony tend Respiratory: lungs clear, normal breath sounds Cardiovascular #1: regular rate, rhythm Cardiovascular #2: 2+ radial (R) Gastrointestinal: normal inspection, normal bowel sounds, non tender, no mass, non-distended Musculoskeletal: back normal, pelvis stable, tender - To palpation right hip. Any movement of right leg causing pain. Shortening and external rotation Neurologic: alert, oriented x3, motor strength/tone normal, DTRs symmetric, sensory intact, speech normal Psychiatric: mood/affect normal Skin: normal inspection, warm/dry Medical Decision Making Diagnostic Impression: Primary Impression: Closed right hip fracture Qualified Codes: S72.001A - Fracture of unspecified part of neck of right femur, initial encounter for closed fracture ER Course Patient presents with right hip pain after mechanical fall without loss of consciousness. Differential diagnosis includes fracture, contusion, pelvic fracture amongst others. Evaluation will be with EKG, chest x-ray, hip x-ray, pelvic x-ray and labs. The patient will be treated with gentle IV hydration and analgesia. EKG without injury. Chest x-ray unremarkable. Right hip with intertrochanteric fracture. Pelvic films with left hip replacement and right hip fracture. Labs with elevated white count. CMP unremarkable. Patient improved with analgesia. Presented to Dr. Braxton and Dr. Gibson. Dr. Gibson's plan is to take the patient to surgery. Seen by Dr. Braxton in the emergency department. Laboratory Tests Test 11/26/18 14:59 11/26/18 16:49 White Blood Count 16.3 K/UL (4.8-10.8) H Red Blood Count 4.36 M/UL (4.20-5.40) Hemoglobin 13.6 G/DL (12.0-16.0) Hematocrit 40.6 % (37.0-47.0) Mean Corpuscular Volume 93 FL (80-99) Mean Corpuscular Hemoglobin 31.1 PG (27.0-31.0) H Mean Corpuscular Hemoglobin Concent 33.4 G/DL (32.0-36.0) Red Cell Distribution Width 13.0 % (11.6-14.8) Platelet Count 158 K/UL (150-450) Mean Platelet Volume 9.0 FL (6.5-10.1) Neutrophils (%) (Auto) 83.7 % (45.0-75.0) H Lymphocytes (%) (Auto) 6.9 % (20.0-45.0) L Monocytes (%) (Auto) 8.5 % (1.0-10.0) Eosinophils (%) (Auto) 0.1 % (0.0-3.0) Basophils (%) (Auto) 0.8 % (0.0-2.0) Prothrombin Time 10.0 SEC (9.30-11.50) Prothrombin Time INR 0.9 (0.9-1.1) PTT 27 SEC (23-33) Sodium Level 141 MMOL/L (136-145) Potassium Level 3.7 MMOL/L (3.5-5.1) Chloride Level 104 MMOL/L (98-107) Carbon Dioxide Level 25 MMOL/L (21-32) Anion Gap 12 mmol/L (5-15) Blood Urea Nitrogen 15 mg/dL (7-18) Creatinine 0.9 MG/DL (0.55-1.30) Estimate Glomerular Filtration Rate mL/min (>60) Glucose Level 113 MG/DL (74-106) H Calcium Level 9.0 MG/DL (8.5-10.1) Total Bilirubin 1.1 MG/DL (0.2-1.0) H Direct Bilirubin 0.2 MG/DL (0.0-0.3) Aspartate Amino Transferase (AST) 23 U/L (15-37) Alanine Aminotransferase (ALT) 22 U/L (12-78) Alkaline Phosphatase 95 U/L (46-116) Total Protein 6.9 G/DL (6.4-8.2) Albumin 4.3 G/DL (3.4-5.0) Globulin 2.6 g/dL Albumin/Globulin Ratio 1.7 (1.0-2.7) Urine Color Pale yellow Urine Appearance Clear Urine pH 6.5 (4.5-8.0) Urine Specific [place] 1.015 (1.005-1.035) Urine Protein 1+ (NEGATIVE) H Urine Glucose (UA) Negative (NEGATIVE) Urine Ketones Negative (NEGATIVE) Urine Blood 2+ (NEGATIVE) H Urine Nitrite Negative (NEGATIVE) Urine Bilirubin Negative (NEGATIVE) Urine Urobilinogen Normal MG/DL (0.0-1.0) Urine Leukocyte Esterase Negative (NEGATIVE) Urine RBC 0-2 /HPF (0 - 2) Urine WBC 0-2 /HPF (0 - 2) Urine Squamous Epithelial Cells None /LPF (NONE/OCC) Urine Bacteria None /HPF (NONE) EKG Diagnostic Results Rate: normal Rhythm: NSR ST Segments: no acute changes Other Impression left anterior block Rhythm Strip Diag. Results EP Interpretation: yes Rhythm: NSR, no PVC's, no ectopy Chest X-Ray Diagnostic Results Chest X-Ray Diagnostic Results : Chest X-Ray Ordered: Yes # of Views/Limited/Complete: 1 View Indication: Chest Pain Interpretation: no consolidation, no effusion, no pneumothorax Impression: No acute disease Electronically Signed by: Electronically signed by Ricardo King MD Other X-Ray Diagnostic Results Other X-Ray Diagnostic Results #1: X-Ray ordered: Pelvis # of Views/Limited Vs Complete: 1 View Indication: Pain EP Interpretation: Yes Interpretation: no dislocation, no soft tissue swelling, other - fx R and replacement L Impression: Other Electronically Signed by: Electronically signed by Ricardo King MD Other X-Ray Diagnostic Results #2: X-Ray ordered: R hip # of Views/Limited Vs Complete: 2 View Indication: Pain EP Interpretation: Yes Interpretation: no dislocation, no soft tissue swelling, other - fx Impression: Other Electronically Signed by: Electronically signed by Ricardo King MD Last Vital Signs Date Time Temp Pulse Resp B/P (MAP) Pulse Ox O2 Delivery O2 Flow Rate FiO2 11/26/18 13:52 98.1 90 15 226/94 100 Room Air Status: improved Disposition: ADMITTED INPATIENT Condition: Serious Ricardo King MD Nov 26, 2018 14:52
[2018-11-26 15:07] LABS: BASOPHILS % (AUTO) 0.8 % (0.0-2.0); EOSINOPHILS % (AUTO) 0.1 % (0.0-3.0); HEMATOCRIT 40.6 % (37.0-47.0); HEMOGLOBIN 13.6 G/DL (12.0-16.0); LYMPHOCYTES % (AUTO) 6.9 % (20.0-45.0); MEAN CORPUSCULAR VOLUME 93 FL (80-99); MONOCYTES % (AUTO) 8.5 % (1.0-10.0); NEUTROPHILS % (AUTO) 83.7 % (45.0-75.0); PLATELET COUNT 158 K/UL (150-450); RED BLOOD COUNT 4.36 M/UL (4.20-5.40); WHITE BLOOD COUNT 16.3 K/UL (4.8-10.8)
[2018-11-26 15:17] LABS: INR 0.9 (0.9-1.1)
[2018-11-26 15:19] LABS: ANION GAP 12 mmol/L (5-15); BLOOD UREA NITROGEN 15 mg/dL (7-18); CARBON DIOXIDE 25 MMOL/L (21-32); CHLORIDE 104 MMOL/L (98-107); CREATININE 0.9 MG/DL (0.55-1.30); POTASSIUM 3.7 MMOL/L (3.5-5.1); SODIUM 141 MMOL/L (136-145)
--- NOTE | 2018-11-26 15:28 | Diagnostic Imaging Report ---
Indication: Dyspnea Comparison: 07/10/2017 A single view chest radiograph was obtained. Findings: Cardiomediastinal appearance is within normal limits for age. Aorta is calcified. The lungs are clear. Pulmonary vascularity is appropriate. The diaphragmatic contour is smooth and costophrenic angles are sharp. No pleural effusions are identified. The bones are osteopenic. Impression: No acute findings
[2018-11-26 15:31] LABS: ALANINE AMINOTRANSFERASE 22 U/L (12-78); ALBUMIN 4.3 G/DL (3.4-5.0); ALBUMIN/GLOBULIN RATIO 1.7 (1.0-2.7); ALKALINE PHOSPHATASE 95 U/L (46-116); ASPARTATE AMINO TRANSFERASE 23 U/L (15-37); BILIRUBIN,TOTAL 1.1 MG/DL (0.2-1.0)
--- NOTE | 2018-11-26 15:32 | Diagnostic Imaging Report ---
Indications: hip pain Findings: Two views of the right hip and AP pelvis were obtained. There is an acute intertrochanteric fracture of the right hip with mild impaction and varus angulation. Bones are osteopenic. A left hip hemiarthroplasty noted. Sacrum is obscured by bowel gas. Femoral artery calcifications are present. IMPRESSION: Acute intratrochanteric fracture of the right hip
[2018-11-26] MEDS ORDERED: AZOPT10 ML OP (15:37)
[2018-11-26] MEDS ORDERED: ATORVASTATIN CA20 MG ORAL (15:37)
[2018-11-26 15:38] LABS: BILIRUBIN,DIRECT 0.2 MG/DL (0.0-0.3)
--- NOTE | 2018-11-26 16:04 | NUR ---
ED Nurse Note: [facility] CALLED FOR PT TRANSFER. PER MS RN, PT WILL BE GOING TO OR FROM ED AND THEN TO [facility] UNIT FOLLOWING SURGERY. CALLED [facility] WHO CONFIRMED THAT PT WILL GO FROM ER TO OR AND THEN FROM OR TO MS UNIT. [facility] UN[facility] CALLED AGAIN TO GIVE REPORT. REPORT GIVEN TO JAYASHREE WESLEY WHO IS AWARE PT WILL BE TRANSFERRED AFTER SURGERY. WILL CONTINUE TO MONITOR PT IN ED UNTIL PT IS TAKEN TO OR.
--- NOTE | 2018-11-26 16:08 | NUR ---
Ad moreland in ED - 11/26/18 at 1611 by INDRA ED Nurse Note: SURGEON AT BEDSIDE.
--- NOTE | 2018-11-26 16:08 | NUR ---
ED Nurse Note: DR. MCGINNIS AT BEDSIDE
--- NOTE | 2018-11-26 16:43 | History & Physical ---
History and Physical History & Physicial HP dictated # [id number] Jules Braxton MD Nov 26, 2018 16:43
[2018-11-26] MEDS ORDERED: Morphine Sulfate 4mg/ml Inj (IV/IM USE ONLY) IVP PRN ×3 (16:45→17:45)
[2018-11-26] MEDS ORDERED: Zolpidem 5mg tab ORAL PRN (16:45)
[2018-11-26] MEDS ORDERED: Morphine Sulfate 2mg/ml Inj IVP PRN (16:45)
[2018-11-26] MEDS ORDERED: Milk of Magnesia 30ml Ud ORAL PRN ×2 (16:45→17:45)
[2018-11-26 16:56] LABS: APPEARANCE,URINE CLEAR; BILIRUBIN, URINE NEGATIVE (NEGATIVE); COLOR,URINE PALE YELLOW; GLUCOSE, URINE (UA) NEGATIVE (NEGATIVE); KETONES,URINE NEGATIVE (NEGATIVE); LEUKOCYTE ESTERASE ,URINE NEGATIVE (NEGATIVE); NITRITE,URINE NEGATIVE (NEGATIVE); PH,URINE 6.5 (4.5-8.0); PROTEIN,URINE 1+ (NEGATIVE); UROBILINOGEN,URINE NORMAL MG/DL (0.0-1.0)
--- NOTE | 2018-11-26 17:15 | History and Physical Report ---
DATE OF ADMISSION: 11/26/2018 CHIEF COMPLAINT: The patient had a ground level fall and sustained right hip fracture. 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 She was in the basement and then she tried to turn and lost her balance. She had a ground level fall and she could not ambulate after that. She was brought into the emergency room and she has been diagnosed with right hip fracture. The patient is being admitted for further care. PAST MEDICAL HISTORY: Includes history of non-Hodgkin lymphoma, which is in remission, history of glaucoma. She is status post pancreatitis and gallbladder surgery. MEDICATIONS: Reviewed in the EMR. ALLERGIES: Reported to demeclocycline. SOCIAL HISTORY: Remote history of smoking when she was in 20s. No history of alcohol abuse. REVIEW OF SYSTEMS: Noncontributory. PHYSICAL EXAMINATION: GENERAL: The patient is an elderly female, in no acute distress. VITAL SIGNS: Blood pressure 226/94, pulse is 90, temperature 98.1, respiratory rate is 15. HEENT: [place] conjunctivae. Anicteric sclerae. NECK: Supple. LUNGS: Clear to auscultation. HEART: S1 and S2 without murmurs or rubs. ABDOMEN: Soft and nontender. EXTREMITIES: No cyanosis or edema. LABORATORY FINDINGS: CBC shows a WBC of 16,300, hematocrit 40.6, hemoglobin is 13.6, platelets 158,000. The chemistry panel shows serum sodium 141, potassium 3.7, chloride 104, BUN is 15, creatinine 0.9, and blood sugar is 113. Total bilirubin is 1.1. ASSESSMENT: This is an 88-year-old female, who was admitted after a ground level fall sustaining right hip fracture. The patient has history of non-Hodgkin lymphoma, which is in remission, history of glaucoma. Her blood pressure is high this is in absence of previous history of hypertension. PLAN: The patient will be admitted to med/surg. Orthopedic consultation was consulted. The patient will be on IV fluid. NPO at this time. Cardiology clearance will be obtained. The patient will likely need to have at least an echocardiogram to look for any wall motion abnormality. In terms of blood pressure control, put the patient on clonidine at this point and hopefully with pain medication the patient's blood pressure would drop. If not then longer acting medication will be used. Thank you very much. Jules Braxton M.D. DR: Carlo JOB#: [id number] CC:
--- NOTE | 2018-11-26 17:15 | NUR ---
ED Nurse Note: SURGEON AT BEDSIDE.
[2018-11-26] MEDS ORDERED: Bupivacaine 0.5% Inj 30 ml vial INJ ONE (17:39)
[2018-11-26] MEDS ORDERED: cloNIDine 1000mcg/10ml inj ONE (17:39)
[2018-11-26] MEDS ORDERED: Propofol 200mg/20ml IV ONE (17:42)
[2018-11-26] MEDS ORDERED: Sodium Chloride 10ml vial INJ ONE (17:42)
--- NOTE | 2018-11-26 17:42 | Pre-Procedure Note/Attestation ---
Pre-Procedure Note/Attestation Complete Prior to Procedure Planned Procedure: right Procedure Narrative: Right hip nailing Indications for Procedure Pre-Operative Diagnosis: Right hip intertrochanteric fracture Attestation I attest that I discussed the nature of the procedure; its benefits; risks and complications; and alternatives (and the risks and benefits of such alternatives ), prior to the procedure, with the patient (or the patient's legal novelties sales representative). I attest that, if there was a reasonable possibility of needing a blood transfusion, the patient (or the patient's legal novelties sales representative) was given the [facility] standardized written summary, pursuant to the [place] Blood Safety Act ([place] Health and Safety Code # 1645, as amended). I attest that I re-evaluated the patient just prior to the surgery and that there has been no change in the patient's H&P, except as documented below: Ricardo Gibson MD Nov 26, 2018 17:42
[2018-11-26] MEDS ORDERED: Lidocaine 1% Plain 30 ml INJ ONE (17:43)
[2018-11-26] MEDS ORDERED: Midazolam 2mg/2ml Inj ONE (17:44)
[2018-11-26] MEDS ORDERED: Metoclopramide 10mg/2ml Inj IVP ONE (17:45)
[2018-11-26] MEDS ORDERED: EPINEPHrine 1mg/1ml Amp ONE (17:45)
[2018-11-26] MEDS ORDERED: oxyCODONE 5mg IR tab ORAL PRN (17:45)
[2018-11-26] MEDS ORDERED: Norco 5mg/325mg tab ORAL PRN ×2 (17:45→18:00)
[2018-11-26] MEDS ORDERED: D5 1/2NS 1,000 ML IV SCH (17:45)
--- NOTE | 2018-11-26 17:45 | NUR ---
ED Nurse Note: R/B/A EXPLAINED TO PT BY SURGEON. CONSENT FOR SURGERY SIGNED BY PT AND WITNESSED BY JAYASHREE CHADWICK. OR NURSE AT BEDSIDE. SPLUNK CONSULTANT : SISTER ALBA CABA [phone]
[2018-11-26] MEDS ORDERED: LR 1000ml 1,000 ML IVLG SCH (17:56)
--- NOTE | 2018-11-26 17:58 | Anethesia Preoperative Eval ---
Anesthesia Pre-op PMH/ROS General Date of Evaluation: Nov 26, 2018 Anesthesiologist: Judie ASA Score: ASA 3 - Emergency Mallampati Score Class I : Soft palate, uvula, fauces, pillars visible Class II: Soft palate, uvula, fauces visible Class III: Soft palate, base of uvula visible Class IV: Only hard plate visible Mallampati Classification: Class II Surgeon: Arthur Diagnosis: R Hip FX Surgical Procedure: ORIF R Hip Anesthesia History: none Family History: no anesthesia problems Allergies: Coded Allergies: DEMECLOCYCLINE (Verified Allergy, Unknown, 12/29/10) Medications: see eMAR Patient NPO?: Yes Past Medical History Cardiovascular: Reports: HTN, other - HL Pulmonary: Reports: other - [place] HEENT: Reports: glaucoma PSxH Narrative: L Hip Dandre Anesthesia Pre-op Phys. Exam Physician Exam Last Vital Signs Date Time Temp Pulse Resp B/P (MAP) Pulse Ox O2 Delivery O2 Flow Rate FiO2 11/26/18 13:52 98.1 90 15 226/94 100 Room Air Constitutional: NAD Neurologic: CN 2-12 intact Cardiovascular: RRR Respiratory: CTA Gastrointestinal: S/NT/ND Airway Exam Mallampati Score: Class II MO: limited ROM: limited Teeth: missing, intact Anesthesia Pre-op A/P Labs Hematology Test 11/26/18 14:59 White Blood Count 16.3 K/UL (4.8-10.8) H Red Blood Count 4.36 M/UL (4.20-5.40) Hemoglobin 13.6 G/DL (12.0-16.0) Hematocrit 40.6 % (37.0-47.0) Mean Corpuscular Volume 93 FL (80-99) Mean Corpuscular Hemoglobin 31.1 PG (27.0-31.0) H Mean Corpuscular Hemoglobin Concent 33.4 G/DL (32.0-36.0) Red Cell Distribution Width 13.0 % (11.6-14.8) Platelet Count 158 K/UL (150-450) Mean Platelet Volume 9.0 FL (6.5-10.1) Neutrophils (%) (Auto) 83.7 % (45.0-75.0) H Lymphocytes (%) (Auto) 6.9 % (20.0-45.0) L Monocytes (%) (Auto) 8.5 % (1.0-10.0) Eosinophils (%) (Auto) 0.1 % (0.0-3.0) Basophils (%) (Auto) 0.8 % (0.0-2.0) Coagulation Test 11/26/18 14:59 Prothrombin Time 10.0 SEC (9.30-11.50) Prothromb Time International Ratio 0.9 (0.9-1.1) Activated Partial Thromboplast Time 27 SEC (23-33) Chemistry Test 11/26/18 14:59 Sodium Level 141 MMOL/L (136-145) Potassium Level 3.7 MMOL/L (3.5-5.1) Chloride Level 104 MMOL/L (98-107) Carbon Dioxide Level 25 MMOL/L (21-32) Anion Gap 12 mmol/L (5-15) Blood Urea Nitrogen 15 mg/dL (7-18) Creatinine 0.9 MG/DL (0.55-1.30) Estimat Glomerular Filtration Rate mL/min (>60) Glucose Level 113 MG/DL (74-106) H Calcium Level 9.0 MG/DL (8.5-10.1) Total Bilirubin 1.1 MG/DL (0.2-1.0) H Direct Bilirubin 0.2 MG/DL (0.0-0.3) Aspartate Amino Transf (AST/SGOT) 23 U/L (15-37) Alanine Aminotransferase (ALT/SGPT) 22 U/L (12-78) Alkaline Phosphatase 95 U/L (46-116) Total Protein 6.9 G/DL (6.4-8.2) Albumin 4.3 G/DL (3.4-5.0) Globulin 2.6 g/dL Albumin/Globulin Ratio 1.7 (1.0-2.7) Risk Assessment & Plan Assessment: ASA 3E Plan: GA, Spinal, SED Status Change Before Surgery: No Pre-Antibiotics Dru Grams Ancef IV Given Within 1 Hr of Incision: Yes Time Given: 18:06 Celso Dimas MD Nov 26, 2018 17:58
[2018-11-26] MEDS ORDERED: HYDROcodone/Acetamin 7.5/325 tab ORAL PRN (18:00)
[2018-11-26] MEDS ORDERED: Atropine Sulfate 0.4mg/ml inj IVP PRN (18:00)
[2018-11-26] MEDS ORDERED: DiphenhydrAMINE 50mg/ml Inj IVP PRN (18:00)
[2018-11-26] MEDS ORDERED: Midazolam 2mg/2ml Inj IVP PRN (18:00)
[2018-11-26] MEDS ORDERED: Hydromorphone 0.5mg/0.5ml inj IVP PRN (18:00)
[2018-11-26] MEDS ORDERED: fentaNYL 100 mcg/2 mL IV PRN (18:00)
[2018-11-26] MEDS ORDERED: oxyCODONE HCL/Acetaminophen 5/325mg ORAL PRN (18:00)
[2018-11-26] MEDS ORDERED: Meperidine 50mg/ml Inj(FOR RIGORS ONLY) IVP PRN (18:00)
[2018-11-26] MEDS ORDERED: LORazepam Inj 2mg/ml 1ml IV PRN (18:00)
--- NOTE | 2018-11-26 18:00 | NUR ---
ED Nurse Note: PT TAKEN TO OR VIA GURNEY WITH ALL BELONGINGS ACCOMPANIED BY TECH AND OR NURSE.
--- NOTE | 2018-11-26 18:28 | Immediate Post-Op Evaluation ---
Immediate Post-Op Evalulation Immediate Post-Op Evalulation Procedure: ORIF R Hip Date of Evaluation: Nov 26, 2018 Time of Evaluation: 19:27 IV Fluids: 300 LR Blood Products: 0 Estimated Blood Loss: 11 Urinary Output: 0 Blood Pressure Systolic: 126 Blood Pressure Diastolic: 66 Pulse Rate: 81 Respiratory Rate: 16 O2 Sat by Pulse Oximetry: 100 Temperature (Fahrenheit): 87.8 Pain Score (1-10): 1 Nausea: No Vomiting: No Complications 0 Patient Status: awake, reacts, patent, none Hydration Status: adequate Dru Grams Ancef IV Given Within 1 Hr of Incision: Yes Time Given: 18:06 Celso Dimas MD Nov 26, 2018 18:28
--- NOTE | 2018-11-26 18:30 | Consultation ---
DATE OF CONSULTATION: 11/26/2018 ORTHOPEDIC CONSULTATION CONSULTING PHYSICIAN: Ricardo Gibson M.D. REFERRING PHYSICIAN: Dr. Pal. DIAGNOSIS: Right intertrochanteric displaced hip fracture. 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 She sustained the above injury. She was not able to walk and ambulance brought her to the emergency department. PAST MEDICAL HISTORY: Significant for hypercholesterolemia, for which she takes a statin medication. PAST SURGICAL HISTORY: She has had a previous orthopedic surgical intervention in 2010 when she had a hip hemiarthroplasty for displaced femoral neck fracture performed by Dr. Holder. She has had cataract surgery and has a history of glaucoma as well. ALLERGIES: She has no known drug allergies. PHYSICAL EXAMINATION: She is well appearing, in no distress. No manipulative provocative testing was performed on the right lower extremity. Gross neurovascular examination is intact to motor movement. There are no open wounds on the right hip. RADIOGRAPHS: Radiographs of right hip reveal intertrochanteric displaced hip fracture. ASSESSMENT AND PLAN: The patient is an 88-year-old woman who sustained a right intertrochanteric displaced hip fracture. I have recommended hip nailing. We reviewed all risks, benefits, and alternatives to surgery. We will proceed to the operating room when available. Thank you for the opportunity to consult. Ricardo Gibson M.D. DR: TATIANA/CHANCE JOB#: [id number] CC:
--- NOTE | 2018-11-26 19:16 | Brief Operative Note ---
Immediate Post Operative Note Operative Note Pre-op Diagnosis: Right hip intertrochanteric fracture Procedure: Right hip short nailing Post-op Diagnosis: same as pre-op Findings: consistent w/pre-op dx studies Surgeon: Arthur Anesthesiologist: Judie Anesthesia: general, regional Specimen: none Complications: none Condition: stable Fluids: 100 ml Estimated Blood Loss: minimal Drains: none Implant(s) used?: Yes Ricardo Gibson MD Nov 26, 2018 19:16
--- NOTE | 2018-11-26 19:45 | Operative Note - Dictated ---
DATE OF OPERATION: 11/26/2018 SURGEON: Ricardo Gibson M.D. [employer] SUPERVISOR: None. ANESTHESIA: General plus regional. COMPLICATIONS: None. ANTIBIOTICS: Ancef. PREOPERATIVE DIAGNOSIS: Right hip intertrochanteric displaced fracture. POSTOPERATIVE DIAGNOSIS: Right hip intertrochanteric displaced fracture. PROCEDURE PERFORMED: Right hip nailing using a Salud gamma 3 trochanteric 11 x 180 mm x 125 degrees short hip nail with a 90 x 10.5 mm hip screw and a 35 x 5 mm fully threaded distal locking screw. BACKGROUND: The patient slipped and fell. She sustained the above injury. All risks, benefits, and alternatives to surgical intervention were discussed in great detail. Risks included, but were not limited to, bleeding, infection, neurovascular injury, need for additional surgical intervention, failure of pain relief, arthrofibrosis, complications of anesthesia, blood clots, stroke, heart attack, potentially . She understood these risks, amongst others including rotational deformity and leg length discrepancy, and consent was signed. PROCEDURE: The patient was brought into the operating room and placed supine on the operating table. She was then placed onto a fracture table after regional anesthetic was administered. Two grams of Ancef were given. All bony prominences were appropriately padded and great care was taken to position the left hip since she has had a hip hemiarthroplasty in 2010. The right hip was again verified for surgical site and prepped and draped in the standard sterile fashion. Under fluoroscopic imaging, with appropriate reductive maneuver, the intertrochanteric fracture was reduced into anatomic alignment. The starting incision was created proximal to the greater trochanter in line with the femur and a greater trochanteric tip starting point was obtained and a center/center position on AP and lateral positioning. It was then over drilled and the short nail was secured into position. With fluoroscopic imaging, again, a center/center hip nail was secured into position with 10. It measured to 90 mm. It was secured and locked into position with a drop lock and loosen quarter turn to allow compression. A distal interlocking screw was then secured into position measuring 35 mm. Fluoroscopic imaging review revealed appropriate anatomic reduction and appropriate hardware placement. All wounds were copiously irrigated and reapproximated using 0 Vicryl, 2-0 Vicryl, and Monocryl. Steri-Strips were used over Mastisol. Dry sterile dressing was applied. She tolerated the procedure well. There were no complications. I attest I performed the entire operation. She was transferred to recovery in good condition. Ricardo Gibson M.D. DR: LAINEY JOB#: [id number] CC:
--- NOTE | 2018-11-26 20:46 | NUR ---
NURSE NOTES: Received report from SENIOR ACCOUNTANT CPAJAYASHREE العراقي. Pt VSS , A&O x 4. No pain, no signs of distress. Dressing on right hip dry & intact. IV RAC 22g dry, intact & patent. Pt oriented to room. Call light in reach, bed in lowest position, side rails up x2. Will continue to monitor.
--- NOTE | 2018-11-26 20:58 | NUR ---
NURSE NOTES: Per Dr. Su, patient can continue Azopt BID and Timolol BID.
[2018-11-26] MEDS ORDERED: Heparin 5000 units/ml inj SUBQ SCH (21:00)
--- NOTE | 2018-11-26 21:00 | Cardiology Progress Note ---
Assessment/Plan Assessment/Plan [id number] Objective Last 24 Hour Vital Signs Date Time Temp Pulse Resp B/P (MAP) Pulse Ox O2 Delivery O2 Flow Rate FiO2 11/26/18 20:10 98.0 64 16 118/43 100 Nasal Cannula 2 11/26/18 19:55 61 16 114/50 100 Nasal Cannula 2 11/26/18 19:40 62 17 128/52 100 Nasal Cannula 2 11/26/18 19:30 66 16 132/52 100 Simple Mask 6 11/26/18 19:25 74 16 123/50 100 Simple Mask 6 11/26/18 19:20 66 23 129/51 100 Simple Mask 6 11/26/18 19:16 97.8 81 16 128/50 100 Simple Mask 6 11/26/18 19:11 81 16 100 11/26/18 18:00 98.4 84 16 159/47 100 Room Air 11/26/18 13:52 98.1 90 15 226/94 100 Room Air Laboratory Tests Test 11/26/18 14:59 11/26/18 16:49 White Blood Count 16.3 K/UL (4.8-10.8) H Red Blood Count 4.36 M/UL (4.20-5.40) Hemoglobin 13.6 G/DL (12.0-16.0) Hematocrit 40.6 % (37.0-47.0) Mean Corpuscular Volume 93 FL (80-99) Mean Corpuscular Hemoglobin 31.1 PG (27.0-31.0) H Mean Corpuscular Hemoglobin Concent 33.4 G/DL (32.0-36.0) Red Cell Distribution Width 13.0 % (11.6-14.8) Platelet Count 158 K/UL (150-450) Mean Platelet Volume 9.0 FL (6.5-10.1) Neutrophils (%) (Auto) 83.7 % (45.0-75.0) H Lymphocytes (%) (Auto) 6.9 % (20.0-45.0) L Monocytes (%) (Auto) 8.5 % (1.0-10.0) Eosinophils (%) (Auto) 0.1 % (0.0-3.0) Basophils (%) (Auto) 0.8 % (0.0-2.0) Prothrombin Time 10.0 SEC (9.30-11.50) Prothromb Time International Ratio 0.9 (0.9-1.1) Activated Partial Thromboplast Time 27 SEC (23-33) Sodium Level 141 MMOL/L (136-145) Potassium Level 3.7 MMOL/L (3.5-5.1) Chloride Level 104 MMOL/L (98-107) Carbon Dioxide Level 25 MMOL/L (21-32) Anion Gap 12 mmol/L (5-15) Blood Urea Nitrogen 15 mg/dL (7-18) Creatinine 0.9 MG/DL (0.55-1.30) Estimat Glomerular Filtration Rate mL/min (>60) Glucose Level 113 MG/DL (74-106) H Calcium Level 9.0 MG/DL (8.5-10.1) Total Bilirubin 1.1 MG/DL (0.2-1.0) H Direct Bilirubin 0.2 MG/DL (0.0-0.3) Aspartate Amino Transf (AST/SGOT) 23 U/L (15-37) Alanine Aminotransferase (ALT/SGPT) 22 U/L (12-78) Alkaline Phosphatase 95 U/L (46-116) Total Protein 6.9 G/DL (6.4-8.2) Albumin 4.3 G/DL (3.4-5.0) Globulin 2.6 g/dL Albumin/Globulin Ratio 1.7 (1.0-2.7) Urine Color Pale yellow Urine Appearance Clear Urine pH 6.5 (4.5-8.0) Urine Specific [place] 1.015 (1.005-1.035) Urine Protein 1+ (NEGATIVE) H Urine Glucose (UA) Negative (NEGATIVE) Urine Ketones Negative (NEGATIVE) Urine Blood 2+ (NEGATIVE) H Urine Nitrite Negative (NEGATIVE) Urine Bilirubin Negative (NEGATIVE) Urine Urobilinogen Normal MG/DL (0.0-1.0) Urine Leukocyte Esterase Negative (NEGATIVE) Urine RBC 0-2 /HPF (0 - 2) Urine WBC 0-2 /HPF (0 - 2) Urine Squamous Epithelial Cells None /LPF (NONE/OCC) Urine Bacteria None /HPF (NONE) Adryan Su MD Nov 26, 2018 21:00
--- NOTE | 2018-11-26 22:15 | Consultation ---
DATE OF CONSULTATION: 11/26/2018 CARDIOLOGY CONSULTATION CONSULTING PHYSICIAN: Adryan Su M.D. REFERRING PHYSICIAN: Jules Braxton M.D. REASON FOR REFERRAL: Preoperative risk assessment. HISTORY OF PRESENT ILLNESS: This 88-year-old female, who was seen today. The patient has had a nonsyncopal fall. She has had problem with balance. She has had several prior falls. At this time, she broke her hip and needs surgery. She really does not have any chest pain or shortness of breath. There is no PND or orthopnea. No dyspnea on exertion. No chest pain on exertion. No palpitation or lightheadedness on standing. PAST MEDICAL HISTORY: Positive for history of non-Hodgkin lymphoma for which she was treated hospital back in 2010. No history of heart attack. No cancer. Otherwise, no stroke, no diabetes, no hypertension. She does have history of hyperlipidemia. No hepatitis or tuberculosis, asthma, emphysema, or ulcers. No kidney problems, liver problems, thyroid problems, or anemia. She does have history of arthritis. No other medical problems are noted. She does have history of glaucoma and history of pancreatitis as well as well as bladder surgery. ALLERGIES: Reported to [employer] SOCIAL HISTORY: She does not smoke. She does drink alcoholic beverages, rare wine. REVIEW OF SYSTEMS: GASTROINTESTINAL: Negative. GENITOURINARY: Negative PULMONARY: Negative. CONSTITUTIONAL: Negative. NEUROLOGIC: Negative. PHYSICAL EXAMINATION: GENERAL: Shows to be elderly female, in no respiratory distress. NECK: Supple. No jugular venous distention. No abdominojugular reflux noted. LUNGS: Clear to auscultation and percussion. CARDIAC: S1 is normal. S2 is normal. Regular rate and rhythm. There is a holosystolic regurgitant murmur noted at the base as well as the apex of the heart. ABDOMEN: Otherwise soft, nontender. Positive bowel sounds. EXTREMITIES: She has pneumatic compression stockings both places. LABORATORY AND DIAGNOSTIC DATA: White count 16.3, hemoglobin 13.6, and platelet count 158. Sodium 141, potassium 3.7 chloride 104, bicarb 25, BUN 15, creatinine 0.9, glucose of 113. Calcium is 9. INR of 0.9 and PTT of 27. Urinalysis is fairly unremarkable. A chest x-ray performed in the emergency room shows no acute findings. Her electrocardiogram that was performed prior to surgery shows normal sinus rhythm, leftward axis, no ST-T wave abnormalities noted. ASSESSMENT AND PLAN: 1. Hip fractures. 2. Non-syncopal fall. 3. Glaucoma history. 4. History of non-Hodgkin lymphoma. Dr. Braxton, this patient was seen in cardiac consultation. The patient has already had her surgery prior to my arrival. She is not experiencing any chest pain at the present time. She seems to tolerate the surgery well. She does have a holosystolic regurgitant murmur that will be evaluated with echocardiogram. She has no recollection of ever being told about that phenomenon. I will follow the patient along as needed. Thank you for allowing me to participate in this patient. Adryan Su M.D. DR: Brianna JOB#: [id number] CC:
[2018-11-26] MEDS: D5 1/2NS w/KCl 20mEq 1,000 ML IV SCH (22:19)
[2018-11-26] MEDS: BRINZOLAMIDE BOTH EYES SCH (22:53)
[2018-11-26] MEDS: Timolol 0.5% Op Soln 2.5ml BOTH EYES SCH (22:53)
[2018-11-27] VITALS: BP 135/43
--- NOTE | 2018-11-27 02:45 | NUR ---
NURSE NOTES: Pt voided 300 cc yellow urine.
[2018-11-27 04:00] VITALS: BP 100/67
[2018-11-27] MEDS: D5 1/2NS w/KCl 20mEq 1,000 ML IV SCH (07:02)
--- NOTE | 2018-11-27 07:48 | NUR ---
HAND-OFF: Report given to JAYASHREE Leon. Pt is stable
[2018-11-27 08:00] VITALS: BP 122/47
--- NOTE | 2018-11-27 08:00 | NUR ---
NURSE NOTES: Received report from Chichi BLANC. On rounds, patient is awake alert and oriented x4, no s/s acute distress noted. Dressing assessed c/d/i. Patient tolerating diet well, will advance per order. Patient reporting pain well managed at this time. Side rails upx2, bed low and locked, call light in reach. Will continue to monitor.
[2018-11-27] MEDS: Docusate 100mg cap ORAL SCH ×3 (08:38→17:53)
[2018-11-27] MEDS: Timolol 0.5% Op Soln 2.5ml BOTH EYES SCH ×2 (08:38→17:54)
[2018-11-27] MEDS: Enoxaparin 30mg Inj SUBQ SCH (08:38)
[2018-11-27] MEDS: BRINZOLAMIDE BOTH EYES SCH ×2 (08:39→17:54)
--- NOTE | 2018-11-27 10:19 | NUR ---
Social Work This Sw received a consult to assist with a home safety evaluation. This SW met with patient who remains alert/oriented x4, stating she was independent overall with ADLS prior, ambulating with cane, living in a [facility]. Patient stating she recognizes she will need extended therapy in a SNF and planning to go to the [facility] facility. Patient explained to contact Sister Pamela Hernandez @ [phone] Ext [phone] when ready to discharge, who will make the arrangements. No other SW needs or concerns identified at this time.
--- NOTE | 2018-11-27 11:45 | Diagnostic Imaging Report ---
Indications: Right intertrochanteric hip fracture. Findings: 3 fluoroscopic views of the right hip were obtained. Intraoperative imaging showing an intratrochanteric fracture reduced by a dynamic hip screw. IMPRESSION: Intraoperative imaging
[2018-11-27 12:00] VITALS: BP 110/67
--- NOTE | 2018-11-27 13:10 | 48 Hour Post Anesthesia Eval ---
Post Anesthesia Evaluation Procedure: ORIF R Hip Date of Evaluation: Nov 27, 2018 Time of Evaluation: 13:09 Blood Pressure Systolic: 134 0: 64 Pulse Rate: 72 Respiratory Rate: 20 Temperature (Fahrenheit): 97.6 O2 Sat by Pulse Oximetry: 98 Airway: patent Nausea: No Vomiting: No Pain Intensity: 2 Hydration Status: adequate Cardiopulmonary Status: stable Mental Status/LOC: patient returned to baseline Follow-up Care/Observations: n/a Post-Anesthesia Complications: none Follow-up care needed: N/A Heriberto Foreman MD Nov 27, 2018 13:10
--- NOTE | 2018-11-27 13:36 | NUR ---
REHAB MED PT NOTE CONSULT RECEIVED, NESTOR HOLMANLETED, PATIENT WILL BENEFIT FROM SKILLED PT DURING STAY FOR RETURN TO [facility]. RECOMMEND SNF AT [facility]. PLAN OF CARE INITIATED. BARTOLO PEREZ PT DPT Addendum: 11/27/18 at 1337 by BARTOLO PEREZ PT Amended: Links added.
[2018-11-27] MEDS ORDERED: Morphine Sulfate 4mg/ml Inj (IV/IM USE ONLY) IVP PRN (14:00)
[2018-11-27] MEDS: Norco 5mg/325mg tab ORAL PRN (14:22)
--- NOTE | 2018-11-27 14:22 | General Progress Note ---
Assessment/Plan Problem List: (1) Closed right hip fracture ICD Codes: S72.001A - Fracture of unspecified part of neck of right femur, initial encounter for closed fracture SNOMED: 495083997 Qualifiers: Qualified Codes: S72.001A - Fracture of unspecified part of neck of right femur, initial encounter for closed fracture (2) Non-Hodgkin lymphoma in remission ICD Codes: C85.90 - Non-Hodgkin lymphoma, unspecified, unspecified site SNOMED: 462537306 Assessment/Plan Pain meds PT DVT prophylaxis Discussed with RN Subjective Allergies: Coded Allergies: DEMECLOCYCLINE (Verified Allergy, Unknown, 12/29/10) Subjective S/P hip repair Objective Last 24 Hour Vital Signs Date Time Temp Pulse Resp B/P (MAP) Pulse Ox O2 Delivery O2 Flow Rate FiO2 11/27/18 13:10 72 20 98 11/27/18 12:00 98.0 82 18 110/67 (81) 98 11/27/18 09:00 Room Air 11/27/18 08:00 98.0 80 17 122/47 (72) 98 11/27/18 04:59 98.5 11/27/18 04:00 97.1 53 18 100/67 (78) 100 11/27/18 00:00 97.1 18 135/43 (73) 98 11/26/18 22:40 Nasal Cannula 2.0 11/26/18 21:30 97.6 18 118/56 (76) 98 11/26/18 21:00 98.1 17 115/58 (77) 100 11/26/18 20:30 97.5 18 131/52 (78) 100 11/26/18 20:10 98.0 64 16 118/43 100 Nasal Cannula 2 11/26/18 19:55 61 16 114/50 100 Nasal Cannula 2 11/26/18 19:40 62 17 128/52 100 Nasal Cannula 2 11/26/18 19:30 66 16 132/52 100 Simple Mask 6 11/26/18 19:25 74 16 123/50 100 Simple Mask 6 11/26/18 19:20 66 23 129/51 100 Simple Mask 6 11/26/18 19:16 97.8 81 16 128/50 100 Simple Mask 6 11/26/18 19:11 81 16 100 11/26/18 18:00 98.4 84 16 159/47 100 Room Air Intake and Output 11/26/18 11/27/18 19:00 07:00 Intake Total 550 ml 1240 ml Output Total 611 ml Balance 550 ml 629 ml Intake Oral 240 ml IV Total 550 ml 1000 ml Output Urine Total 600 ml Estimated Blood Loss 11 ml # Voids 2 2 Laboratory Tests 11/26/18 14:59: White Blood Count 16.3H, Red Blood Count 4.36, Hemoglobin 13.6, Hematocrit 40.6 , Mean Corpuscular Volume 93, Mean Corpuscular Hemoglobin 31.1H, Mean Corpuscular Hemoglobin Concent 33.4, Red Cell Distribution Width 13.0, Platelet Count 158, Mean Platelet Volume 9.0, Neutrophils (%) (Auto) 83.7H, Lymphocytes ( %) (Auto) 6.9L, Monocytes (%) (Auto) 8.5, Eosinophils (%) (Auto) 0.1, Basophils (%) (Auto) 0.8, Prothrombin Time 10.0, Prothromb Time International Ratio 0.9, Activated Partial Thromboplast Time 27, Sodium Level 141, Potassium Level 3.7, Chloride Level 104, Carbon Dioxide Level 25, Anion Gap 12, Blood Urea Nitrogen 15, Creatinine 0.9, Estimat Glomerular Filtration Rate , Glucose Level 113H, Calcium Level 9.0, Total Bilirubin 1.1H, Direct Bilirubin 0.2, Aspartate Amino Transf (AST/SGOT) 23, Alanine Aminotransferase (ALT/SGPT) 22, Alkaline Phosphatase 95, Total Protein 6.9, Albumin 4.3, Globulin 2.6, Albumin/Globulin Ratio 1.7 11/26/18 16:49: Urine Color Pale yellow, Urine Appearance Clear, Urine pH 6.5, Urine Specific [place] 1.015, Urine Protein 1+H, Urine Glucose (UA) Negative, Urine Ketones Negative, Urine Blood 2+H, Urine Nitrite Negative, Urine Bilirubin Negative, Urine Urobilinogen Normal, Urine Leukocyte Esterase Negative, Urine RBC 0-2, Urine WBC 0-2, Urine Squamous Epithelial Cells None, Urine Bacteria None Height (Feet): 5 Height (Inches): 5.00 Weight (Pounds): 105 Cardiovascular: normal rate Respiratory/Chest: lungs clear Edema: no edema noted Generalized Jules Braxton MD Nov 27, 2018 14:22
--- NOTE | 2018-11-27 15:35 | NUR ---
CASE MANAGEMENT: REVIEW 88/F BIBA FROM CC: LOWER EXTREMITY INJURY SI: RIGHT HIP FRACTURE ORIF RIGHT HIP 11/26 T 97.1 HR 53 RR 18 BP 226/94 SAT 100% SIMPLE MASK 6 WBC 16.3 IS: MORPHINE IV X1 ZOFRAN IV X1 NS IVF BOLUS X1 PROPOFOL IV X1 LIDOCAINE INJ X1 VERSED IV X1 INTERQUAL CRITERIA MET: PATIENT ADMITTED TO MED/SURG UNIT 11/26/2018 DCP: PATIENT IS FROM HOME
[2018-11-27 16:00] VITALS: BP 125/50
[2018-11-27] MEDS ORDERED: NS Irrig 1000ml ONE (18:00)
[2018-11-27] MEDS ORDERED: Sterile Water Irrig 1000ml IRRIG ONE (18:00)
[2018-11-27] MEDS ORDERED: LR 1000ml ONE (18:00)
--- NOTE | 2018-11-27 19:50 | NUR ---
HAND-OFF: Report given to Naif BLANC
--- NOTE | 2018-11-27 19:55 | NUR ---
NURSE NOTES: Received report from JAYASHREE Leon and rounds done. Received pt lying in bed, A&OX4, denies pain at this time, surgical dressing C/D/I. IV R AC # 22 patent and intact. Safety measures maintained. Bed in low position and locked, side rails up x 2, call light within reach. Will continue to monitor.
[2018-11-27 20:00] VITALS: BP 126/49
--- NOTE | 2018-11-27 20:53 | Cardiology Progress Note ---
Assessment/Plan Assessment/Plan 1. Hip fractures. 2. Non-syncopal fall. 3. Glaucoma history. 4. History of non-Hodgkin lymphoma bp lab see ok has murmur echo . Objective Last 24 Hour Vital Signs Date Time Temp Pulse Resp B/P (MAP) Pulse Ox O2 Delivery O2 Flow Rate FiO2 11/27/18 20:00 97.8 82 17 126/49 (74) 94 11/27/18 16:00 97.7 76 18 125/50 (75) 98 11/27/18 13:10 72 20 98 11/27/18 12:00 98.0 82 18 110/67 (81) 98 11/27/18 09:00 Room Air 11/27/18 08:00 98.0 80 17 122/47 (72) 98 11/27/18 04:59 98.5 11/27/18 04:00 97.1 53 18 100/67 (78) 100 11/27/18 00:00 97.1 18 135/43 (73) 98 11/26/18 22:40 Nasal Cannula 2.0 11/26/18 21:30 97.6 18 118/56 (76) 98 11/26/18 21:00 98.1 17 115/58 (77) 100 Intake and Output 11/26/18 11/27/18 18:59 06:59 Intake Total 550 ml 1240 ml Output Total 611 ml Balance 550 ml 629 ml Intake Oral 240 ml IV Total 550 ml 1000 ml Output Urine Total 600 ml Estimated Blood Loss 11 ml # Voids 2 2 Adryan Su MD Nov 27, 2018 20:53
[2018-11-28] VITALS: BP 128/52
[2018-11-28] MEDS: Norco 5mg/325mg tab ORAL PRN ×2 (00:39→09:09)
[2018-11-28 04:00] VITALS: BP 130/55
--- NOTE | 2018-11-28 07:19 | NUR ---
HAND-OFF: Report given to JAYASHREE Peraza. Pt in stable condition.
--- NOTE | 2018-11-28 07:26 | NUR ---
HAND-OFF: Report given to JAYASHREE Villela. Pt in stable condition.
--- NOTE | 2018-11-28 07:53 | NUR ---
NURSE NOTES: Received report from Naif Stallings RN. A/O X4 and having breakfast. Denies any pain at this time. No respiratory discomfort noted. Right hip surgical dressing site dry and intact. Call light within reach and will continue to monitor.
[2018-11-28 08:00] VITALS: BP 114/46
[2018-11-28] MEDS: Docusate 100mg cap ORAL SCH ×4 (09:08→17:36)
[2018-11-28] MEDS: Timolol 0.5% Op Soln 2.5ml BOTH EYES SCH ×2 (09:09→17:33)
[2018-11-28] MEDS: BRINZOLAMIDE BOTH EYES SCH ×2 (09:09→17:32)
[2018-11-28] MEDS: Enoxaparin 30mg Inj SUBQ SCH (09:10)
--- NOTE | 2018-11-28 10:16 | NUR ---
CASE MANAGEMENT: REVIEW SI: RIGHT HIP FRACTURE ORIF RIGHT HIP 11/26 T 99.0 HR 85 RR 18 BP 114/46 SAT 96% ROOM AIR IS: NORCO 5/325 PO Q6HR PRN LOVENOX SQ QD TYLENOL 650MG PO Q4HR PRN PT EVAL MED/SURG STATUS DCP: PATIENT IS FROM HOME PLAN: 2D ECHO
[2018-11-28 12:00] VITALS: BP 120/47
--- NOTE | 2018-11-28 14:58 | General Progress Note ---
Assessment/Plan Problem List: (1) Closed right hip fracture ICD Codes: S72.001A - Fracture of unspecified part of neck of right femur, initial encounter for closed fracture SNOMED: 122831484 Qualifiers: Qualified Codes: S72.001A - Fracture of unspecified part of neck of right femur, initial encounter for closed fracture (2) Non-Hodgkin lymphoma in remission ICD Codes: C85.90 - Non-Hodgkin lymphoma, unspecified, unspecified site SNOMED: 750740276 Assessment/Plan Pain meds PT DVT prophylaxis Discussed with pillowcase sewer Subjective Allergies: Coded Allergies: DEMECLOCYCLINE (Verified Allergy, Unknown, 12/29/10) Subjective S/P hip repair Objective Last 24 Hour Vital Signs Date Time Temp Pulse Resp B/P (MAP) Pulse Ox O2 Delivery O2 Flow Rate FiO2 11/28/18 12:00 98.3 86 18 120/47 (71) 98 11/28/18 09:00 Room Air 11/28/18 08:00 99.0 85 18 114/46 (68) 96 11/28/18 04:00 98.4 82 17 130/55 (80) 96 11/28/18 00:00 98.5 81 18 128/52 (77) 95 11/27/18 21:00 Room Air 11/27/18 20:00 97.8 82 17 126/49 (74) 94 11/27/18 16:00 97.7 76 18 125/50 (75) 98 Intake and Output 11/27/18 11/28/18 19:00 07:00 Intake Total 1175 ml 100 ml Balance 1175 ml 100 ml Intake Oral 800 ml 100 ml IV Total 375 ml # Voids 4 1 Height (Feet): 5 Height (Inches): 5.00 Weight (Pounds): 105 Cardiovascular: normal rate Respiratory/Chest: lungs clear Jules Braxton MD Nov 28, 2018 14:58
[2018-11-28 16:00] VITALS: BP 122/48
--- NOTE | 2018-11-28 16:40 | NUR ---
NURSE NOTES: Patient temperature 100.[address] Braxton notified and ordered. 1. B-cul x2 2. U/A, U-cul 3. Zosyn IVPB per pharmacy protocol Noted and carried out.
--- NOTE | 2018-11-28 19:51 | NUR ---
HAND-OFF: Report given to JAYASHREE Cadet.
[2018-11-28 20:00] VITALS: BP 120/46
--- NOTE | 2018-11-28 20:00 | NUR ---
NURSE NOTES: Received report from outgoing RN Paramjit. Pt A&O x4, laying supine in bed, no signs of distress. Vitals stable, oral temp 99.7F. IV site dry & intact. Surgical dressing CDI Call light in reach, bed in lowest position, side rails up x2. Will continue to monitor pt.
[2018-11-28 20:47] LABS: APPEARANCE,URINE CLEAR; BILIRUBIN, URINE NEGATIVE (NEGATIVE); COLOR,URINE AMBER; GLUCOSE, URINE (UA) NEGATIVE (NEGATIVE); KETONES,URINE NEGATIVE (NEGATIVE); LEUKOCYTE ESTERASE ,URINE 1+ (NEGATIVE); NITRITE,URINE NEGATIVE (NEGATIVE); PH,URINE 5 (4.5-8.0); PROTEIN,URINE 2+ (NEGATIVE); UROBILINOGEN,URINE 1 MG/DL (0.0-1.0)
[2018-11-28] MEDS: Piperacillin/Tazobactam 3.375 GM in D5W 110 ML IVPB SCH (22:04)
[2018-11-29] VITALS: BP 128/54
[2018-11-29 04:00] VITALS: BP 119/99
[2018-11-29] MEDS: Piperacillin/Tazobactam 3.375 GM in D5W 110 ML IVPB SCH ×3 (06:19→22:37)
--- NOTE | 2018-11-29 07:27 | NUR ---
NURSE NOTES: Received report from Chichi BLANC. On rounds patient is awake alert and oriented x4, sitting up in bed. No s/s acute distress noted. Patient reports no pain at this time. Dressing assessed c/d/i. IV running Zosyn per order, IV site intact and asymptomatic. Fall precautions maintained, side rails upx2, bed low and locked, call light in reach. Patient reminded to call for assistance before getting OOB. Will continue to monitor.
[2018-11-29 08:00] VITALS: BP 119/42
[2018-11-29] MEDS: Timolol 0.5% Op Soln 2.5ml BOTH EYES SCH ×2 (09:07→17:25)
[2018-11-29] MEDS: BRINZOLAMIDE BOTH EYES SCH ×2 (09:07→17:25)
[2018-11-29] MEDS: Docusate 100mg cap ORAL SCH ×3 (09:07→17:25)
[2018-11-29] MEDS: Enoxaparin 30mg Inj SUBQ SCH (09:08)
[2018-11-29 12:00] VITALS: BP 110/46
--- NOTE | 2018-11-29 14:40 | General Progress Note ---
Assessment/Plan Problem List: (1) Closed right hip fracture ICD Codes: S72.001A - Fracture of unspecified part of neck of right femur, initial encounter for closed fracture SNOMED: 563848121 Qualifiers: Qualified Codes: S72.001A - Fracture of unspecified part of neck of right femur, initial encounter for closed fracture (2) Non-Hodgkin lymphoma in remission ICD Codes: C85.90 - Non-Hodgkin lymphoma, unspecified, unspecified site SNOMED: 266349567 (3) Fever ICD Codes: R50.9 - Fever, unspecified SNOMED: 717855387 Assessment/Plan Pain meds PT DVT prophylaxis fever W/U Subjective Allergies: Coded Allergies: DEMECLOCYCLINE (Verified Allergy, Unknown, 12/29/10) Subjective S/P hip repair feels ok Objective Last 24 Hour Vital Signs Date Time Temp Pulse Resp B/P (MAP) Pulse Ox O2 Delivery O2 Flow Rate FiO2 11/29/18 12:00 99.4 83 16 110/46 (67) 100 11/29/18 09:00 Room Air 11/29/18 08:00 97.8 95 17 119/42 (67) 100 11/29/18 04:00 99.8 84 20 119/99 (106) 99 11/29/18 00:00 99.6 92 20 128/54 (78) 99 11/28/18 21:00 Room Air 11/28/18 20:00 99.7 85 20 120/46 (70) 98 11/28/18 18:00 100.5 11/28/18 16:30 100.0 11/28/18 16:00 100.3 102 18 122/48 (72) 98 Intake and Output 11/28/18 11/29/18 19:00 07:00 Intake Total 300 ml 240 ml Balance 300 ml 240 ml Intake Oral 300 ml 240 ml # Voids 2 Laboratory Tests 11/28/18 19:15: Urine Color Aysha, Urine Appearance Clear, Urine pH 5, Urine Specific [place] 1.015, Urine Protein 2+H, Urine Glucose (UA) Negative, Urine Ketones Negative, Urine Blood 1+H, Urine Nitrite Negative, Urine Bilirubin Negative, Urine Ictotest Negative, Urine Urobilinogen 1H, Urine Leukocyte Esterase 1+H, Urine RBC 2-4H, Urine WBC 0-2, Urine Squamous Epithelial Cells Few, Urine Bacteria Occasional, Urine Mucus ModerateH Height (Feet): 5 Height (Inches): 5.00 Weight (Pounds): 105 Cardiovascular: normal rate Respiratory/Chest: lungs clear Edema: no edema noted Generalized Jules Braxton MD Nov 29, 2018 14:40
[2018-11-29 16:00] VITALS: BP 127/43
--- NOTE | 2018-11-29 19:23 | NUR ---
HAND-OFF: Report given to Chichi BLANC. Patient stable.
--- NOTE | 2018-11-29 19:43 | NUR ---
NURSE NOTES: Received report from outgoing RN Carolyn. Pt is stable, A&O x 4, laying semi-fowlers in bed. Pt declines pain, no signs of distress. IV site 22g RAC dry & intact. IS at bedside. Surgical site C/D/I. Call light in reach, bed in lowest position, side rails up x 2. Will continue to monitor pt.
[2018-11-29 20:00] VITALS: BP 121/47
--- NOTE | 2018-11-29 21:43 | Cardiology Progress Note ---
Assessment/Plan Assessment/Plan the patient is post hip surgery, she does not have cardiac symptoms Subjective Subjective the patient is resting in her bed comfortably, she does nto have cardiac complaints Objective Last 24 Hour Vital Signs Date Time Temp Pulse Resp B/P (MAP) Pulse Ox O2 Delivery O2 Flow Rate FiO2 11/29/18 20:00 99.1 78 18 121/47 (71) 94 11/29/18 16:00 99.2 83 16 127/43 (71) 100 11/29/18 12:00 99.4 83 16 110/46 (67) 100 11/29/18 09:00 Room Air 11/29/18 08:00 97.8 95 17 119/42 (67) 100 11/29/18 04:00 99.8 84 20 119/99 (106) 99 11/29/18 00:00 99.6 92 20 128/54 (78) 99 General Appearance: no apparent distress EENT: PERRL/EOMI Neck: no JVD Rhythm: NSR Cardiovascular: normal rate, systolic murmur Respiratory/Chest: decreased breath sounds Abdomen: soft Extremities: other - p[ost hip surgery Intake and Output 11/28/18 11/29/18 18:59 06:59 Intake Total 300 ml 240 ml Balance 300 ml 240 ml Intake Oral 300 ml 240 ml # Voids 2 Romy Barfield MD Nov 29, 2018 21:43
[2018-11-29] MEDS ORDERED: Tubing IV Secondary IV ONE (22:37)
[2018-11-29] MEDS ORDERED: NS 500ML ONE (22:37)
[2018-11-30] VITALS: BP 122/49
[2018-11-30 04:00] VITALS: BP 119/50
--- NOTE | 2018-11-30 04:30 | Consultation ---
DATE OF CONSULTATION: 11/29/2018 INFECTIOUS DISEASES CONSULTATION CONSULTING PHYSICIAN: Ector Echols M.D. REFERRING PHYSICIAN: Jules Braxton M.D. REASON FOR CONSULTATION: Fever. 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 She underwent right hip nailing and she was found to have fevers and an Infectious Diseases consultation has been obtained for antibiotics. PAST MEDICAL HISTORY: 1. History of non-Hodgkin's lymphoma, status post chemotherapy in remission. 2. Glaucoma. 3. Pancreatitis. 4. Gallbladder surgery. SOCIAL HISTORY: She used to be a smoker. She does not smoke anymore. She drinks alcohol socially. No history of drug use. FAMILY HISTORY: Positive for breast cancer in two of her sisters. Her father had a stroke. REVIEW OF SYSTEMS: RESPIRATORY: She did have fever. No chills. No cough. No shortness of breath or chest pain. She does have a sore throat. CARDIAC: No chest pain. No palpitation. No dizziness. No syncope. GASTROINTESTINAL: No nausea, no vomiting, no abdominal pain or diarrhea. MUSCULOSKELETAL: She complains of right hip pain. MEDICATIONS: As an inpatient, she is on Zosyn, atorvastatin, morphine, [place], Lovenox, Colace, fish oil, famotidine, Timolol drops, Compazine, Restoril, milk of magnesia, Tylenol, and Ambien. ALLERGIES: To demeclocycline noted. PHYSICAL EXAMINATION: VITAL SIGNS: Temperature of 97.8, T-max of 100.5, pulse of 95, respiratory rate 17, blood pressure 119/42, and O2 saturation of 100%. HEENT: Pupils equally reactive to light and accommodation. Mouth appears clean without thrush. NECK: Supple. No adenopathy. No JVD. CARDIOVASCULAR: Regular rate and rhythm. No murmurs. LUNGS: Clear to auscultation bilaterally. No crackles. No wheezes. ABDOMEN: Soft and nontender. No organomegaly. EXTREMITIES: No cyanosis, no clubbing, no edema. Right hip wound is in dressings. LABORATORY AND DIAGNOSTIC DATA: Labs, white count 16.3, hemoglobin 13.6, hematocrit 40.6, MCV 93, platelet count of 158 with neutrophils of 83%. Sodium 141, potassium 3.7, chloride 104, bicarb 25, BUN 15, creatinine 0.9, glucose 113, calcium 9. Total bilirubin 1.1 and direct bilirubin 0.2. AST 23, ALT 22, alkaline phosphatase 95. Total protein 6.9 and albumin 4.3. UA showing 0 to 2 white cells. Nasal swab was negative for MRSA. Rectal swab was negative for VRE. Chest x-ray showing no acute findings. ASSESSMENT: 1. This is an 88-year-old lady with history of non-Hodgkin's lymphoma in remission, who recently had a fall and had a right hip fracture and she has undergone nailing and now has postoperative fevers. 2. We would like to rule out urinary tract infection as a possibility. 3. We would like to rule out sepsis as a possibility. 4. Non-Hodgkin's lymphoma. 5. Glaucoma. PLAN: 1. We will order blood cultures and urine cultures. 2. Continue Zosyn. 3. We will follow up cultures and adjust antibiotics accordingly. I would like to thank Dr. Braxton, for this consultation. Ector Echols M.D. DR: ELEZAAR JOB#: [id number] CC:
[2018-11-30] MEDS: Piperacillin/Tazobactam 3.375 GM in D5W 110 ML IVPB SCH ×3 (05:19→21:41)
--- NOTE | 2018-11-30 07:36 | NUR ---
HAND-OFF: Report given to Tushar BLANC. Pt is stable.
--- NOTE | 2018-11-30 07:41 | NUR ---
NURSE NOTES: New IV started Right wrist 24 Gauge. Pt tolerated well.
[2018-11-30 08:00] VITALS: BP 113/44
[2018-11-30] MEDS: Timolol 0.5% Op Soln 2.5ml BOTH EYES SCH ×2 (08:43→17:54)
[2018-11-30] MEDS: BRINZOLAMIDE BOTH EYES SCH ×2 (08:44→17:33)
[2018-11-30] MEDS: Docusate 100mg cap ORAL SCH ×3 (08:44→17:32)
[2018-11-30] MEDS: Enoxaparin 30mg Inj SUBQ SCH (08:45)
--- NOTE | 2018-11-30 11:34 | NUR ---
NURSE NOTES: Received report from Eddie BLANC, pt a/a/o x4 laying in bed with no signs of distress or other issues at this time. surgical dressing dry and intact. Iv on the right FA gauge #24 heplock asymptomatic. pt in a regular diet, able to tolerated well. call light within reach, bed in lowest position. side rales up x2. I will f/u as needed.
[2018-11-30 12:00] VITALS: BP 115/44
--- NOTE | 2018-11-30 12:30 | NUR ---
NURSE NOTES: Patient up/ambulating in halls with Physical Therapy and rolling walker, then up to the chair, tolerated activity well, no complains of pain. Vitals stable. Encouraged cough, deep breathing and pedal pushes/ankle rotations. LLE SCD on while in bed. Right hip dressing remains clean dry and intact.
--- NOTE | 2018-11-30 12:34 | Infectious Diseases Prog Note ---
Assessment/Plan Assessment/Plan A; Postoperative fever UTI R hip fracture s/p ORIF history of non-Hodgkin's lymphoma P; Continue Zosyn Will f/u cultures Subjective ROS Limited/Unobtainable: No Constitutional: Reports: no symptoms Respiratory: Reports: no symptoms Gastrointestinal/Abdominal: Reports: no symptoms Genitourinary: Reports: no symptoms Musculoskeletal: Reports: no symptoms Allergies: Coded Allergies: DEMECLOCYCLINE (Verified Allergy, Unknown, 12/29/10) Objective Vital Signs Last 24 Hour Vital Signs Date Time Temp Pulse Resp B/P (MAP) Pulse Ox O2 Delivery O2 Flow Rate FiO2 11/30/18 08:00 97.8 78 17 113/44 (67) 98 11/30/18 04:00 97.5 82 18 119/50 (73) 96 11/30/18 00:00 98.3 89 18 122/49 (73) 98 11/29/18 21:00 Room Air 11/29/18 20:00 99.1 78 18 121/47 (71) 94 11/29/18 16:00 99.2 83 16 127/43 (71) 100 Height (Feet): 5 Height (Inches): 5.00 Weight (Pounds): 105 General Appearance: no acute distress HEENT: mucous membranes moist Respiratory/Chest: normal breath sounds Cardiovascular: normal rate Abdomen: soft, non tender Extremities: no edema Neurologic/Psychiatric: alert, oriented x 3, responsive Microbiology Date/Time Source Procedure Growth Status 11/28/18 18:35 Blood Blood Culture - Preliminary NO GROWTH AFTER 24 HOURS Resulted 11/28/18 18:25 Blood Blood Culture - Preliminary NO GROWTH AFTER 24 HOURS Resulted 11/28/18 19:15 Urine,Clean Catch Urine Culture - Preliminary Gram Negative Bacillus 1 Resulted Current Medications Medications (Trade) Dose Ordered Sig/Art Route PRN Reason Start Time Stop Time Status Last Admin Dose Admin Acetaminophen (Tylenol) 650 mg Q4H PRN ORAL Mild Pain (Pain Scale 1-3) 11/26/18 16:45 12/26/18 16:44 11/29/18 23:53 Acetaminophen/ Hydrocodone Bitart ([place] 5/325) 1 tab Q6H PRN ORAL Moderate Pain (Pain Scale 4-6) 11/27/18 14:00 12/04/18 13:59 11/28/18 09:09 Acetaminophen/ Hydrocodone Bitart ([place] 5/325) 2 tab Q6H PRN ORAL Severe Pain (Pain Scale 7-10) 11/26/18 17:45 12/03/18 17:44 Atorvastatin Calcium (Lipitor) 10 mg THREE TIMES A WEEK ORAL 11/28/18 09:00 12/28/18 08:59 11/28/18 09:08 Dextrose (Dextrose 50%) 25 ml Q30M PRN IV Hypoglycemia 11/26/18 16:45 12/26/18 16:44 Dextrose (Dextrose 50%) 50 ml Q30M PRN IV Hypoglycemia 11/26/18 16:45 12/26/18 16:44 Docusate Sodium (Colace) 100 mg THREE TIMES A DAY ORAL 11/27/18 09:00 12/27/18 08:59 11/30/18 08:44 Enoxaparin Sodium (Lovenox) 30 mg DAILY SUBQ 11/27/18 09:00 12/07/18 08:59 11/30/18 08:45 Famotidine (Pepcid) 20 mg DAILY ORAL 11/27/18 09:00 12/27/18 08:59 11/30/18 08:44 Fish Oil (Fish Oil) 1,000 mg DAILY ORAL 11/27/18 09:00 12/27/18 08:59 11/30/18 10:22 Magnesium Hydroxide (Mom) 30 ml DAILYPRN PRN ORAL Constipation 11/26/18 17:45 12/26/18 17:44 Morphine Sulfate (Morphine Sulfate) 2 mg Q3H PRN IVP Severe Breakthru Pain (>7) 11/27/18 14:00 12/03/18 16:44 Patient Own Medication (Patient's Own Med) 1 ea TWICE A DAY BOTH EYES 11/26/18 23:00 12/26/18 22:59 11/30/18 08:44 Piperacillin Sod/ Tazobactam Sod 3.375 gm/Dextrose 110 ml @ 27.5 mls/hr EVERY 8 HOURS IVPB 11/28/18 22:00 12/05/18 21:59 11/30/18 05:19 Prochlorperazine (Compazine) 10 mg Q6H PRN IVP Nausea & Vomiting 11/26/18 17:45 12/26/18 17:44 Temazepam (Restoril) 7.5 mg DAILYPRN PRN ORAL Insomnia 11/26/18 17:45 12/03/18 17:44 Timolol Maleate (Timoptic 0.5% Op Soln) 1 drop TWICE A DAY BOTH EYES 11/26/18 23:00 12/26/18 22:59 11/30/18 08:43 Zolpidem Tartrate (Ambien) 5 mg HSPRN PRN ORAL Insomnia 11/26/18 16:45 12/03/18 16:44 Shukri Braxton MD Nov 30, 2018 12:34
--- NOTE | 2018-11-30 15:21 | General Progress Note ---
Assessment/Plan Problem List: (1) Closed right hip fracture ICD Codes: S72.001A - Fracture of unspecified part of neck of right femur, initial encounter for closed fracture SNOMED: 415353291 Qualifiers: Qualified Codes: S72.001A - Fracture of unspecified part of neck of right femur, initial encounter for closed fracture (2) Non-Hodgkin lymphoma in remission ICD Codes: C85.90 - Non-Hodgkin lymphoma, unspecified, unspecified site SNOMED: 535529535 (3) Fever ICD Codes: R50.9 - Fever, unspecified SNOMED: 314553578 (4) UTI (urinary tract infection) ICD Codes: N39.0 - Urinary tract infection, site not specified SNOMED: 90567450 Assessment/Plan Pain meds PT DVT prophylaxis abxs Subjective Allergies: Coded Allergies: DEMECLOCYCLINE (Verified Allergy, Unknown, 12/29/10) Subjective S/P hip repair feels ok Objective Last 24 Hour Vital Signs Date Time Temp Pulse Resp B/P (MAP) Pulse Ox O2 Delivery O2 Flow Rate FiO2 11/30/18 12:00 97.6 75 18 115/44 (67) 99 11/30/18 09:00 Room Air 11/30/18 08:00 97.8 78 17 113/44 (67) 98 11/30/18 04:00 97.5 82 18 119/50 (73) 96 11/30/18 00:00 98.3 89 18 122/49 (73) 98 11/29/18 21:00 Room Air 11/29/18 20:00 99.1 78 18 121/47 (71) 94 11/29/18 16:00 99.2 83 16 127/43 (71) 100 Intake and Output 11/29/18 11/30/18 19:00 07:00 Intake Total 530.0 ml 240 ml Balance 530.0 ml 240 ml Intake Oral 420 ml 240 ml IV Total 110.0 ml # Voids 2 2 Height (Feet): 5 Height (Inches): 5.00 Weight (Pounds): 105 Cardiovascular: normal rate Respiratory/Chest: lungs clear Edema: no edema noted Generalized Jules Braxton MD Nov 30, 2018 15:21
[2018-11-30 16:00] VITALS: BP 126/47
--- NOTE | 2018-11-30 19:39 | NUR ---
NURSE NOTES: Addendum: 11/30/18 at 1939 by Tushar Mcdaniels RN HAND-OFF: Report given to Chichi BLANC pt in stable condition.
--- NOTE | 2018-11-30 19:45 | NUR ---
NURSE NOTES: Received report from outgoing RN Tushar. Pt is stable, A&O x 4, laying semi-fowlers in bed. No signs of pain or distress. IV right wrist 24g dry & intact. Surgical site C/D/I. Call light in reach, bed in lowest position, side rails up x 2. Will continue to monitor pt.
[2018-11-30 20:00] VITALS: BP 131/54
--- NOTE | 2018-11-30 20:04 | Cardiology Progress Note ---
Assessment/Plan Assessment/Plan the patient is post hip surgery, she does not have cardiac symptoms Subjective Subjective the patient is resting in her bed comfortably, she does not have cardiac complaints Objective Last 24 Hour Vital Signs Date Time Temp Pulse Resp B/P (MAP) Pulse Ox O2 Delivery O2 Flow Rate FiO2 11/30/18 16:00 97.8 82 18 126/47 (73) 100 11/30/18 12:00 97.6 75 18 115/44 (67) 99 11/30/18 09:00 Room Air 11/30/18 08:00 97.8 78 17 113/44 (67) 98 11/30/18 04:00 97.5 82 18 119/50 (73) 96 11/30/18 00:00 98.3 89 18 122/49 (73) 98 11/29/18 21:00 Room Air General Appearance: alert EENT: PERRL/EOMI Neck: no JVD Rhythm: NSR Cardiovascular: normal rate, systolic murmur Respiratory/Chest: lungs clear Abdomen: soft Extremities: other - post op Intake and Output 11/29/18 11/30/18 19:00 07:00 Intake Total 530.0 ml 240 ml Balance 530.0 ml 240 ml Intake Oral 420 ml 240 ml IV Total 110.0 ml # Voids 2 2 Microbiology Date/Time Source Procedure Growth Status 11/28/18 18:35 Blood Blood Culture - Preliminary NO GROWTH AFTER 24 HOURS Resulted 11/28/18 18:25 Blood Blood Culture - Preliminary NO GROWTH AFTER 24 HOURS Resulted 11/28/18 19:15 Urine,Clean Catch Urine Culture - Preliminary Gram Negative Bacillus 1 Resulted Romy Barfield MD Nov 30, 2018 20:04
--- NOTE | 2018-11-30 20:40 | NUR ---
NURSE NOTES: Pt had bowel movement. Medium, loose formed stool.
[2018-12-01] VITALS: BP 126/57
[2018-12-01 04:00] VITALS: BP 130/55
[2018-12-01] MEDS: Piperacillin/Tazobactam 3.375 GM in D5W 110 ML IVPB SCH (05:05)
--- NOTE | 2018-12-01 07:20 | NUR ---
HAND-OFF: Report given to JAYASHREE Engel. Pt is stable.
--- NOTE | 2018-12-01 07:45 | NUR ---
NURSE NOTES: Pt received alert and oriented x4 with no reports or s/s of pain, SOB, or n/v. IV site asymptomatic and patent, bed in lowest position and call light within reach.
[2018-12-01 08:00] VITALS: BP 121/71
[2018-12-01] MEDS: Docusate 100mg cap ORAL SCH ×3 (09:00→17:58)
[2018-12-01] MEDS: BRINZOLAMIDE BOTH EYES SCH ×2 (09:25→17:58)
[2018-12-01] MEDS: Timolol 0.5% Op Soln 2.5ml BOTH EYES SCH ×2 (09:25→17:58)
[2018-12-01] MEDS: Enoxaparin 30mg Inj SUBQ SCH (09:26)
--- NOTE | 2018-12-01 10:40 | NUR ---
CASE MANAGEMENT: REVIEW SI: RIGHT HIP FRACTURE ORIF RIGHT HIP 11/26 T 97.6 HR 85 RR 16 BP 131/55 SAT 98% ROOM AIR IS: ZOSYN IV Q8HR LIPITOR PO TID [place] 5/325 PO Q6HR PRN LOVENOX SQ QD MED/SURG STATUS DCP: PATIENT IS FROM HOME
[2018-12-01 12:00] VITALS: BP 128/51
--- NOTE | 2018-12-01 12:46 | Infectious Diseases Prog Note ---
Assessment/Plan Assessment/Plan A; Postoperative fever UTI with Proteus R hip fracture s/p ORIF history of non-Hodgkin's lymphoma P; Change Zosyn To Ciprofloxacin Will f/u cultures Subjective ROS Limited/Unobtainable: No Constitutional: Reports: no symptoms Respiratory: Reports: dry cough Gastrointestinal/Abdominal: Reports: no symptoms Genitourinary: Reports: no symptoms Neurologic: Reports: no symptoms Musculoskeletal: Reports: no symptoms Allergies: Coded Allergies: DEMECLOCYCLINE (Verified Allergy, Unknown, 12/29/10) Objective Vital Signs Last 24 Hour Vital Signs Date Time Temp Pulse Resp B/P (MAP) Pulse Ox O2 Delivery O2 Flow Rate FiO2 12/01/18 04:00 97.8 85 17 130/55 (80) 98 12/01/18 00:00 97.6 83 16 126/57 (80) 98 11/30/18 21:00 Room Air 11/30/18 20:00 97.3 88 18 131/54 (79) 98 11/30/18 16:00 97.8 82 18 126/47 (73) 100 Height (Feet): 5 Height (Inches): 5.00 Weight (Pounds): 105 General Appearance: no acute distress HEENT: mucous membranes moist Respiratory/Chest: lungs clear Cardiovascular: normal rate Abdomen: soft, non tender Neurologic/Psychiatric: alert, oriented x 3, responsive Microbiology Date/Time Source Procedure Growth Status 11/29/18 12:17 Blood Blood Culture - Preliminary NO GROWTH AFTER 24 HOURS Resulted 11/28/18 18:35 Blood Blood Culture - Preliminary NO GROWTH AFTER 48 HOURS Resulted 11/28/18 18:25 Blood Blood Culture - Preliminary NO GROWTH AFTER 48 HOURS Resulted 11/28/18 19:15 Urine,Clean Catch Urine Culture - Final Proteus Vulgaris Complete Current Medications Medications (Trade) Dose Ordered Sig/Art Route PRN Reason Start Time Stop Time Status Last Admin Dose Admin Acetaminophen (Tylenol) 650 mg Q4H PRN ORAL Mild Pain (Pain Scale 1-3) 11/26/18 16:45 12/26/18 16:44 11/29/18 23:53 Acetaminophen/ Hydrocodone Bitart ([place] 5/325) 1 tab Q6H PRN ORAL Moderate Pain (Pain Scale 4-6) 11/27/18 14:00 12/04/18 13:59 11/28/18 09:09 Acetaminophen/ Hydrocodone Bitart ([place] 5/325) 2 tab Q6H PRN ORAL Severe Pain (Pain Scale 7-10) 11/26/18 17:45 12/03/18 17:44 Atorvastatin Calcium (Lipitor) 10 mg THREE TIMES A WEEK ORAL 11/28/18 09:00 12/28/18 08:59 12/01/18 09:24 Dextrose (Dextrose 50%) 25 ml Q30M PRN IV Hypoglycemia 11/26/18 16:45 12/26/18 16:44 Dextrose (Dextrose 50%) 50 ml Q30M PRN IV Hypoglycemia 11/26/18 16:45 12/26/18 16:44 Docusate Sodium (Colace) 100 mg THREE TIMES A DAY ORAL 11/27/18 09:00 12/27/18 08:59 11/30/18 17:32 Enoxaparin Sodium (Lovenox) 30 mg DAILY SUBQ 11/27/18 09:00 12/07/18 08:59 12/01/18 09:26 Famotidine (Pepcid) 20 mg DAILY ORAL 11/27/18 09:00 12/27/18 08:59 12/01/18 09:24 Fish Oil (Fish Oil) 1,000 mg DAILY ORAL 11/27/18 09:00 12/27/18 08:59 12/01/18 09:24 Magnesium Hydroxide (Mom) 30 ml DAILYPRN PRN ORAL Constipation 11/26/18 17:45 12/26/18 17:44 Morphine Sulfate (Morphine Sulfate) 2 mg Q3H PRN IVP Severe Breakthru Pain (>7) 11/27/18 14:00 12/03/18 16:44 Patient Own Medication (Patient's Own Med) 1 ea TWICE A DAY BOTH EYES 11/26/18 23:00 12/26/18 22:59 12/01/18 09:25 Piperacillin Sod/ Tazobactam Sod 3.375 gm/Dextrose 110 ml @ 27.5 mls/hr EVERY 8 HOURS IVPB 11/28/18 22:00 12/05/18 21:59 12/01/18 05:05 Prochlorperazine (Compazine) 10 mg Q6H PRN IVP Nausea & Vomiting 11/26/18 17:45 12/26/18 17:44 Temazepam (Restoril) 7.5 mg DAILYPRN PRN ORAL Insomnia 11/26/18 17:45 12/03/18 17:44 Timolol Maleate (Timoptic 0.5% Op Soln) 1 drop TWICE A DAY BOTH EYES 11/26/18 23:00 12/26/18 22:59 12/01/18 09:25 Zolpidem Tartrate (Ambien) 5 mg HSPRN PRN ORAL Insomnia 11/26/18 16:45 12/03/18 16:44 Shukri Braxton MD Dec 01, 2018 12:46
--- NOTE | 2018-12-01 13:23 | General Progress Note ---
Assessment/Plan Problem List: (1) Closed right hip fracture ICD Codes: S72.001A - Fracture of unspecified part of neck of right femur, initial encounter for closed fracture SNOMED: 375767438 Qualifiers: Qualified Codes: S72.001A - Fracture of unspecified part of neck of right femur, initial encounter for closed fracture (2) Non-Hodgkin lymphoma in remission ICD Codes: C85.90 - Non-Hodgkin lymphoma, unspecified, unspecified site SNOMED: 478724336 (3) Fever ICD Codes: R50.9 - Fever, unspecified SNOMED: 452530332 (4) UTI (urinary tract infection) ICD Codes: N39.0 - Urinary tract infection, site not specified SNOMED: 41964189 Assessment/Plan Pain meds PT DVT prophylaxis DC today Subjective Allergies: Coded Allergies: DEMECLOCYCLINE (Verified Allergy, Unknown, 12/29/10) Subjective walks in the hallway Objective Last 24 Hour Vital Signs Date Time Temp Pulse Resp B/P (MAP) Pulse Ox O2 Delivery O2 Flow Rate FiO2 12/01/18 04:00 97.8 85 17 130/55 (80) 98 12/01/18 00:00 97.6 83 16 126/57 (80) 98 11/30/18 21:00 Room Air 11/30/18 20:00 97.3 88 18 131/54 (79) 98 11/30/18 16:00 97.8 82 18 126/47 (73) 100 Intake and Output 11/30/18 12/01/18 19:00 07:00 Intake Total 500 ml Balance 500 ml Intake Oral 500 ml # Voids 3 4 # Bowel Movements 1 Height (Feet): 5 Height (Inches): 5.00 Weight (Pounds): 105 Cardiovascular: normal rate Respiratory/Chest: lungs clear Edema: no edema noted Generalized Jules Braxton MD Dec 01, 2018 13:23
[2018-12-01] MEDS ORDERED: CIPROFLOXACIN500 M2 ORAL (13:26)
[2018-12-01] MEDS ORDERED: LOVENOX10 MG SUBQ (13:26)
[2018-12-01] MEDS ORDERED: NORCO 5-325 TA1 EACH ORAL (13:26)
--- NOTE | 2018-12-01 15:58 | NUR ---
CASE MANAGEMENT: DCPNOTE UPON DISCHARGE PATIENT WILL TRANSFER TO [facility] [phone] SKILLEDROOM 26B PATIENT IN AGREEMENT WITH TRANSFERRING TO THIS FACILITY TRANSPORTATION [facility] [employer] [facility] [employer] [facility] [id number] ETA 18:00
[2018-12-01 16:00] VITALS: BP 120/78
--- NOTE | 2018-12-01 19:45 | NUR ---
NURSE NOTES: Pt discharged to [facility], gave report to Lorin and endorsed medication, discharge, and wound care orders, as well as flu and pneumonia vax proof in 11/26/2018. surgical site dry and intact upon transfer. Belongings with patient upon discharge and signed by RN and patient. IV site d/gladis and patient wristband removed. RN called and informed Martha Russell to inform her of patient's discharge. RN gave patient her home meds - 2 timolol and 1 brinzolamide - with patient upon discharge.
[2018-12-01] MEDS ORDERED: Ciprofloxacin 500mg tab ORAL SCH (21:00)
--- NOTE | 2018-12-02 08:58 | Cardiology Report ---
APPROVED REPORT EXAM: Two-dimensional and M-mode echocardiogram with Doppler and color Doppler. INDICATION Mitral Valve Disorder M-Mode DIMENSIONS IVSd1.0 (0.7-1.1cm)Left Atrium (MM)3.4 (1.6-4.0cm) LVDd3.5 (3.5-5.6cm)Aortic Root3.0 (2.0-3.7cm) PWd0.9 (0.7-1.1cm)Aortic Cusp Exc.1.7 (1.5-2.0cm) LVDs2.4 (2.5-4.0cm) PWs1.2 cm Normal left ventricular chamber size, hyperdynamic systolic function and wall motion. Left ventricular ejection fraction estimated to be 70-75 %. Borderline mild left ventricular hypertrophy. No evidence of pericardial effusion. All other cardiac chamber sizes are within normal limits. Aortic valve calcification with decreased cusp excursion c/w aortic stenosis. Moderately thickened mitral valve leaflets with normal excursion. Moderate mitral annulus and aortic root calcification. Pulmonic valve not well visualized. Normal tricuspid valve structure. IVC measured at 2.1 cm with slight physiologic collapse suggestive of mildly increased RA pressure. A color flow and spectral Doppler study was performed and revealed: Trace aortic regurgitation. Peak aortic valve gradient of 30 mm Hg and a mean of 20 mmHg. Aortic valve area 1.4 cm2 calculated by continuity equation suggestive of aortic stenosis. Moderate mitral regurgitation. Peak mitral valve gradient of 7 mm Hg and a mean of 3 mmHg. Mitral diastolic velocities suggest reduced left ventricular relaxation c/w mild LV diastolic dysfunction (Grade I). Moderate tricuspid regurgitation. Tricuspid systolic velocities suggests peak right ventricular systolic pressure of 50 mmHg, consistent with moderate pulmonary hypertension.
--- NOTE | 2018-12-03 10:05 | Discharge Summary ---
Discharge Summary Discharge Summary _ DATE OF ADMISSION: 11/26/2018 DATE OF DISCHARGE: 12/01/2018 DISCHARGED BY: Dr. 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 Patient was unable to ambulate after fall. Patient was brought to emergency room for evaluation and was diagnosed with acute right hip fracture. Right hip and pelvis x-ray revealed acute intertrochanteric fracture of the right hip. Upon evaluation vital signs revealed severely elevated blood pressure - 226/ 94. Laboratory workup revealed leukocytosis WBC 16.3, stable hemoglobin hematocrit. Stable coagulation profile Stable electrolytes and renal parameters. Urinalysis revealed no evidence of UTI. Patient admitted with diagnosis of acute right hip fracture secondary to fall, non-Hodgkin lymphoma, in remission, history of glaucoma, elevated blood pressure ( without history of hypertension). . CONSULTANTS: home health clinical supervisor Dr. Su ID specialist Dr. Lo orthopedic surgery [facility] COURSE: Patient admitted to medical surgical floor. Orthopedic surgery consult was requested. Patient was started on the IV hydration and kept n.p.o. Cardiology clearance for surgery was requested. Blood pressure was initially managed with clonidine. Echocardiogram revealed preserved ejection fraction 70-75%. Borderline mild left ventricular hypertrophy. No evidence of wall motion abnormality. Noted evidence of aortic stenosis. Moderate mitral regurgitation. Right ventricular systolic pressure of 50 , consistent with moderate pulmonary hypertension Coagulator seen and evaluated patient. Patient did not experience any chest pain. Cardiology cleared patient for surgery. Patient subsequently undergone repair of right hip fracture on . Postoperatively, pain management was addressed, and pain was controlled. DVT prophylaxis provided. Bowel regimen instituted. Hip precaution maintained. Patient was started to work with physical therapist.Incentive spurimetry encouraged while in the bed. Patient developed postoperative fever. Urinalysis revealed Proteus. Patient was on antibiotic as per ID specialist recommendation. Antibiotic changed to oral upon discharge to complete the course. Home medications were continued, including statin and anti-glaucoma drops. Initially elevated blood pressure stabilized , was possibly due to acute fracture, no need for routine antihypertensive medication. Fever resolved. Initial leukocytosis resolved. Patient required further rehabilitation at the skilled facility. Transfer was arranged to [facility]. Patient was subsequently transferred via ambulance for further rehabilitation. FINAL DIAGNOSES: Right hip intertrochanteric fracture secondary to non-syncopal fall Status post right hip nailing Proteus UTI Non-Hodgkin lymphoma, in remission Glaucoma Elevated blood pressure without history of hypertension - resolved DISCHARGE MEDICATIONS: See Medication Reconciliation list. DISCHARGE INSTRUCTIONS: [facility] Follow up with medical doctor at the facility. I have been assigned to dictate discharge summary for this account. I was not involved in the patient's management. Alba Valentine NP Dec 03, 2018 10:05
== END 2018-12-01 19:15 | DRG 481 ==
LOC: EDBD 13:58 → EMR 14:46 → 3E 15:05 → EDBEDREQ 15:26
PROC: 0QS636Z Reposition Right Upper Femur with Intramedullary Internal Fixation Device, Percutaneous Approach (ICD-10-PCS; principal; 2018-11-26 17:30)
DX: S72.141A Displaced intertrochanteric fracture of right femur, initial encounter for closed fracture (principal); N39.0 Urinary tract infection, site not specified; W01.0XXA Fall on same level from slipping, tripping and stumbling without subsequent striking against object, initial encounter; Y92.89 Other specified places as the place of occurrence of the external cause; H40.9 Unspecified glaucoma; Z85.72 Personal history of non-Hodgkin lymphomas; Z88.8 Allergy status to other drugs, medicaments and biological substances; E78.5 Hyperlipidemia, unspecified; B96.4 Proteus (mirabilis) (morganii) as the cause of diseases classified elsewhere; M19.90 Unspecified osteoarthritis, unspecified site; Z87.891 Personal history of nicotine dependence; R50.9 Fever, unspecified; I34.0 Nonrheumatic mitral (valve) insufficiency; I27.20 Pulmonary hypertension, unspecified; Z91.81 History of falling
CPT/HCPCS: 36415; 71045; 72170; 76001; 80053; 81001; 82248; 85025; 85610; 85730; 86850; 86900; 86901; 87040; 87081; 87086; 87181; 93306; 94003; 94150; 96361; 96374; 96375; 99285; J2250; J2405